=== PATIENT | female | born 1970 | race Caucasian/White ===

== ENCOUNTER 2021-11-05 22:33 | Inpatient (IN) | payer MEDICAID ==
[~2021-11-05] VITALS: Ht 149.9 cm; Wt 47.6 kg
--- NOTE | 2021-11-05 23:00 | NUR ---
PATIENT ANISH 39 [facility], C/O MISSING DIALYSIS TODAY. PATIENT ON TRACH/VENT TOLERATING SETTING AT THIS TIME/ PATIENT A/O X2-3. G TUBE INPLACE FLUSHING WELL. PATIENT CONNECTED TO CARDIAC AND POX MONITOR.
--- NOTE | 2021-11-05 23:12 | NUR ---
RT NOTE PT RECEIVED TRACH'D WITH A SHILEY 7.5 CUFFED. PLACED PATIENT ON GIVEN MECHANICAL VENT SETTINGS OF AC18 VT300 30% PEEP+5. NO SIGNS OF RESPIRATORY DISTRESS NOTED. PATIENT IS AWAKE AND ALERT. ALARMS ARE SET AND AUDIBLE. MECHANICAL VENT IS PLUGGED INTO RED OUTLET. EMERGENCY EQUIPMENT AT PATIENT BEDSIDE. WILL CONTINUE TO MONITOR PATIENT. Addendum: 11/05/21 at 2315 by LUIS RICKETTS RT Amended: Links added.
[2021-11-05 23:17] LABS: BASOPHILS # (AUTO) 0.2 K/uL (0.0-0.2); BASOPHILS % (AUTO) 0.8 % (0.0-2.0); EOSINOPHILS % (AUTO) 2.2 % (0.0-6.0); HEMATOCRIT 32 % (33-45); HEMOGLOBIN 10.3 g/dL (11.5-14.8); LYMPHOCYTES # (AUTO) 1.9 K/uL (0.8-4.8); LYMPHOCYTES % (AUTO) 8.3 % (20.0-44.0); MEAN CORPUSCULAR HGB CONC 33 g/dl (31.0-36.0); MEAN CORPUSCULAR VOLUME 91 fL (82-100); MONOCYTES # (AUTO) 1.4 K/uL (0.1-1.30); MONOCYTES % (AUTO) 6.1 % (2.0-12.0); NEUTROPHILS # (AUTO) 19.2 K/uL (1.8-8.9); NEUTROPHILS % (AUTO) 82.6 % (43.0-81.0); PLATELET COUNT (AUTO) 663 K/uL (150-450); RED BLOOD CELL COUNT(AUTO) 3.46 MIL/uL (4.0-5.2); WHITE BLOOD COUNT (AUTO) 23.3 K/uL (4.3-11.0)
[2021-11-05 23:36] LABS: CALCIUM, SERUM 10.1 mg/dL (8.5-10.1); CARBON DIOXIDE 24 mmol/L (21-32); CHLORIDE 92 mmol/L (98-107); CREATININE 4.4 mg/dL (0.6-1.3); GLUCOSE 98 mg/dL (74-106); SODIUM SERUM 129 mmol/L (136-145); UREA NITROGEN, BLOOD 62 mg/dL (7-18)
[2021-11-05 23:47] LABS: BAND % (MANUAL) 2 % (0.0-5.0); LYMPHOCYTES % (MANUAL) 12 % (16-48); MONOCYTES % (MANUAL) 5 % (0-11.0); NEUTROPHILS % (MANUAL) 78 (42-76)
[2021-11-05 23:48] LABS: EOSINOPHILS % (MANUAL) 2 % (0-4)
[2021-11-05 23:58] LABS: ALANINE AMINOTRANSFERASE 35 U/L (12-78); ALBUMIN 2.6 g/dL (3.4-5.0); ASPARTATE AMINOTRANSFERASE 45 U/L (15-37); BILIRUBIN,DIRECT 0.7 mg/dL (0.0-0.2); TOTAL PROTEIN, SERUM 9.1 g/dL (6.4-8.2)
[2021-11-06] MEDS ORDERED: INSULIN REGULAR, HUMAN 100 UNIT/ML 10 ML VIAL IV ONE
[2021-11-06] MEDS ORDERED: PIPERACILLIN /TAZOBACTAM 3.375 G in IV D5W 50 ML IV ONE
[2021-11-06] MEDS ORDERED: SODIUM BICARBONATE SYR 50 MEQ/50 ML DISP.SYRIN IV ONE
[2021-11-06] MEDS ORDERED: ALBUTEROL FS 2.5 MG/3 ML VIAL.NEB NEB ONE
[2021-11-06] MEDS ORDERED: CEFTRIAXONE 1GM BAG (ER ONLY) 1 GM/50 ML PIGGYBACK IV ONE
[2021-11-06] MEDS ORDERED: FUROSEMIDE 40 MG/4 ML VIAL IV ONE
[2021-11-06] MEDS ORDERED: AZITHROMYCIN 500 MG in IV D5W 250 ML IV ONE
[2021-11-06] MEDS ORDERED: CALCIUM CHLORIDE 1,000 MG/10 ML DISP.SYRIN IV ONE
[2021-11-06] MEDS ORDERED: DEXTROSE 50%-WATER 50 ML DISP.SYRIN IV ONE
[2021-11-06] MEDS ORDERED: VANCOMYCIN 1 GM in IV D5W 250 ML IV ONE
[2021-11-06] MEDS ORDERED: DEXTROSE 50%-WATER 50 ML DISP.SYRIN ONE (00:13)
[2021-11-06] MEDS ORDERED: SODIUM BICARBONATE SYR 50 MEQ/50 ML DISP.SYRIN ONE (00:13)
[2021-11-06] MEDS ORDERED: CALCIUM CHLORIDE 1,000 MG/10 ML DISP.SYRIN ONE (00:13)
[2021-11-06] MEDS ORDERED: VANCOMYCIN 1 GM VIAL ONE (00:13)
[2021-11-06] MEDS ORDERED: PIPERACILLIN /TAZOBACTAM 3.375 G VIAL IV ONE (00:13)
[2021-11-06] MEDS ORDERED: FUROSEMIDE 20 MG/2 ML VIAL ONE (00:13)
[2021-11-06] MEDS ORDERED: INSULIN REGULAR, HUMAN 100 UNIT/ML 10 ML VIAL ONE (00:14)
[2021-11-06 00:29] LABS: ALKALINE PHOSPHATASE 1090 U/L (46-116)
[2021-11-06] MEDS ORDERED: ALBUTEROL FS 2.5 MG/3 ML VIAL.NEB ONE (00:44)
[2021-11-06] MEDS ORDERED: MAG HYDROX/AL HYDROX/SIMETH 30 ML UDC PO PRN (01:30)
[2021-11-06] MEDS ORDERED: ACETAMINOPHEN 325 MG TABLET PO PRN (01:30)
[2021-11-06] MEDS ORDERED: ZOLPIDEM TARTRATE 5 MG TABLET PO PRN (01:30)
[2021-11-06] MEDS ORDERED: MAGNESIUM HYDROXIDE 30 ML UDC PO PRN (01:30)
[2021-11-06] MEDS ORDERED: Z GUARD REMEDY 2 OZ OINT TP PRN (01:30)
--- NOTE | 2021-11-06 01:30 | NUR ---
RAD AT BEDSIDE
--- NOTE | 2021-11-06 02:56 | NUR ---
BED 102
--- NOTE | 2021-11-06 03:04 | NUR ---
REPROT GIVEN TO RAJNI CLIFTON
--- NOTE | 2021-11-06 03:05 | NUR ---
RN NOTE REPORT RECEIVED BY RAJNI DE JESUS FOR YECENIA.
--- NOTE | 2021-11-06 03:31 | NUR ---
PT TRANSFERRED UNDER ACLS
--- NOTE | 2021-11-06 03:35 | NUR ---
RN NOTE PT BROUGHT TO UNIT VIA GURNEY FROM ER. PT IS TRACH.VENT WITH SETTING AT P#7, ACl18, TV: 300, AND PEEP 5. PT IS NOT ALERT OR ORIENTED, ON TELE MONITOR SHOWING NSR. SACRAL WOUND NOTED. IV ACCESS NOTED ON RIGHT FOREARM #20. LINE FLUSHED, PATENT, AND INTACT. WILL CONTINUE TO MONITOR.
--- NOTE | 2021-11-06 03:45 | NUR ---
RN NOTE PT BLOOD SUGAR SAID LOW ON ACCUCHECK. D50 ADMINISTERED. RECTAL TEMPERATURE TAKEN AND TEMP WAS 91.4. BEAR ASHLEY PUT ON PATIENT. DR. ANDRADE NOTIFIED ABOUT PT OVERALL CONDITION REGARDING LOW TEMPERATURE AND BLOOD SUGAR. BLOOD PRESSURE WAS ALSO 200/86. DR. ANDRADE ORDERED APRESOLINE 10MG. ORDER NOTED AND CARRIED OUT.
--- NOTE | 2021-11-06 03:55 | NUR ---
RN NOTE PT IS NOW ALERT AND ORIENTED AFTER ADMINISTRATION OF D50. PT IS ABLE TO MOVE AROUND AND MOUTH WORDS. WILL CONTINUE TO MONITOR AND ASSESS FOR ANY CHANGES DURING SHIFT.
[2021-11-06] MEDS: DEXTROSE 50%-WATER 50 ML DISP.SYRIN IV PRN ×2 (03:57→07:08)
[2021-11-06 04:00] VITALS: BP 200/86
[2021-11-06] MEDS ORDERED: hydrALAZINE HCL IV 20 MG VIAL IV ONE (04:00)
[2021-11-06] MEDS: HYDROCODONE/APAP 5/325MG TABLET PO PRN ×2 (04:14→17:52)
--- NOTE | 2021-11-06 04:20 | NUR ---
0420 BS re-checked with 133mg/dl result. Patient sleeping but responsive to name. No signs of distress noted. Will cont. to monitor.
--- NOTE | 2021-11-06 05:16 | NUR ---
RN NOTE PT BLOOD PRESSURE NOW 128/62 UPON RE-ASSESSMENT. WILL CONTINUE TO MONITOR BLOOD SUGAR, BP, AND TEMPERATURE THROUGHOUT SHIFT.
--- NOTE | 2021-11-06 06:43 | NUR ---
RN NOTE PT IS TRACH/VENT WITH SETTINGS AT P#7, AC:18, TV: 300, AND PEEP 5. PT IS NOW ALERT, NODS HEAD, AND SMILES. LAST BP READING WAS WNL, BLOOD SUGAR WAS 133. PT STILL COLD, BUT TEMPERATURE IMPROVING WITH BEAR HUGGER. ON TELE MONITOR SHOWING NSR. PICTURES TAKEN OF LEFT LEG, SACRUM, AND LEFT HAND. IV ACCESS NOTED ON RIGHT FOREARM #20. LINE FLUSHED, PATENT, AND INTACT. ALL DUE MEDS GIVEN ORDERED. PT KEPT CLEAN AND COMFORTABLE. ALL SAFETY MEASURES IMPLEMENTED. CALL LIGHT WITHIN REACH. BED ALARM ON. BED LOCKED AND IN LOWEST POSITION. SIDE RIALS UP. WILL ENDORSE TO MORNING SHIFT RN FOR YECENIA.
--- NOTE | 2021-11-06 07:09 | NUR ---
RN NOTE PT BLOOD SUGAR SAID LOW INITIALLY. AFTER RE-CHECKING THE SECOND TIME, THE BLOOD SUGAR WAS 18. D50 ADMINISTERED VIA IVP. WILL RECHECK SUGAR IN 30 MINUTES AND LET BABS MANZANO KNOW.
[2021-11-06] MEDS: BLOOD SUGAR DIAGNOSTIC 1 EACH STRIP VI SCH ×4 (07:38→22:16)
--- NOTE | 2021-11-06 07:41 | NUR ---
RN OPENING NOTE PATIENT RECEIVED IN BED, OBTUNDED, EYES OPEN. PATIENT ON MECHANICAL VENTILATOR WITH NO SIGNS OF LABORED BREATHING AT THIS TIME. BLOOD SUGAR LOW IN THE MORNING OF 18, D50 PUSHED, BLOOD SUGAR 150 AT THIS TIME AND PATIENT AWAKE. G TUBE IN PLACE, NO FEEDING AT THIS TIME. RIGHT FA 20G IN PLACE, PATENT WITH NO SIGNS OF INFILTRATION. BED LOCKED AND IN LOWEST POSITION, CALL LIGHT WITHIN REACH, 3 SIDE RAILS UP. ALL SAFETY MEASURES IMPLEMENTED. WILL CONTINUE TO MONITOR.
[2021-11-06] MEDS ORDERED: CRAN3875 JT (07:50)
[2021-11-06] MEDS ORDERED: LIDO35.4 TD (07:50)
[2021-11-06] MEDS ORDERED: CRAN425C6 JT (07:50)
[2021-11-06] MEDS ORDERED: ACET650S26 JT (07:50)
[2021-11-06] MEDS ORDERED: CHLO473M5 MM (07:50)
[2021-11-06] MEDS ORDERED: [UNRECOGNIZED DRUG - CODE] TD (07:50)
[2021-11-06] MEDS ORDERED: INSU100V7 SQ (07:50)
[2021-11-06] MEDS ORDERED: NUT.237L66 JT (07:50)
[2021-11-06] MEDS ORDERED: HYDR-4075 JT (07:50)
[2021-11-06] MEDS ORDERED: PANT40SU2 JT (07:50)
[2021-11-06] MEDS ORDERED: IPRA3AMP23 IH ×2 (07:50)
[2021-11-06] MEDS ORDERED: MINE105O TP (07:50)
[2021-11-06] MEDS ORDERED: HYDR4TAB57 JT (07:50)
--- NOTE | 2021-11-06 07:54 | NUR ---
WOUND CARE CONSULT: REVIEWED CHART, NURSING DOCUMENTATION AND PHOTOS WHICH INDICATE LEFT LOWER EXTREMITY AMPUTATION SITE, SACRAL UNSTAGEABLE PRESSURE ULCER AND LEFT HAND DISCOLORATION/DRY ABRASION, ALL PRESENT ON ADMISSION. RECOMMEND SURGICAL CONSULT. DR STAHL NOTIFIED OF SURGICAL CONSULT REQUEST. RECOMMENDATIONS MADE FOR SKIN PROTECTION. DISCUSSED WITH NURSING STAFF. FIRST STEP LOW AIRLOSS MATTRESS IS ON ORDER. MD IN AGREEMENT WITH PLAN OF CARE. Addendum: 11/06/21 at 0825 by POLI SEYMOUR WNDNU PT IS VERY THIN AND BONY. DIETARY CONSULT IN PLACE.
[2021-11-06 08:00] VITALS: BP 135/64
[2021-11-06] MEDS ORDERED: PIPERACILLIN /TAZOBACTAM 3.375 G in IV D5W 50 ML IV SCH (08:00)
[2021-11-06] MEDS: Sodium Chloride 154 MEQ in IV 10% DEXTROSE 1,000 ML IV SCH ×2 (08:12→22:21)
[2021-11-06] MEDS ORDERED: VANCOMYCIN 500 MG in IV D5W 100 ML IV PRN (08:30)
[2021-11-06] MEDS ORDERED: IV 10% DEXTROSE 1,000 ML IV PRN (08:30)
[2021-11-06] MEDS: ZOSYN IVPB 2.25 G in IV D5W 50ml IV SCH ×3 (09:16→17:52)
[2021-11-06 12:00] VITALS: BP 110/85
--- NOTE | 2021-11-06 13:00 | NUR ---
RN NOTE HEMODYALISIS COMPLETED AT BEDSIDE. PATIENT TOLERATED WELL. VITAL SIGNS STABLE. NO FLUID REMOVED. WILL CONTINUE TO MONITOR.
--- NOTE | 2021-11-06 15:40 | NUR ---
RN NOTE RIGHT LUNG THORACENTESIS AT BEDSIDE COMPLETED. PATIENT TOLERATED THE PROCEDURE WELL. SAMPLE TAKEN TO LAB PER ORDER. CHEST XRAY COMPLETED. WILL CONTINUE TO MONITOR.
[2021-11-06 16:00] VITALS: BP 172/63
--- NOTE | 2021-11-06 18:34 | NUR ---
RN CLOSING NOTE PATIENT IN BED, RESTING, RESPONSIVE. PATIENT WITH MECHANICAL VENTILATION WITH FIO2 OF 30 AND SATURATING 98%. G TUBE IN PLACE RUNNING NEPRO AT 55CC/HR. RIGHT UPPER ARM MIDLINE 18G AND RIGHT FA 20G PIV IN PLACE, PATENT WITH NO SIGNS OF INFILTRATION AND RUNNING D10 AT 75CC/HR. ALL NEEDS ATTENDED DURING SHIFT. NO SIGNS OF DISTRESS NOTED AT THIS TIME. BED LOCKED AND IN LOWEST POSITION, CALL LIGHT WITHIN REACH, 3 SIDE RAILS UP. ALL SAFETY MEASURES IMPLEMENTED. WILL ENDORSE TO AUTOMOTIVE ARTIST NURSE.
--- NOTE | 2021-11-06 19:10 | NUR ---
RN NOTES RECEIVED REPORT FROM MORNING RN. PATIENT IN BED A/O X1-2. ABLE TO MAKE NEEDS KNOWN. NOT IN DISTRESS DORYS SOB AT THIS TIME. WITH TRACH SHILEY # 7 INTACT CONNECETED TO MECHANICAL VENTILATOR WITH PRESCRIBED SETTING. WITH JEJUNOSTOMY PATENT CONNECTED TO CONTINOUS FEEDING OF NEPRO AT 55CC/HR TOLERAING WELL BY THE PATIENT. WITH UA MIDLINE PATENT FLUSHES WELL WITH PERMACATH AR L CHESTWALL INTACT NO BLEEDING NOTED . WITH ONGONING IVF OF D10W @75CC/HR TOLERATING WELL. WITH L AKA INTACT NO DRAINAGE NOTED AT THE DRESSING. VITAL SIGNS TAKEN AND RECORDED. ALL SAFETY MEASURES IN PLACE AT ALL TIMES. HOB ELEVATED, CALL LIGHT WITHIN REACH. S/P THORACENTHESIS IN THE MORNING. WILL CLOSELY MONITOR THE PATIENT.
--- NOTE | 2021-11-06 19:54 | NUR ---
RT NOTE PT RECEIVED AWAKE/ALERT WITH TRACH ON MECHANICAL VENTILATION. CUFF CHECKED. SUCTION DONE, TRACH SECURED AND PATENT. SMALL SECRETIONS NOTED. VENT PLUGGED TO RED OUTLET. ALARMS ON AND AUDIBLE. WILL CONTINUE TO MONITOR. Addendum: 11/06/21 at 1955 by KELSY MARTINEZ RT Amended: Links added.
[2021-11-06 20:00] VITALS: BP 148/66
[2021-11-06] MEDS ORDERED: MEROPENEM 500 MG in IV NS 0.9% 50 ML IV SCH (21:30)
[2021-11-06] MEDS ORDERED: MEROPENEM 500 MG VIAL IV ONE (22:01)
--- NOTE | 2021-11-06 22:20 | NUR ---
RN NOTES BS 70MG/DL WILL CONTINUE TO MONITOR. PATIENT IS AWAKE AND RESPONSIVE. WILL CONTINUE TO MONITOR
[2021-11-06] MEDS: DAKINS QUARTER STRENGTH (0.125%) 480 ML BOTTLE TOP SCH (23:00)
--- NOTE | 2021-11-06 23:47 | NUR ---
CUTTER DOWN NOTE NURSING DISH MAKER INFORMED THAT NEEDED NS 153 MEQ D10 1L BAG, ALSO INFORMED BETTYE ANDRADE BUCKSHOT SWAGE OPERATOR REGARDING NA LEVEL OF 129. PER BETTYE RECHECK NA LEVEL. AND FOLLOW UP. ORDER NOTED AND CARRIED OUT.
[2021-11-07] VITALS (8 sets, daily range): BP systolic 123–174; BP diastolic 39–88
--- NOTE | 2021-11-07 01:45 | NUR ---
SENIOR PHYSICAL THERAPIST NOTE INFORMED BETTYE ANDRADE NA LEVEL 130 AND PER BETTYE START D10 NS, INFORMED HER THAT IS NOT AVAILABLE AT THIS, BETTYE ORDERED D5NS 75 ML/HR, ORDER NOTED AND CARRIED OUT. INFORMED NURSE CUMMINS TO CONTINUE TO FOLLOW UP. BS AT THIS TIME 156. NO DISTRESS OR DISCOMFORT NOTED.
[2021-11-07] MEDS: IV D5/ 0.9% NACL 1,000 ML IV PRN ×2 (01:51→14:09)
[2021-11-07] MEDS: ONDANSETRON HCL/PF 4 MG/2 ML VIAL IVP PRN (02:07)
--- NOTE | 2021-11-07 02:07 | NUR ---
RN NOTES PATIENT WITH 1 EPISODE OF EMESIS SMALL AMOUNT PRN ZOFRAN GIVEN. WILL CONTINUE TO MONITOR
--- NOTE | 2021-11-07 06:32 | NUR ---
RN NOTES PATIENT REMAINS STABLE THE WHOLE SHIFT NO DISTRESS. ALL DUE MEDS GIVEN ORDERED. KEPT CLEAN AND DEY AT ALL TIMES. BOTH SIDERAILS UP FOR SAFETY WOUND DRESSING DONE TOLERATED WELL. REPOSITION PATIENT Q2H. ALL NEEDS ATTENDED PROMPTLY. WILL CONTINUE TO MONITOR.
[2021-11-07 06:47] LABS: BASOPHILS # (AUTO) 0.1 K/uL (0.0-0.2); BASOPHILS % (AUTO) 0.5 % (0.0-2.0); EOSINOPHILS % (AUTO) 2.3 % (0.0-6.0); HEMATOCRIT 30 % (33-45); HEMOGLOBIN 9.6 g/dL (11.5-14.8); LYMPHOCYTES # (AUTO) 2.7 K/uL (0.8-4.8); LYMPHOCYTES % (AUTO) 11.9 % (20.0-44.0); MEAN CORPUSCULAR HGB CONC 33 g/dl (31.0-36.0); MEAN CORPUSCULAR VOLUME 92 fL (82-100); MONOCYTES # (AUTO) 1.8 K/uL (0.1-1.30); MONOCYTES % (AUTO) 7.7 % (2.0-12.0); NEUTROPHILS # (AUTO) 17.8 K/uL (1.8-8.9); NEUTROPHILS % (AUTO) 77.6 % (43.0-81.0); PLATELET COUNT (AUTO) 596 K/uL (150-450); WHITE BLOOD COUNT (AUTO) 22.9 K/uL (4.3-11.0)
[2021-11-07 06:59] LABS: CALCIUM, SERUM 9.3 mg/dL (8.5-10.1); CREATININE 2.4 mg/dL (0.6-1.3); MAGNESIUM 2.2 mg/dL (1.8-2.4); PHOSPHORUS 3.1 mg/dL (2.5-4.9); POTASSIUM 3.8 mmol/L (3.5-5.1)
--- NOTE | 2021-11-07 07:40 | NUR ---
RN MORNING NOTE PT RECEIVED IN BED WITH HOB SEMI FOWLERS. PT IS ON MECHANICAL VENTILATOR TRACH #7 AC 18, TV 300, FIO2 30 PEEP 5 O2 SAT 98% TOLERATING WELL WITH NO SIGNS OF LABORED BREATHING OR DISTRESS. PT IS A/OX 1-2. PT IS ON DIAPER AND RECEIVING NEPHRO @ 35ML/HR AND TITRATE TOLERATED. PT HAS R FA #20 AND R UA #18 INFUSING WITH D10 @ 75ML/R. BED IS LOCKED IN LOWEST POSITION X3 BED RAILS AND ALL HOSPITAL PROTOCOLS IN PLACE. WILL CONTINUE TO MONITOR THIS SHIFT.
[2021-11-07] MEDS: BLOOD SUGAR DIAGNOSTIC 1 EACH STRIP VI SCH ×4 (08:18→21:28)
[2021-11-07] MEDS: INSULIN REGULAR, HUMAN 100 UNIT/ML 3 ML VIAL SQ PRN (08:31)
[2021-11-07] MEDS: MEROPENEM 500 MG in IV NS 0.9% 50 ML IV SCH ×2 (09:55→20:24)
[2021-11-07] MEDS: DAKINS QUARTER STRENGTH (0.125%) 480 ML BOTTLE TOP SCH (09:55)
--- NOTE | 2021-11-07 10:00 | NUR ---
RN NOTE TUBE FEEDING INCREASED TO 40ML/HR FROM 35. PT TOLERATING WELL AT THIS TIME.
[2021-11-07] MEDS: DEXTROSE 50%-WATER 50 ML DISP.SYRIN IV PRN (11:56)
--- NOTE | 2021-11-07 12:00 | NUR ---
RN NOTE ACCUCHECK PT BS 38. ADMINISTERED D50 AND WILL REASSESS.
--- NOTE | 2021-11-07 12:26 | NUR ---
RN NOTE BLOOD SUGAR REASSESSMENT PT BS 165.
--- NOTE | 2021-11-07 16:00 | NUR ---
RN NOTE RECEIVED PHONE CALL FROM [facility]. PT IS POS MRSA Aime MATTA.
--- NOTE | 2021-11-07 19:00 | NUR ---
RN NOTE RECEIVED PATIENT IN BED RESTING ALERT ORIENTED 2 ON MECHANICAL VENT SETTING ON TRACH PORTEX #7 AC 18 TV 300 FIO2:30% PEEP 5 O2:98% ON G-TUBE FEEDING NEPRO 40CC/HR CHECKED PLACEMENT,IN PLACE NO RESIDUAL NOTED,INCONTINENT TO BOWEL/BLADDER.IV SITE IS ON RIGHT UPPER ARM MIDLINE INTACT PATENT ON IV HYDRATION D5NS AT 75CC/HR RUNNING SAFETY MEASURE IMPLEMENT BED IN LOW POSITION AND LOCKED,HEAD OF THE BED ELEVATED,CONTINUE TO MONITOR.
--- NOTE | 2021-11-07 19:31 | NUR ---
PT RECEIVED AWAKE/ALERT WITH TRACH ON VENT WITH THE SETTINGS OF AC 18, VT 300, PEEP 5, FIO2 30%. CUFF CHECKED. SUCTION DONE, TRACH SECURED AND PATENT. SMALL SECRETIONS NOTED. VENT PLUGGED TO RED OUTLET. ALARMS ON AND AUDIBLE. WILL CONTINUE TO MONITOR T/O SHIFT.
--- NOTE | 2021-11-07 20:06 | NUR ---
RN CLOSING NOTE PT CONTINUES TO LAY IN BED IN FOWLERS. PT IS ON MECHANICAL VENTILATOR TRACH #7 AC 18, TV 300, FIO2 30 PEEP 5 O2 SAT 95% TOLERATING WELL WITH NO SIGNS OF LABORED BREATHING OR DISTRESS. PT IS A/OX 1-2. PT IS ON DIAPER AND RECEIVING NEPHRO @ 35ML/HR AND TITRATE TOLERATED. PT HAD X2 EMESIS. PT POS FOR MRSA R NARE. PT HAS R FA #20 AND R UA #18 INFUSING WITH D10 @ 75ML/R. BED IS LOCKED IN LOWEST POSITION X3 BED RAILS AND ALL HOSPITAL PROTOCOLS IN PLACE. WILL ENDORSE TO LOG SORTER NURSE FOR YECENIA.
[2021-11-07] MEDS ORDERED: MUPIROCIN OINT 2% 22 GM TUBE NS SCH (21:00)
[2021-11-07] MEDS: *INSULIN REGULAR(HUMULIN R)HUM 100 UNIT/ML VIAL SQ PRN (21:35)
[2021-11-07] MEDS: HYDROCODONE/APAP 5/325MG TABLET PO PRN (22:53)
--- NOTE | 2021-11-07 22:53 | NUR ---
RN NOTE NORCO 5-325 MG GIVEN FOR PAIN PATIENT REQUESTED CONTINUE TO MONITOR
[2021-11-08] VITALS: BP 132/50
--- NOTE | 2021-11-08 | NUR ---
RN NOTE PATIENT NOT COMPLAINING ABOUT PAIN CONTINUE TO MONITOR.
[2021-11-08] MEDS: IV D5/ 0.9% NACL 1,000 ML IV PRN (02:05)
[2021-11-08 04:00] VITALS: BP 148/61
--- NOTE | 2021-11-08 06:28 | NUR ---
RN NOTE PATIENT REMAINS ON ALERT ORIENTED 2 ON TRACH AND MECHANICAL VENT NO SOB NOT ACUTE DISTRESS NOTED IV SITE IS ON RIGHT UPPER ARM INTACT PATENT ON IV HYDRATION D5NS 75CC/HR ON G-TUBE FEEDING NEPHRO 40CC/HR,WOUND TREATMENT DONE REPOSITIONED EVERY 2 HOURS KEPT CLEAN AND DRY ALL THE TIME,HEAD OF THE BED ELEVATED CALL LIGHT WITHIN REACH ENDORSE NEXT COMING SHIFT FOR CONTINUATION OF CARE.
[2021-11-08] MEDS: NEPRO 1,000 ML BOTTLE GT PRN (06:36)
[2021-11-08 06:49] LABS: BASOPHILS # (AUTO) 0.1 K/uL (0.0-0.2); BASOPHILS % (AUTO) 0.5 % (0.0-2.0); EOSINOPHILS % (AUTO) 3.4 % (0.0-6.0); HEMATOCRIT 28 % (33-45); HEMOGLOBIN 9.3 g/dL (11.5-14.8); LYMPHOCYTES # (AUTO) 3.1 K/uL (0.8-4.8); LYMPHOCYTES % (AUTO) 15.7 % (20.0-44.0); MEAN CORPUSCULAR HGB CONC 33 g/dl (31.0-36.0); MEAN CORPUSCULAR VOLUME 93 fL (82-100); NEUTROPHILS # (AUTO) 14.1 K/uL (1.8-8.9); NEUTROPHILS % (AUTO) 70.4 % (43.0-81.0); PLATELET COUNT (AUTO) 646 K/uL (150-450); RED BLOOD CELL COUNT(AUTO) 3.06 MIL/uL (4.0-5.2); WHITE BLOOD COUNT (AUTO) 20.1 K/uL (4.3-11.0)
[2021-11-08 07:13] LABS: CALCIUM, SERUM 9.5 mg/dL (8.5-10.1); CREATININE 3.1 mg/dL (0.6-1.3); MAGNESIUM 2.3 mg/dL (1.8-2.4); PHOSPHORUS 3.6 mg/dL (2.5-4.9); POTASSIUM 3.8 mmol/L (3.5-5.1)
--- NOTE | 2021-11-08 07:30 | NUR ---
RN MORNING NOTE PT RECEIVED IN BED WITH HOB SEMI FOWLERS. PT IS ON MECHANICAL VENT P#7 AC 18, TV 300, FIO2 30 PEEP 5 SAT 98% TOLERATING WELL. PT A/O X 1 - 2 ON TELE SR. PT IS ON DIAPER WITH BR. PT TUBE FEEDING NEPRO @40ML HR. PT WILL HAVE HD TODAY. BED LOCKED IN LOWEST POSITION ALL SAFETY MEASURES IN PLACE WILL CONTINUE TO MONITOR THIS SHIFT.
[2021-11-08] MEDS: BLOOD SUGAR DIAGNOSTIC 1 EACH STRIP VI SCH ×4 (07:32→22:07)
[2021-11-08 08:00] VITALS: BP 128/67
[2021-11-08] MEDS: INSULIN REGULAR, HUMAN 100 UNIT/ML 3 ML VIAL SQ PRN (08:19)
[2021-11-08] MEDS: MEROPENEM 500 MG in IV NS 0.9% 50 ML IV SCH ×2 (08:21→20:47)
[2021-11-08] MEDS: DAKINS QUARTER STRENGTH (0.125%) 480 ML BOTTLE TOP SCH (08:21)
[2021-11-08] MEDS: MUPIROCIN OINT 2% 22 GM TUBE NS SCH ×2 (11:39→20:45)
[2021-11-08 12:00] VITALS: BP 124/67
[2021-11-08] MEDS: HYDROCODONE/APAP 5/325MG TABLET PO PRN (12:59)
[2021-11-08 16:00] VITALS: BP 110/36
[2021-11-08] MEDS: DEXTROSE 50%-WATER 50 ML DISP.SYRIN IV PRN (17:32)
--- NOTE | 2021-11-08 17:38 | NUR ---
RN NOTE ACCUCHECK PT BS 54. D50 GIVEN. WILL REASSESS.
--- NOTE | 2021-11-08 19:15 | NUR ---
personal computer specialist opening notes Received Pt from morning nurse. Pt is laying in bed comfortably talking on the phone with family. Pt is alert and orientedX1-2 and able to make needs known. Pt is vent trach saturation 100%. No SOB. No S/S of distress noted. Tele monitor showed SR hr at 65. JANET midline # 18 is clean, intact and infusing well D5NS@ 75 ml/hr. KATELYN permacath is clean, and intact. G-tube feeding in not working at this time. Will F/U regarding tube feeding. Safety precautions is maintained. Bed at low position, brakes locked, side railsupX3 and call light is within reach. Will continue to monitor.
[2021-11-08] MEDS ORDERED: EPOETIN ALFA (4000 UNIT) 4,000 UNIT/ML VIAL SQ SCH (19:30)
--- NOTE | 2021-11-08 19:35 | NUR ---
RN MORNING NOTE PT REMAINS IN BED WITH HOB SEMI FOWLERS. PT IS ON MECHANICAL VENT P#7 AC 18, TV 300, FIO2 30 PEEP 5 SAT 98% TOLERATING WELL. PT A/O X 1 - 2 ON TELE SR. PT IS ON DIAPER WITH BR. AC NOT WORKING AND MD HAS BEEN NOTIFIED AND ENDORSED TO HOSPICE NURSE NURSE. PT HAD HD 1L REMOVED AND STABLE. EVENING ACCUCHECK BS WAS 54 AND D50 GIVEN AND REASSESSED AND WAS 129. BED LOCKED IN LOWEST POSITION ALL SAFETY MEASURES IN PLACE WILL ENDORSE TO HOSPICE NURSE NURSE FOR YECENIA.
[2021-11-08 20:00] VITALS: BP 122/42
[2021-11-08] MEDS: *INSULIN REGULAR(HUMULIN R)HUM 100 UNIT/ML VIAL SQ PRN (22:07)
--- NOTE | 2021-11-08 22:08 | NUR ---
RN notes Pt's blood sugar HS 64. Informed and notified MD regarding Blood sugar and Pt's Gtube is not working. MD ordered D5ns@ 75 ml/hr. Pt is awake and alert 1-2 and able to verbalized needs. Order carried out. Charge nurse is aware and informed. Will continue to monitor.
[2021-11-08] MEDS: IV D5/ 0.9% NACL 1,000 ML IV SCH (22:41)
--- NOTE | 2021-11-08 23:27 | NUR ---
RN notes Pt is awake and alert and orientedX2. Pt's blood sugar is 61. Pt is receiving D5NS@ 75 ml/hr. MD is aware. Will rechecked again.
[2021-11-09] VITALS: BP 118/43
--- NOTE | 2021-11-09 00:19 | NUR ---
RN notes Pt is awake and alert and orientedX2 and able to make needs known. Pt's blood sugar is 63. Pt is receiving D5NS@ 75 ml/hr. Charge nurse is aware and informed. Will recheck it again.
--- NOTE | 2021-11-09 02:07 | NUR ---
RN notes Pt's BS is 66. Pt is A/O X2, awake and able to make needs known and IV fluids still infuising. No S/S of hypoglycemia noted. Will recheck again.
--- NOTE | 2021-11-09 03:36 | NUR ---
RN notes Pt's blood sugar 71. Charge nurse is aware and informed. Will continue to monitor.
[2021-11-09 04:00] VITALS: BP 117/61
[2021-11-09 06:09] LABS: BASOPHILS # (AUTO) 0.1 K/uL (0.0-0.2); BASOPHILS % (AUTO) 0.3 % (0.0-2.0); HEMATOCRIT 26 % (33-45); HEMOGLOBIN 8.6 g/dL (11.5-14.8); LYMPHOCYTES % (AUTO) 19.4 % (20.0-44.0); MEAN CORPUSCULAR HGB CONC 33 g/dl (31.0-36.0); MEAN CORPUSCULAR VOLUME 93 fL (82-100); MONOCYTES # (AUTO) 1.8 K/uL (0.1-1.30); MONOCYTES % (AUTO) 11.7 % (2.0-12.0); NEUTROPHILS # (AUTO) 9.9 K/uL (1.8-8.9); NEUTROPHILS % (AUTO) 64.6 % (43.0-81.0); PLATELET COUNT (AUTO) 608 K/uL (150-450); RED BLOOD CELL COUNT(AUTO) 2.79 MIL/uL (4.0-5.2); WHITE BLOOD COUNT (AUTO) 15.4 K/uL (4.3-11.0)
--- NOTE | 2021-11-09 06:30 | NUR ---
alarm technician closing notes Pt is resting in bed comfortably. Pt is alert and orientedX1-2 and able to make needs known. Pt is vent trach saturation 100%. No SOB. No S/S of distress noted. Tele monitor showed SR hr at 81. JANET midline # 18 is clean, intact and infusing well D5NS@ 75 ml/hr. KATELYN permacath is clean, and intact. G-tube feeding still not working. Wound care provided. Kept Pt clean, dry and comfortable. Safety precautions is maintained. Bed at low position, brakes locked, side railsupX3 and call light is within reach. Will endorse to am nurse for YECENIA.
--- NOTE | 2021-11-09 07:36 | NUR ---
RN OPENING NOTE PATIENT RECEIVED IN BED, RESTING. PATIENT ON MECHANICAL VENTILATOR WITH FIO2 OF 30% AND NO SIGNS OF LABORED BREATHING AT THIS TIME. TELE MONITOR ON, SINUS RHYTHM. G TUBE IN PLACE, NO FEEDING AT THIS TIME. LEFT UC PERMACATH IN PLACE AND JANET MIDLINE IN PLACE, PATENT WITH NO SIGNS OF INFILTRATION AND RUNNING D5NS AT 75 CC/HR. NO SIGNS OF DISTRESS NOTED AT THIS TIME. BED LOCKED AND IN LOWEST POSITION, CALL LIGHT WITHIN REACH, 3 SIDE RAILS UP. WILL CONTINUE TO MONITOR.
[2021-11-09 08:00] VITALS: BP 169/77
[2021-11-09 08:02] LABS: CALCIUM, SERUM 8.9 mg/dL (8.5-10.1); CREATININE 1.8 mg/dL (0.6-1.3); PHOSPHORUS 2.9 mg/dL (2.5-4.9); POTASSIUM 3.3 mmol/L (3.5-5.1)
[2021-11-09] MEDS: BLOOD SUGAR DIAGNOSTIC 1 EACH STRIP VI SCH ×4 (08:03→21:21)
[2021-11-09] MEDS: MEROPENEM 500 MG in IV NS 0.9% 50 ML IV SCH ×2 (08:54→21:09)
[2021-11-09] MEDS: MUPIROCIN OINT 2% 22 GM TUBE NS SCH ×2 (09:01→21:36)
[2021-11-09] MEDS: DAKINS QUARTER STRENGTH (0.125%) 480 ML BOTTLE TOP SCH (09:01)
[2021-11-09] MEDS ORDERED: POTASSIUM CL. PREMIX PERIPHER. 50 ML IV SCH (09:30)
[2021-11-09] MEDS ORDERED: Magnesium 1GM/D5W 100ML PREMIX 100 ML IV SCH (10:00)
[2021-11-09] MEDS: IV D5/ 0.9% NACL 1,000 ML IV SCH (11:14)
[2021-11-09 12:00] VITALS: BP 187/92
[2021-11-09 16:00] VITALS: BP 182/79
[2021-11-09] MEDS: DEXTROSE 50%-WATER 50 ML DISP.SYRIN IV PRN (16:52)
[2021-11-09] MEDS: MORPHINE SULFATE INJ 2 MG/ML DISP.SYRIN IV PRN ×2 (17:33→22:17)
--- NOTE | 2021-11-09 18:30 | NUR ---
RN CLOSING NOTE PATIENT REMAINS IN BED, AWAKE. PATIENT ON MECHANICAL VENTILATOR WITH FIO2 OF 30% AND NO SIGNS OF LABORED BREATHING AT THIS TIME. TELE MONITOR ON, SINUS RHYTHM. G TUBE IN PLACE, NO FEEDING AT THIS TIME. LEFT UC PERMACATH IN PLACE AND JANET MIDLINE IN PLACE, PATENT WITH NO SIGNS OF INFILTRATION AND RUNNING D5NS AT 75 CC/HR. NO SIGNS OF DISTRESS NOTED DURING SHIFT, ALL NEEDS ATTENDED. BED LOCKED AND IN LOWEST POSITION, CALL LIGHT WITHIN REACH, 3 SIDE RAILS UP. WILL ENDORSE TO BOAT CAMP OPERATOR NURSE.
--- NOTE | 2021-11-09 19:00 | NUR ---
RN NOTE RECEIVED PATIENT IN BED, AO X 1-2, IN NO S/SX OF ACUTE DISTRESS AT THIS TIME. ON TRACH PORTEX 7 CONNECTED TO MECHANICAL VENT WITH SETTINGS PRESCRIBED: AC 18, TV 300, FIO2 30%, PEEP 5, TOLERATING WELL, SATURATION AT 100%, SR ON THE MONITOR, HR IS 73. NOTED JANET MIDLINE, PATENT AND FLUSHING WELL, NO S/S OF INFECTION; L UPPER CHEST PERMACATH IN PLACE, NO S/S OF INFECTION NOTED. GTUBE CLOGGED AWARE, CLAMPED. SAFETY MEASURES IMPLEMENTED. PATIENT BED ALARM IS ON. HEAD OF BED ELEVATED. BED IS LOCKED, IN LOWEST POSITION AND SIDE RAILS UP. CALL LIGHT WITHIN REACH OF THE PATIENT. WILL CONTINUE TO MONITOR AND REASSESS FOR ANY CHANGES.
[2021-11-09 20:00] VITALS: BP 161/75
--- NOTE | 2021-11-09 21:00 | NUR ---
RN NOTE NOTED BP 161/75. PT C/O PAIN ON R ARM AND BACK. PRN MORPHINE 2MG IV ADMINISTERED ORDERED. BP RECHECKED AND RESULTED 149/60. WILL CONT TO MONITOR
[2021-11-10] VITALS: BP 165/84
[2021-11-10] MEDS: IV D5/ 0.9% NACL 1,000 ML IV SCH (01:50)
[2021-11-10] MEDS: MORPHINE SULFATE INJ 2 MG/ML DISP.SYRIN IV PRN ×4 (02:28→20:15)
[2021-11-10 04:00] VITALS: BP 187/71
[2021-11-10] MEDS: hydrALAZINE HCL IV 20 MG VIAL IV PRN (05:59)
[2021-11-10 06:29] LABS: BASOPHILS # (AUTO) 0.1 K/uL (0.0-0.2); BASOPHILS % (AUTO) 0.6 % (0.0-2.0); EOSINOPHILS % (AUTO) 5.1 % (0.0-6.0); HEMATOCRIT 27 % (33-45); HEMOGLOBIN 8.8 g/dL (11.5-14.8); LYMPHOCYTES # (AUTO) 3.2 K/uL (0.8-4.8); LYMPHOCYTES % (AUTO) 19.7 % (20.0-44.0); MEAN CORPUSCULAR HGB CONC 32 g/dl (31.0-36.0); MEAN CORPUSCULAR VOLUME 94 fL (82-100); MONOCYTES # (AUTO) 2.2 K/uL (0.1-1.30); MONOCYTES % (AUTO) 13.7 % (2.0-12.0); NEUTROPHILS # (AUTO) 9.9 K/uL (1.8-8.9); NEUTROPHILS % (AUTO) 60.9 % (43.0-81.0); PLATELET COUNT (AUTO) 639 K/uL (150-450); WHITE BLOOD COUNT (AUTO) 16.2 K/uL (4.3-11.0)
[2021-11-10 07:15] LABS: CREATININE 2.5 mg/dL (0.6-1.3); MAGNESIUM 2.5 mg/dL (1.8-2.4); PHOSPHORUS 4.4 mg/dL (2.5-4.9); POTASSIUM 3.8 mmol/L (3.5-5.1)
--- NOTE | 2021-11-10 07:26 | NUR ---
RN OPENING NOTE PATIENT RECEIVED IN BED, RESTING. PATIENT WITH MECHANICAL VENTILATION WITH FIO2 OF 30% WITH NO SIGNS OF LABORED BREATHING AT THIS TIME. G TUBE IN PLACE, OCCLUDED AT THIS TIME. LEFT UC PERMACATH AND RIGHT UA MIDLINE IN PLACE, PATENT WITH NO SIGNS OF INFILTRATION AND RUNNING D5NS AT 75 CC/HR. NO SIGNS OF DISTRESS NOTED AT THIS TIMEBED LOCKED AND IN LOWEST POSITION, CALL LIGHT WITHIN REACH, 3 SIDE RAILS UP. WILL CONTINUE TO MONITOR.
[2021-11-10 08:00] VITALS: BP 156/85
[2021-11-10] MEDS: BLOOD SUGAR DIAGNOSTIC 1 EACH STRIP VI SCH ×4 (08:00→22:55)
[2021-11-10] MEDS: DEXTROSE 50%-WATER 50 ML DISP.SYRIN IV PRN ×2 (08:00→11:33)
[2021-11-10] MEDS: MEROPENEM 500 MG in IV NS 0.9% 50 ML IV SCH ×2 (08:00→20:14)
[2021-11-10] MEDS: MUPIROCIN OINT 2% 22 GM TUBE NS SCH ×2 (08:06→20:58)
[2021-11-10] MEDS: DAKINS QUARTER STRENGTH (0.125%) 480 ML BOTTLE TOP SCH (08:06)
--- NOTE | 2021-11-10 11:47 | NUR ---
BLOOD SUGAR CONSISTENTLY LOW,PEG FEEDING ON HOLD R/T MALFUNCTION GTUBE DR. CARRERO ORDERED CHANGE FLUIDS TO D10.PRIMARY RN NOTIFIED.
[2021-11-10] MEDS: IV 10% DEXTROSE 1,000 ML IV PRN (11:52)
[2021-11-10 12:00] VITALS: BP 167/90
[2021-11-10 16:00] VITALS: BP 157/72
--- NOTE | 2021-11-10 18:37 | NUR ---
RN CLOSING NOTE PATIENT REMAINS IN BED, RESTING. PATIENT WITH MECHANICAL VENTILATION WITH FIO2 OF 30% WITH NO SIGNS OF LABORED BREATHING AT THIS TIME. G TUBE IN PLACE, OCCLUDED AT THIS TIME. LEFT UC PERMACATH AND RIGHT UA MIDLINE IN PLACE, PATENT WITH NO SIGNS OF INFILTRATION AND RUNNING D10 AT 75 CC/HR. NO SIGNS OF DISTRESS NOTED AT THIS TIME. ALL NEEDS ATTENDED DURING SHIFT. BED LOCKED AND IN LOWEST POSITION, CALL LIGHT WITHIN REACH, 3 SIDE RAILS UP. WILL ENDORSE TO ARTIFICIAL LIMB MAKER NURSE.
--- NOTE | 2021-11-10 19:25 | NUR ---
RN OPENING NOTES RECEIVED PATIENT ON BED, ALERT, AWAKE, RESPIRATORY EVEN AND UNLABORED, WITH MECHANICAL VENTILATOR WITH FIO2 30%, TV 300, PEEP 5, NO SOB NOTED, DENIES PAIN, NO S/S OF DISTRESS NOTED, REMAIN AFEBRILE. RESIDENT NOTED WITH JANET MIDLINE PATENT, INTACT AND FLUSHED WITH NS, NO INFILTRATION NOTED IN SITE. WITH LEFT UPPER CHEST PERMA CATH FOR HD. GTUBE INPLACED BUT CURRENT OCCLUDED. RUNNING ON D10 1L @ 75CC/HR TOLERATED WELL. BED IN LOWEST POSITION, LOCKED, BED ALARM ARMED. ALL NEEDS ATTENDED. CALL LIGHT WITH IN REACH.
[2021-11-10 20:00] VITALS: BP 154/66
[2021-11-11] VITALS: BP 157/92
[2021-11-11] MEDS: IV 10% DEXTROSE 1,000 ML IV PRN ×2 (01:30→15:24)
[2021-11-11 04:00] VITALS: BP 165/79
[2021-11-11] MEDS: MORPHINE SULFATE INJ 2 MG/ML DISP.SYRIN IV PRN ×3 (04:27→22:14)
--- NOTE | 2021-11-11 04:58 | NUR ---
RN NOTES NOTED PT'S BP- 165/79 @ 0450; PRN MEDICATION GIVEN, PT. REPOSITION FOR COMFORT. PACKING ATTENDANT MADE AWARE. WILL CONTINUE TO MONITOR AND ASSESS THROUGHOUT THE SHIFT. Addendum: 11/11/21 at 0643 by SARABJIT DUNN RN BP RECHECK AT 0530 AND OBTAINED BP 156/67. PT. NOT IN DISTRESS, DENIES ANY PAIN, WILL CONTINUE TO MONITOR AND ASSESS THROUGHOUT THE SHIFT.
[2021-11-11] MEDS: hydrALAZINE HCL IV 20 MG VIAL IV PRN (05:01)
[2021-11-11 06:49] LABS: CALCIUM, SERUM 8.5 mg/dL (8.5-10.1); CREATININE 3.1 mg/dL (0.6-1.3); MAGNESIUM 2.2 mg/dL (1.8-2.4); PHOSPHORUS 5.5 mg/dL (2.5-4.9)
[2021-11-11 06:59] LABS: BASOPHILS # (AUTO) 0.1 K/uL (0.0-0.2); BASOPHILS % (AUTO) 0.6 % (0.0-2.0); EOSINOPHILS % (AUTO) 6.5 % (0.0-6.0); HEMATOCRIT 27 % (33-45); HEMOGLOBIN 8.8 g/dL (11.5-14.8); LYMPHOCYTES # (AUTO) 3.8 K/uL (0.8-4.8); LYMPHOCYTES % (AUTO) 23.3 % (20.0-44.0); MEAN CORPUSCULAR HGB CONC 32 g/dl (31.0-36.0); MEAN CORPUSCULAR VOLUME 96 fL (82-100); MONOCYTES # (AUTO) 2.1 K/uL (0.1-1.30); MONOCYTES % (AUTO) 12.7 % (2.0-12.0); NEUTROPHILS # (AUTO) 9.2 K/uL (1.8-8.9); NEUTROPHILS % (AUTO) 56.9 % (43.0-81.0); PLATELET COUNT (AUTO) 638 K/uL (150-450); RED BLOOD CELL COUNT(AUTO) 2.83 MIL/uL (4.0-5.2); WHITE BLOOD COUNT (AUTO) 16.2 K/uL (4.3-11.0)
--- NOTE | 2021-11-11 07:08 | NUR ---
RN CLOSING NOTES PATIENT STILL ON BED, ALERT, AWAKE, RESPIRATORY EVEN AND UNLABORED, WITH MECHANICAL VENTILATOR WITH FIO2 30%, TV 300, PEEP 5, NO SOB NOTED, DENIES PAIN, NO S/S OF DISTRESS NOTED, REMAIN AFEBRILE. RESIDENT NOTED WITH JANET MIDLINE PATENT, INTACT AND FLUSHED WITH NS, NO INFILTRATION NOTED IN SITE. WITH LEFT UPPER CHEST PERMA CATH FOR HD. GTUBE INPLACED BUT CURRENT OCCLUDED. RUNNING ON D10 1L @ 75CC/HR TOLERATED WELL. BED IN LOWEST POSITION, LOCKED, BED ALARM ARMED. ALL NEEDS ATTENDED. CALL LIGHT WITH IN REACH. ENDORSED TO NEXT SHIFT
--- NOTE | 2021-11-11 07:35 | NUR ---
RN OPENING NOTE PATIENT RECEIVED IN BED, RESTING. PATIENT ON MECHANICAL VENTILATOR AT 30 FIO2. TELE MONITOR ON, SINUS RHYTHM. G TUBE IN PLACE, NO FEEDING RUNNING AT THIS TIME. LEFT UPPER CHEST PERMACATH AND RIGHT UPPER ARM MIDLINE WITH D10 RUNNING AT 75 CC/HR, PATENT WITH NO SIGNS OF INFILTRATION. BED LOCKED AND IN LOWEST POSITION, CALL LIGHT WITHIN REACH, 3 SIDE RAILS UP. ALL SAFETY MEASURES IMPLEMENTED. WILL CONTINUE TO MONITOR.
[2021-11-11 08:00] VITALS: BP 134/54
[2021-11-11] MEDS: BLOOD SUGAR DIAGNOSTIC 1 EACH STRIP VI SCH ×4 (08:00→21:55)
[2021-11-11] MEDS: MEROPENEM 500 MG in IV NS 0.9% 50 ML IV SCH ×2 (08:31→21:55)
[2021-11-11] MEDS: DAKINS QUARTER STRENGTH (0.125%) 480 ML BOTTLE TOP SCH (08:32)
[2021-11-11] MEDS: MUPIROCIN OINT 2% 22 GM TUBE NS SCH ×2 (08:32→21:58)
[2021-11-11 12:00] VITALS: BP 133/63
[2021-11-11 16:00] VITALS: BP 167/75
[2021-11-11] MEDS ORDERED: ACETAMINOPHEN 650 MG/20.3 ML UDC JT PRN (16:00)
[2021-11-11] MEDS ORDERED: IPRATROPIUM NEB FS 0.5 MG/2.5 ML AMPUL.NEB NEB PRN (16:30)
[2021-11-11] MEDS ORDERED: LIDOCAINE 5% OINT 35.44 GM TUBE TP PRN (17:00)
[2021-11-11] MEDS ORDERED: ALBUTEROL FS 2.5 MG/3 ML VIAL.NEB NEB PRN (17:00)
[2021-11-11] MEDS ORDERED: VANCOMYCIN 1 GM in IV D5W 250 ML IV ONE (17:00)
--- NOTE | 2021-11-11 18:42 | NUR ---
RN CLOSING NOTE PATIENT REMAINS IN BED, RESTING. PATIENT ON MECHANICAL VENTILATOR AT 30 FIO2. TELE MONITOR ON, SINUS RHYTHM. G TUBE IN PLACE, NO FEEDING RUNNING AT THIS TIME. LEFT UPPER CHEST PERMACATH AND RIGHT UPPER ARM MIDLINE WITH D10 RUNNING AT 75 CC/HR, PATENT WITH NO SIGNS OF INFILTRATION. BED LOCKED AND IN LOWEST POSITION, CALL LIGHT WITHIN REACH, 3 SIDE RAILS UP. ALL SAFETY MEASURES IMPLEMENTED. ALL NEEDS ATTENDED DURING SHIFT. WILL ENDORSE TO TUBE TEST TECHNICIAN NURSE.
--- NOTE | 2021-11-11 19:47 | NUR ---
RN NOTE PATIENT ALERT AND ORIENTED X2. ON MECHANICAL VENTILATOR TOLERATING SETTINGS WELL. TELE MONITOR ON, SINUS RHYTHM. G TUBE IN PLACE, NO FEEDING RUNNING AT THIS TIME MD AWARE. NOTED WITH LEFT UPPER CHEST PERMACATH INTACT AND PATENT. ONGOING DIALYSIS AT THIS TIME, TOLERATING WELL. RIGHT UPPER ARM MIDLINE WITH D10 RUNNING AT 75 CC/HR, PATENT WITH NO SIGNS OF INFILTRATION. BED LOCKED AND IN LOWEST POSITION, CALL LIGHT WITHIN REACH. ALL NEEDS ANTICIPATED.
[2021-11-11 20:00] VITALS: BP 142/73
[2021-11-11] MEDS: hydrALAZINE HCL 10 MG TABLET JT SCH (21:00)
--- NOTE | 2021-11-11 21:00 | NUR ---
RN NOTE NON ADMIN HYDRALAZINE DUE TO GT-TUBE CLOGGED. REMAINS STABLE DURING DIALYSIS AT THIS TIME. WILL CONTINUE TO MONITOR.
--- NOTE | 2021-11-11 21:47 | NUR ---
RN NOTE PATIENT COMPLETED DIALYSIS AT THIS TIME. 2L REMOVED. NON-ADMIN VANCO DUE TO PATIENT RECEIVED IT TODAY @ 9364.
[2021-11-11] MEDS: CHLORHEXIDINE GLUCONATE 15 ML UDC MM SCH (21:55)
[2021-11-11] MEDS: *INSULIN REGULAR(HUMULIN R)HUM 100 UNIT/ML VIAL SQ PRN (21:56)
--- NOTE | 2021-11-11 22:30 | NUR ---
RN NOTE RECHECKED BLOOD PRESSURE POST DIALYSIS, BP 155/40. WILL CONTINUE TO MONITOR.
[2021-11-12] VITALS: BP 186/58
[2021-11-12] MEDS: hydrALAZINE HCL IV 20 MG VIAL IV PRN ×3 (00:02→15:04)
[2021-11-12] MEDS: MORPHINE SULFATE INJ 2 MG/ML DISP.SYRIN IV PRN ×5 (02:16→22:22)
[2021-11-12 04:00] VITALS: BP 156/75
[2021-11-12] MEDS: IV 10% DEXTROSE 1,000 ML IV PRN ×2 (04:10→21:44)
[2021-11-12] MEDS: hydrALAZINE HCL 10 MG TABLET JT SCH ×3 (05:00→20:26)
[2021-11-12 06:20] LABS: BASOPHILS % (AUTO) 0.3 % (0.0-2.0); EOSINOPHILS % (AUTO) 6.8 % (0.0-6.0); HEMATOCRIT 27 % (33-45); HEMOGLOBIN 8.7 g/dL (11.5-14.8); LYMPHOCYTES # (AUTO) 2.4 K/uL (0.8-4.8); LYMPHOCYTES % (AUTO) 16.4 % (20.0-44.0); MEAN CORPUSCULAR HGB CONC 32 g/dl (31.0-36.0); MEAN CORPUSCULAR VOLUME 95 fL (82-100); MONOCYTES # (AUTO) 1.6 K/uL (0.1-1.30); MONOCYTES % (AUTO) 10.9 % (2.0-12.0); NEUTROPHILS # (AUTO) 9.5 K/uL (1.8-8.9); NEUTROPHILS % (AUTO) 65.6 % (43.0-81.0); PLATELET COUNT (AUTO) 580 K/uL (150-450); RED BLOOD CELL COUNT(AUTO) 2.83 MIL/uL (4.0-5.2); WHITE BLOOD COUNT (AUTO) 14.5 K/uL (4.3-11.0)
[2021-11-12 06:31] LABS: CALCIUM, SERUM 8.7 mg/dL (8.5-10.1); CREATININE 1.8 mg/dL (0.6-1.3); PHOSPHORUS 3.1 mg/dL (2.5-4.9); POTASSIUM 3.3 mmol/L (3.5-5.1)
--- NOTE | 2021-11-12 06:51 | NUR ---
RN NOTE PATIENT ALERT AND ORIENTED X2. ON MECHANICAL VENTILATOR TOLERATING SETTINGS WELL. TELE MONITOR ON, SINUS RHYTHM. G TUBE IN PLACE, CLOGGED. FOR G-TUBE REINSERTION. NOTED WITH LEFT UPPER CHEST PERMACATH INTACT AND PATENT. RIGHT UPPER ARM MIDLINE WITH D10 RUNNING AT 75 CC/HR, PATENT WITH NO SIGNS OF INFILTRATION. TURNED AND REPOSITIONED. ALL NEEDS ATTENDED PROMPTLY. BED LOCKED AND IN LOWEST POSITION, CALL LIGHT WITHIN REACH. WILL ENDORSE TO AM SHIFT.
--- NOTE | 2021-11-12 07:32 | NUR ---
RN OPENING NOTE PATIENT RECEIVED IN BED, RESTING. PATIENT ON MECHANICAL VENTILATOR AT 30 FIO2. TELE MONITOR ON, SINUS RHYTHM. G TUBE IN PLACE, NO FEEDING RUNNING AT THIS TIME. LEFT UPPER CHEST PERMACATH AND RIGHT UPPER ARM MIDLINE WITH D10 RUNNING AT 75 CC/HR, PATENT WITH NO SIGNS OF INFILTRATION. NO COMPLAINTS OF PAIN OR SOB BED LOCKED AND IN LOWEST POSITION, CALL LIGHT WITHIN REACH, 3 SIDE RAILS UP. ALL SAFETY MEASURES IMPLEMENTED.
[2021-11-12] MEDS: BLOOD SUGAR DIAGNOSTIC 1 EACH STRIP VI SCH ×4 (07:37→21:37)
[2021-11-12 08:00] VITALS: BP 152/51
[2021-11-12] MEDS: MEROPENEM 500 MG in IV NS 0.9% 50 ML IV SCH ×2 (08:14→20:24)
[2021-11-12] MEDS: CHLORHEXIDINE GLUCONATE 15 ML UDC MM SCH ×2 (08:14→20:26)
[2021-11-12] MEDS: DAKINS QUARTER STRENGTH (0.125%) 480 ML BOTTLE TOP SCH (08:22)
[2021-11-12] MEDS: MUPIROCIN OINT 2% 22 GM TUBE NS SCH ×2 (08:22→20:26)
[2021-11-12] MEDS: PANTOPRAZOLE 40 MG/PACK PACK JT SCH (08:37)
--- NOTE | 2021-11-12 08:38 | NUR ---
RN NOTE PATIENTS NG TUBE CLOGGED, PENDING NEW PLACEMENT, HELD JT AM MEDICATION PROTONIX
[2021-11-12] MEDS ORDERED: Medication Not On Formulary EA (Cran/Vitc/Mannose/Inulin/Brom (Uti-Stat Liquid) 3,875 MG JT SCH (09:00)
[2021-11-12] MEDS ORDERED: Medication Not On Formulary EA (Cranberry Extract (Cranberry) 425 MG) JT SCH (09:00)
[2021-11-12] MEDS ORDERED: POTASSIUM CL. PREMIX PERIPHER. 50 ML IV SCH (10:00)
[2021-11-12] MEDS: DEXTROSE 50%-WATER 50 ML DISP.SYRIN IV PRN ×2 (11:36→21:29)
[2021-11-12 12:00] VITALS: BP 140/52
[2021-11-12 16:00] VITALS: BP 180/80
[2021-11-12] MEDS ORDERED: DIATR MEGLU/DIATRIZOATE SODIUM 30 ML BOTTLE (GASTROGRAPHIN) ONE (16:56)
--- NOTE | 2021-11-12 18:34 | NUR ---
TOBACCO CHECKOUT CLERK CLOSING NOTE PATIENT IS IN BED WITH MECHANICAL VENTILATION AT 30FIO2 AND O2 SAT OF 100%. PATIENT HAS A PERMCATH IN THE L UPPER CHEST AND A JANET MIDLINE IN PLACE INTACT AND PATENT. ALL IV MEDICATIONS WERE GIVEN THROUGH OUT SHIFT, COMPLETE LINEN AND WOUND CARE PERFORMED. SAFETY MEASURES IN PACE, BED IN LOWEST POSITION, CALL LIGHT WITHIN REACH, SIDE RAILS UP X 2. WILL ENDORSE TO NIGHT NURSE FOR YECENIA.
[2021-11-12 20:00] VITALS: BP 142/62
--- NOTE | 2021-11-12 20:27 | NUR ---
RN NOTE PT RECEIVED IN BED SLEEPING. PT IS TRACH/VENT WITH SETTING AT P#7, AC:18, TV: 300, FIO2:30, AND PEEP 5. PT IS ALERT AND ORIENTED X2. ON TURKEY EGG GATHERER SHOWING NSR. SACRAL WOUND NOTED. PER NOTES AND DAY SHIFT RN ENDORSEMENT, JT IS CLOGGED AND UNABLE TO ADMINISTER ANY MEDICATIONS. APRESOLINE HELD. IV ACCESS NOTED ON RIGHT UPPER ARM MIDLINE. LINE FLUSHED, PATENT, AND INTACT WITH NO SIGNS OF INFILTRATION. LEFT UPPER CHEST PERMACATH NOTED. ALL SAFETY MEASURES IMPLEMENTED. CALL LIGHT WITHIN REACH. BED ALARM ON. BED LOCKED AND IN LOWEST POSITION. SIDE RAILS UP. WILL CONTINUE TO MONITOR AND ASSESS FOR ANY CHANGES DURING SHIFT.
--- NOTE | 2021-11-12 21:29 | NUR ---
RN NOTE PT BLOOD SUGAR ON INITIAL CHECK WAS 18 AND 22 AFTER SECOND CHECK. D5O ADMINISTERED VIA IVP. WILL RE-ASSESS IN 30 MINUTES.
--- NOTE | 2021-11-12 21:59 | NUR ---
RN NOTE BS NOW 121 AFTER ADMINISTRATION OF D50. WILL CONTINUE TO MONITOR.
[2021-11-13] VITALS: BP 170/82
[2021-11-13] MEDS ORDERED: EPOETIN ALFA (4000 UNIT) 4,000 UNIT/ML VIAL IV SCH (00:30)
[2021-11-13] MEDS: hydrALAZINE HCL IV 20 MG VIAL IV PRN (00:50)
--- NOTE | 2021-11-13 00:51 | NUR ---
RN NOTE BLOOD PRESSURE 170/82. APRESOLINE 10MG/0.5ML ADMINISTERED VIA IVP. WILL RE-ASSESS.
[2021-11-13 04:00] VITALS: BP 152/81
[2021-11-13] MEDS: hydrALAZINE HCL 10 MG TABLET JT SCH ×3 (05:00→20:09)
[2021-11-13] MEDS: MORPHINE SULFATE INJ 2 MG/ML DISP.SYRIN IV PRN ×3 (06:19→21:11)
--- NOTE | 2021-11-13 06:37 | NUR ---
RN NOTE NO CHANGES IN PT CONDITION DURING SHIFT. PT IS TRACH/VENT WITH SETTING AT P#7, AC:18, TV: 300, FIO2:30, AND PEEP 5. JT CURRENTLY CLOGGED, AWAITING PLACEMENT. APRESOLINE HELD. IV ACCESS NOTED ON RIGHT UPPER ARM MIDLINE. LINE FLUSHED, PATENT, AND INTACT WITH NO SIGNS OF INFILTRATION. LEFT UPPER CHEST PERMACATH NOTED. ALL DUE MEDS GIVEN ORDERED. PT KEPT CLEAN AND COMFORTABLE. ALL SAFETY MEASURES IMPLEMENTED. CALL LIGHT WITHIN REACH. BED ALARM ON. BED LOCKED AND IN LOWEST POSITION. SIDE RAILS UP. WILL ENDORSE TO MORNING SHIFT RN FOR YECENIA.
--- NOTE | 2021-11-13 07:10 | NUR ---
RN OPENING NOTE RECEIVED PATIENT IN BED. A/O X 2-3. ABLE TO MAKE NEEDS KNOWN. ON [facility] VENT WITH SETTINGS AC 18 TV 300 FI02 30% PEEP 5. TELE READING SHOWS SR 60's. JT IS CURRENTLY CLOGGED, SUSAN ANTONIO WAS AWARE, AWAITING FOR PLACEMENT. L UPPER CHEST PERMACATH C/D/I. JANET MIDLINE, D10 RUNNING AT 75 ML/HR, INTACT AND PATENT. SAFETY MEASURES MAINTAINED. BED IN LOWEST POSITON, BRAKES LOCKED,. SIDE RAILS UP X2. CALL LIGHT WITHIN REACH. WILL CONTINUE PLAN OF CARE.
[2021-11-13 08:00] VITALS: BP 142/71
[2021-11-13] MEDS: PANTOPRAZOLE 40 MG/PACK PACK JT SCH (09:00)
[2021-11-13] MEDS: MEROPENEM 500 MG in IV NS 0.9% 50 ML IV SCH ×2 (09:02→20:08)
[2021-11-13] MEDS: CHLORHEXIDINE GLUCONATE 15 ML UDC MM SCH ×2 (09:02→20:09)
[2021-11-13] MEDS: DAKINS QUARTER STRENGTH (0.125%) 480 ML BOTTLE TOP SCH (09:07)
[2021-11-13] MEDS: MUPIROCIN OINT 2% 22 GM TUBE NS SCH ×2 (09:08→20:08)
[2021-11-13] MEDS: BLOOD SUGAR DIAGNOSTIC 1 EACH STRIP VI SCH ×4 (09:08→21:22)
[2021-11-13] MEDS: DEXTROSE 50%-WATER 50 ML DISP.SYRIN IV PRN (11:33)
[2021-11-13] MEDS: IV 10% DEXTROSE 1,000 ML IV PRN (11:34)
--- NOTE | 2021-11-13 11:35 | NUR ---
RN NOTE BLOOD SUGAR CHECKED, 54. RECHECKED AGAIN, 51. ADMINISTER D50 IV. WILL CONTINUE TO MONITOR THROUGHOUT THE SHIFT,
[2021-11-13 12:00] VITALS: BP 160/72
--- NOTE | 2021-11-13 12:23 | NUR ---
RN NOTE BLOOD SUGAR RESULT AFTER D50 IV ADMINISTRATION, 155.
[2021-11-13 16:00] VITALS: BP 113/76
--- NOTE | 2021-11-13 17:25 | NUR ---
RN NOTE COVID RAPID TEST WAS COLLECTED AND SENT TO THE LAB
--- NOTE | 2021-11-13 18:57 | NUR ---
RN CLOSING NOTE PATIENT RESTING IN BED. A/O X 2-3. ON [facility] VENT WITH SETTINGS AC 18 TV 300 FI02 30% PEEP 5. TELE READING SHOWS SR 70s. PER BRENNA HUANG NP, FEEDING CAN BE RESUMED. L UPPER CHEST PERMACATH C/D/I. JANET MIDLINE, D10 RUNNING AT 75 ML/HR, INTACT AND PATENT. WOUND TREATMENT ORDERED. SAFETY MEASURES MAINTAINED. BED IN LOWEST POSITION, BRAKES LOCKED,. SIDE RAILS UP X2. KEPT CALL LIGHT WITHIN REACH. WILL ENDORSE CONTINUITY OF CARE TO ONCOMING SHIFT.
--- NOTE | 2021-11-13 19:39 | NUR ---
RN NOTE PER ENDORSEMENT FROM DAY SHIFT NURSE AND INTERNATIONAL TAX MANAGER, DR. HUANG ORDERED TO RESUME TUBE FEEDING VIA OWEN CATHETER, CONTACTED BLACKSMITH ASSISTANT BETTYE Keyes NP TO CLARIFY ORDER FOR MEDICATION ADMINISTRATION VIA OWEN CATHETER. PER DUSTIN SANDOVAL TO ADMINISTRATION AND RESUME TUBE FEEDING. ORDER NOTED AND CARRIED OUT.
--- NOTE | 2021-11-13 19:50 | NUR ---
RN OPENING NOTE RECEIVED PATIENT RESTING IN BED. A/O X 2-3. ON [facility] VENT WITH SETTINGS AC 18 TV 300 FI02 30% PEEP 5. TELE READING SHOWS SR 80s.L UPPER CHEST PERMACATH C/D/I. JANET MIDLINE, D10 RUNNING AT 75 ML/HR, PATENT AND INTACT. SAFETY MEASURES TAKEN, BED IN LOWEST POSITION, BRAKES LOCKED,. SIDE RAILS UP X2. KEPT CALL LIGHT WITHIN REACH.
--- NOTE | 2021-11-13 19:52 | NUR ---
RN NOTE, PER BETTYE Keyes NP , HOLD APRESOLINE IF SYSTOLIC BP<100. ORDER NOTED AND CARRIED OUT.
[2021-11-13 20:00] VITALS: BP 172/80
[2021-11-13] MEDS: NEPRO 1,000 ML BOTTLE GT PRN (20:55)
[2021-11-14] VITALS: BP 138/84
[2021-11-14] MEDS: ONDANSETRON HCL/PF 4 MG/2 ML VIAL IVP PRN ×2 (00:37→12:24)
--- NOTE | 2021-11-14 00:47 | NUR ---
RN NOTE SPOKE WITH BETTYE Keyes IN [facility] REGARDING PATIENT THROWING UP, GREEN EMESIS WITH THICK SECRETIONS, AFTER INITIATION OF FEEDING. PER BETTYE Keyes, SKATE BOARDER HOLD FEEDING FOR NOW. ADMINISTERED ZOFRAN IVP, WILL CONTINUE TO MONITOR AND REASSESS FOR ANY CHANGES.
[2021-11-14] MEDS: IV 10% DEXTROSE 1,000 ML IV PRN ×2 (01:49→16:03)
[2021-11-14] MEDS: MORPHINE SULFATE INJ 2 MG/ML DISP.SYRIN IV PRN ×4 (03:14→20:55)
[2021-11-14 04:00] VITALS: BP 197/75
[2021-11-14] MEDS: hydrALAZINE HCL 10 MG TABLET JT SCH ×3 (04:03→20:54)
--- NOTE | 2021-11-14 05:03 | NUR ---
NANDINI 128/63 HR 82 - AFTER ADMINISTRATION OF HYDRALAZINE Addendum: 11/14/21 at 0646 by Sierra Emerson RN RAJNI HAWKINS
--- NOTE | 2021-11-14 06:12 | NUR ---
RN CLOSING NOTE RECEIVED PATIENT RESTING IN BED. A/O X 2-3. ON [facility] VENT WITH SETTINGS AC 18 TV 300 FI02 30% PEEP 5. TELE READING SHOWS SR , HR 85 .L UPPER CHEST PERMACATH C/D/I. JANET MIDLINE, D10 RUNNING AT 75 ML/HR,PATENT AND INTACT. FEEDING STOPPED PER BETTYE Keyes NP DUE TO PATIENT FEELING NAUSEOUS AND EMESIS PRESENT. SAFETY MEASURES TAKEN, BED IN LOWEST POSITION, BRAKES LOCKED,. SIDE RAILS UP X3. KEPT CALL LIGHT WITHIN REACH. WILL ENDORSE TO ONCOMING MORNING NURSE.
--- NOTE | 2021-11-14 07:35 | NUR ---
RN OPENING NOTES Patient seen comfortably lying in bed, no SOB, no apparent distress noted, breathing even and unlabored, denies any pain or discomfort at this time, no grimacing. Call light left within reach, safety precautions in place, brakes locked, side rails up X 2, will monitor closely for any changes.
[2021-11-14 08:00] VITALS: BP 150/78
[2021-11-14] MEDS: BLOOD SUGAR DIAGNOSTIC 1 EACH STRIP VI SCH ×4 (08:06→22:00)
[2021-11-14] MEDS: MEROPENEM 500 MG in IV NS 0.9% 50 ML IV SCH ×2 (08:18→20:49)
[2021-11-14] MEDS: CHLORHEXIDINE GLUCONATE 15 ML UDC MM SCH ×2 (08:18→20:56)
[2021-11-14] MEDS: PANTOPRAZOLE 40 MG/PACK PACK JT SCH (08:18)
[2021-11-14] MEDS: DAKINS QUARTER STRENGTH (0.125%) 480 ML BOTTLE TOP SCH (08:41)
[2021-11-14] MEDS: MUPIROCIN OINT 2% 22 GM TUBE NS SCH ×2 (08:42→22:33)
[2021-11-14] MEDS: hydrALAZINE HCL IV 20 MG VIAL IV PRN (11:29)
[2021-11-14] MEDS: PANTOPRAZOLE 40 MG VIAL IV SCH ×2 (11:29→20:50)
[2021-11-14 12:00] VITALS: BP 144/81
--- NOTE | 2021-11-14 16:45 | NUR ---
Patient has an order for angiojet thrombolysis, called Alpa () to obtain consent for the procedure, health teaching provided, explained risks and benefits, sister agreed to do the procedure, another RN witnessed and signed procedure's consent. Consent filed in patient's chart.
[2021-11-14 17:00] VITALS: BP 134/79
--- NOTE | 2021-11-14 18:42 | NUR ---
RN CLOSING NOTES Patient lying in bed, AO X 2-3, able to mouth words in Kyrgyz, breathing even and unlabored, no SOB, no dizziness, no palpitations, no apparent distress noted. All medications given per MD order, tolerating well. No s/s of hypo/hyperglycemia at this time, no change in level of consciousness no tremors. Pain medication given as needed per MD order when non pharmacological measures ineffective. All needs attended, kept clean and dry, safety precautions in place, brakes locked, side rails up X 2, call light left within reach, will endorse to next shift for continuity of care.
[2021-11-14 20:00] VITALS: BP 156/47
[2021-11-14] MEDS: *INSULIN REGULAR(HUMULIN R)HUM 100 UNIT/ML VIAL SQ PRN (23:39)
[2021-11-15] VITALS: BP 169/77
[2021-11-15 04:00] VITALS: BP 166/85
[2021-11-15] MEDS: IV 10% DEXTROSE 1,000 ML IV PRN (04:09)
[2021-11-15] MEDS: hydrALAZINE HCL 10 MG TABLET JT SCH (05:34)
--- NOTE | 2021-11-15 06:42 | NUR ---
RAJNI nava Alert and oriented x 2-3. Able to mouthwords needs. No distress noted. Breathing even and unlabored. Vent setting well tolerated. In bed resting comfortably. Turned and reposition every two hours. No significant change of condition. Vital signs wnl. Kept clean and dry. Will endorse to next shift for continuity of care.
[2021-11-15] MEDS: BLOOD SUGAR DIAGNOSTIC 1 EACH STRIP VI SCH ×4 (07:59→23:09)
[2021-11-15 08:00] VITALS: BP 109/43
--- NOTE | 2021-11-15 08:00 | NUR ---
RN OPENING NOTE PT AWAKE IN BED RESTING. ON MECHANICAL VENT, PORTEX #7 AC 18 TV 350 FIO2 30% PEEP 5. O2 SAT >95% AND NO RESPIRATORY DISTRESS. ON DEFENSE TRAVEL ADMINISTRATOR. NO EDEMA PRESENT. DIAPER PRESENT. BEDBOUND. SKIN ISSUES PRESENT AND WOUND CARE TO BE APPLIED. J TUBE PRESENT WITH NEPHRO RUNNING AT 55 ML/HR. JANET MIDLINE PRESENT WITH D10 RUNNING AT 75 ML/HR. LABS AND ORDERS REVIEWED. SAFETY MEASURES IN PLACE. SIDE RAILS RAISED. BED LOWERED. CALL LIGHT WITHIN REACH. WILL CONTINUE TO MONITOR.
[2021-11-15] MEDS: PANTOPRAZOLE 40 MG VIAL IV SCH (08:04)
[2021-11-15] MEDS: DAKINS QUARTER STRENGTH (0.125%) 480 ML BOTTLE TOP SCH (08:04)
[2021-11-15] MEDS: MEROPENEM 500 MG in IV NS 0.9% 50 ML IV SCH ×2 (08:04→22:34)
[2021-11-15] MEDS: CHLORHEXIDINE GLUCONATE 15 ML UDC MM SCH ×2 (08:08→23:05)
[2021-11-15] MEDS ORDERED: VANC500F2 IV (09:24)
[2021-11-15] MEDS ORDERED: HYDR-4076 PO (09:24)
[2021-11-15] MEDS ORDERED: MERO500P IV (09:24)
[2021-11-15] MEDS: HYDROCODONE/APAP 5/325MG TABLET PO PRN (10:00)
[2021-11-15] MEDS: hydrALAZINE HCL 25 MG TABLET PO SCH ×2 (10:02→23:09)
[2021-11-15 12:29] VITALS: BP 106/83
[2021-11-15 16:00] VITALS: BP 138/56
--- NOTE | 2021-11-15 16:42 | NUR ---
RN NOTE CALLED FACILITY TWICE TO GIVE REPORT TO PILAR FOR YECENIA. NO RESPONSE AND MESSAGE LEFT TO CALL BACK TO SO. WILL CONTINUE TO MONITOR.
--- NOTE | 2021-11-15 17:00 | NUR ---
RN NOTE REPORT GIVEN TO GERDA FOR YECENIA.
--- NOTE | 2021-11-15 19:01 | NUR ---
RN NOTE ISSUES WITH R ARM BLOOD PRESSURE. AUTOMATIC READING OF 170'S. MANUAL BP OF 112. LEG BP OF 100'S.
--- NOTE | 2021-11-15 19:34 | NUR ---
PUTTIER NOTE PT DISCHARGED TO FACILITY [facility]. REPORT GIVEN TO RN TAR BOILER. MED RECON DONE AND GIVEN TO EMT. PT REFUSED SKIN ASSSESSMENT PRIOR TO D/C. WAVING HAND AWAY FROM CAMERA. IV LINE REMOVED. ID BANDS REMOVED. EXITCARE EDUCATION DONE AND PROVIDED TO PT. PT TRANSPORTED VIA AMBULANCE WITH EMT AND RT.
[2021-11-15 20:30] VITALS: BP 152/68
--- NOTE | 2021-11-15 20:30 | NUR ---
TELERN RECEIVED VIA [place] [facility] A 51 Y/O FEMALE PER AIRCRAFT GENERAL REPAIR MECHANIC WAS SENT BACK FROM FACILITY SEC TO ELEVATED BP AND WILL TAKE PATIENT IN THE MORNING INSTEAD. PER CHURCH COMMUNICATIONS ADMINISTRATOR PATIENT WAS DISCHARGED FROM [facility] AND TO CONTINUE PREVIOUS CARE. PATIENT REINSTATED IN COMPUTER. NOTIFIED FRESH FOODS CLERK EPIC AND TO CONTINUE PREVIOUS ORDER FOR NOW. PAGED RT.
--- NOTE | 2021-11-15 20:40 | NUR ---
TELERN PLACED TO BED REPOSITIONED FOR COMFORT. CONNECTED TO VENT BY RT JUVENTINO 7 VENT SETTINGS OF AC 18, FI02 30%, TV OF 300 , PEEP OF 5. NO RESPIRATORY DISTRESS. OPENS EYES, RESPONSES TO DEEP PAIN FACIAL GRIMACES. ABLE TO MOVE UPPER EXTREMITIES, LEFT AKA STUMP WITH DRESSING D/I. SACRAL WOUND DRESSING D/I AND RIGHT FOREARM DRESSING D/I. JT CLAMP NEED TO START FEEDING.
--- NOTE | 2021-11-15 22:15 | NUR ---
TELERN BS WAS 42. APPLE JUICE ADMINISTERED VIA JT. IV ACCESS N/A AT THIS TIME CN TO START IV
--- NOTE | 2021-11-15 22:30 | NUR ---
RN PEDIATRIC STARTED 24 GAUGE ON LEFT HAND BY CN WITH GOOD BLOOD RETURN. STARTED MERREM IV
--- NOTE | 2021-11-15 22:55 | NUR ---
TELERN RECHECKED BLOOD SUGAR WAS 91 THIS TIME RECHECKED AGAIN WAS 89. JT FEEDINGS CONTINUED NEPHRO AT 55 CC/HR. HOB AT 45 DEGREES TO PREVENT ASPIRATION.
[2021-11-15] MEDS: PANTOPRAZOLE 40 MG/PACK PACK GT SCH (23:05)
[2021-11-16] VITALS (10 sets, daily range): BP systolic 122–174; BP diastolic 54–83
[2021-11-16] MEDS: MORPHINE SULFATE INJ 2 MG/ML DISP.SYRIN IV PRN ×2 (01:58→19:40)
--- NOTE | 2021-11-16 01:58 | NUR ---
MS URBAN NOTES PATIENT COMPLAINED OF PAIN. ADMINISTERED MORPHINE 2MG/ML IV PUSH Q4H PRN ORDERED BY HOSPITALIST. Addendum: 11/16/21 at 0254 by EULA SIGALA RN JOSE LAU
[2021-11-16] MEDS: hydrALAZINE HCL IV 20 MG VIAL IV PRN (04:55)
--- NOTE | 2021-11-16 04:56 | NUR ---
INDUSTRIAL TECHNICIAN NOTES PATIENT HAD BP OF 185/86. PATIENT IN NO ACUTE DISTRESS. ADMINISTERED HYDRALAZINE 10MG/ML IV PUSH PRN ORDERED BY HOSPITALIST.
--- NOTE | 2021-11-16 06:30 | NUR ---
TELERN REMAINS SR ON THE MONITOR. BP NOW IS 162/65.
--- NOTE | 2021-11-16 07:00 | NUR ---
TELERN TOLERATED JT FEEDINGS WELL. NO RESIDUALS. HOB TO 45 DEGREES AT ALL TIMES.
[2021-11-16] MEDS ORDERED: hydrALAZINE HCL IV 20 MG VIAL IV PRN (07:05)
[2021-11-16] MEDS: BLOOD SUGAR DIAGNOSTIC 1 EACH STRIP VI SCH ×4 (07:33→22:51)
--- NOTE | 2021-11-16 07:40 | NUR ---
RN OPENING NOTE PT AWAKE IN BED RESTING. ON MECHANICAL VENT, PORTEX #7 WITH THE FOLLOWING SETTINGS: AC 18 TV 350 FIO2 30% PEEP 5. O2 SAT 99% AND NO RESPIRATORY DISTRESS NOTED. ON MISSILE TECHNICIAN SR @95. WITH J TUBE PRESENT WITH NEPHRO RUNNING AT 55 ML/HR. HOB ELATED AT ALL TIMES, ASPIRATION PRECAUTION OBSERVED AT ALL TIMES. IV ACCESS ON LEFT HAND #24 SL INTACT. SAFETY MEASURES IN PLACE. SIDE RAILS UP X2. BED LOCKED AND IN LOWEST POSITION. CALL LIGHT WITHIN REACH. WILL CONTINUE TO MONITOR.
[2021-11-16] MEDS: hydrALAZINE HCL 25 MG TABLET PO SCH ×2 (08:56→20:46)
[2021-11-16] MEDS: PANTOPRAZOLE 40 MG/PACK PACK GT SCH ×2 (08:56→20:45)
[2021-11-16] MEDS: CHLORHEXIDINE GLUCONATE 15 ML UDC MM SCH ×2 (08:58→20:35)
[2021-11-16] MEDS: MEROPENEM 500 MG in IV NS 0.9% 50 ML IV SCH ×2 (08:59→20:46)
[2021-11-16] MEDS: DAKINS QUARTER STRENGTH (0.125%) 480 ML BOTTLE TOP SCH (09:02)
--- NOTE | 2021-11-16 18:50 | NUR ---
PARKING METER SERVICER CLOSING NOTE PATIENT IN BED RESTING. A/O X3. WITH TRACH PORTEX #7 ON MECHANICAL VENT WITH THE FOLLOWING SETTINGS: AC 18 TV 350 FIO2 30% PEEP 5. O2 SAT 99%, NO RESPIRATORY DISTRESS NOTED. ON MISSILE INSPECTOR SR @90. WITH J TUBE INTACT AND PATENT WITH TUBE FEEDING OF NEPRO RUNNING AT 55 ML/HR. HOB ELATED AT ALL TIMES, ASPIRATION PRECAUTION OBSERVED AT ALL TIMES. IV ACCESS ON LEFT HAND #24 SL INTACT. ALL DUE MEDS GIVEN TOLERATED WELL. WOUND CARE DONE, TURNED AND REPOSITIONED Q2HRS. SAFETY MEASURES IN PLACE. SIDE RAILS UP X2. BED LOCKED AND IN LOWEST POSITION. CALL LIGHT WITHIN REACH.WILL ENDORSE TO NEXT SHIFT.
--- NOTE | 2021-11-16 19:20 | NUR ---
PRODUCTION CHECKER OPENING NOTES PT AWAKE IN BED RESTING. ON MECHANICAL VENT, PORTEX #7 WITH THE FOLLOWING SETTINGS: AC 18 TV 350 FIO2 30% PEEP 5. O2 SAT 99% AND NO RESPIRATORY DISTRESS NOTED. ON TELE MONITOR SR @84 BPM. WITH J TUBE PRESENT WITH NEPHRO RUNNING AT 55 ML/HR. HOB ELATED AT ALL TIMES, ASPIRATION PRECAUTION OBSERVED AT ALL TIMES. IV ACCESS ON LEFT HAND #24 SL INTACT. SAFETY MEASURES IN PLACE. SIDE RAILS UP X2. BED LOCKED AND IN LOWEST POSITION. CALL LIGHT WITHIN REACH. WILL CONTINUE TO MONITOR PATIENT.
--- NOTE | 2021-11-16 19:41 | NUR ---
KEY CUTTER NOTES PATIENT COMPLAINED OF PAIN. ADMINISTERED MORPHINE 2MG/ML IV PUSH Q4H PRN ORDERED BY HOSPITALIST.
[2021-11-16] MEDS: HYDROCODONE/APAP 5/325MG TABLET PO PRN (22:10)
[2021-11-16] MEDS: NEPRO 1,000 ML BOTTLE GT PRN (22:11)
--- NOTE | 2021-11-16 22:11 | NUR ---
SUBPOENA SERVER NOTES PATIENT COMPLAINED OF PAIN. ADMINISTERED NORCO PRN ORDERED BY HOSPITALIST.
--- NOTE | 2021-11-16 22:51 | NUR ---
WARP TIER NOTES PATIENT BLOOD SUGAR 48 WITH PATIENT ASYMPTOMATIC. ADMINISTERED JUICE PER PROTOCOL. WILL RECHECK BLOOD SUGAR.
--- NOTE | 2021-11-16 23:45 | NUR ---
ROUTE RETURNER NOTES RECHECKED PATIENT BLOOD SUGAR 98. PATIENT SHOWS NO SIGNS AND SYMPTOMS OF HYPOGLYCEMIA. WILL CONTINUE TO MONITOR.
[2021-11-17] VITALS: BP 161/84
[2021-11-17] MEDS: MORPHINE SULFATE INJ 2 MG/ML DISP.SYRIN IV PRN ×2 (03:31→10:00)
--- NOTE | 2021-11-17 03:32 | NUR ---
BIOFUELS PROCESSING TECHNICIAN NOTES PATIENT COMPLAINED OF PAIN. ADMINISTERED MORPHINE 2MG/ML IV PUSH Q4H PRN ORDERED BY HOSPITALIST.
[2021-11-17 04:00] VITALS: BP 135/69
--- NOTE | 2021-11-17 06:41 | NUR ---
FRONT DESK SUPERVISOR CLOSING NOTES PT STILL AWAKE IN BED RESTING. ON MECHANICAL VENT, PORTEX #7 WITH THE FOLLOWING SETTINGS: AC 18 TV 350 FIO2 30% PEEP 5. O2 SAT 99% AND NO RESPIRATORY DISTRESS NOTED. ON TELE MONITOR SR @84 BPM. WITH J TUBE PRESENT WITH NEPHRO RUNNING AT 55 ML/HR. HOB ELATED AT ALL TIMES, ASPIRATION PRECAUTION OBSERVED AT ALL TIMES. IV ACCESS ON LEFT HAND #24 SL INTACT. SAFETY MEASURES IN PLACE. SIDE RAILS UP X2. BED LOCKED AND IN LOWEST POSITION. CALL LIGHT WITHIN REACH. WILL ENDORSE CONTINUITY OF CARE TO DAY SHIFT NURSE.
[2021-11-17] MEDS: BLOOD SUGAR DIAGNOSTIC 1 EACH STRIP VI SCH (06:45)
--- NOTE | 2021-11-17 07:54 | NUR ---
PARTS CATALOGER OPENING NOTE PT ASLEEP IN BED RESTING. ALERT AND ORIENTED X 3. ON MECHANICAL VENT, PORTEX #7 AC 18 TV 350 FIO2 30% PEEP 5. O2 SAT >95% AND NO RESPIRATORY DISTRESS. ON ANALYSIS ANALYST. NO EDEMA PRESENT. DIAPER PRESENT. BEDBOUND. SKIN ISSUES PRESENT AND WOUND CARE TO BE APPLIED. J TUBE PRESENT WITH NEPHRO RUNNING AT 55 ML/HR. JANET MIDLINE PRESENT WITH D10 RUNNING AT 75 ML/HR. LABS AND ORDERS REVIEWED. SAFETY MEASURES IN PLACE. SIDE RAILS RAISED. BED LOWERED. CALL LIGHT WITHIN REACH. WILL CONTINUE TO MONITOR.
[2021-11-17 08:51] VITALS: BP 120/68
[2021-11-17] MEDS: PANTOPRAZOLE 40 MG/PACK PACK GT SCH (08:51)
[2021-11-17] MEDS: MEROPENEM 500 MG in IV NS 0.9% 50 ML IV SCH (08:51)
[2021-11-17] MEDS: CHLORHEXIDINE GLUCONATE 15 ML UDC MM SCH (08:51)
[2021-11-17] MEDS: hydrALAZINE HCL 25 MG TABLET PO SCH (08:51)
[2021-11-17] MEDS: DAKINS QUARTER STRENGTH (0.125%) 480 ML BOTTLE TOP SCH (08:53)
--- NOTE | 2021-11-17 11:30 | NUR ---
TELE DISCHARGE NOTE PT WAS DISCHARGED TO [facility]. AMBULANCE ARRIVED WITH EMT AND RT AT 1109. PT IS ALERT AND ORIENTED X 3, ABLE TO MOUTH WORDS. NO S/SX OF DISTRESS NOTED. ALL BELONGINGS RETURNED, ALL DC FORMS SIGNED AND COPIES FILED IN CHART. ID BAND REMOVED. ALL VS STABLE FOR DISCHARGE. PT EXITED THE UNIT AT THIS TIME.
== END 2021-11-17 08:50 | DRG 951 ==
LOC: ER 22:35 → TELE1 11-06 02:57 → UNDODISIN 11-15 19:49 → TELE 11-15 20:30
PROVIDERS: ADMIT Student in an Organized Health Care Education/Training Program; ATTEND Nurse Practitioner Acute Care
PROC: 5A1955Z Respiratory Ventilation, Greater than 96 Consecutive Hours (ICD-10-PCS; principal; 2021-11-06)
PROC: 5A1D70Z Performance of Urinary Filtration, Intermittent, Less than 6 Hours Per Day (ICD-10-PCS; 2021-11-06)
PROC: 0W993ZZ Drainage of Right Pleural Cavity, Percutaneous Approach (ICD-10-PCS; 2021-11-06)
PROC: 05HB33Z Insertion of Infusion Device into Right Basilic Vein, Percutaneous Approach (ICD-10-PCS; 2021-11-06)
PROC: 0KBN0ZZ Excision of Right Hip Muscle, Open Approach (ICD-10-PCS; 2021-11-11)
PROC: 0KBP0ZZ Excision of Left Hip Muscle, Open Approach (ICD-10-PCS; 2021-11-11)
PROC: 0DJ08ZZ Inspection of Upper Intestinal Tract, Via Natural or Artificial Opening Endoscopic (ICD-10-PCS; 2021-11-12)
DX: J95.851 Ventilator associated pneumonia (principal); R65.20 Severe sepsis without septic shock; A41.9 Sepsis, unspecified organism; E43 Unspecified severe protein-calorie malnutrition; J96.10 Chronic respiratory failure, unspecified whether with hypoxia or hypercapnia; L89.154 Pressure ulcer of sacral region, stage 4; J90 Pleural effusion, not elsewhere classified; I12.0 Hypertensive chronic kidney disease with stage 5 chronic kidney disease or end stage renal disease; N18.6 End stage renal disease; E87.1 Hypo-osmolality and hyponatremia; E11.22 Type 2 diabetes mellitus with diabetic chronic kidney disease; E87.5 Hyperkalemia; E11.51 Type 2 diabetes mellitus with diabetic peripheral angiopathy without gangrene; Z20.822 Contact with and (suspected) exposure to COVID-19; Y84.8 Other medical procedures as the cause of abnormal reaction of the patient, or of later complication, without mention of misadventure at the time of the procedure; Y92.9 Unspecified place or not applicable; E11.43 Type 2 diabetes mellitus with diabetic autonomic (poly)neuropathy; K31.84 Gastroparesis; R13.10 Dysphagia, unspecified; K21.00 Gastro-esophageal reflux disease with esophagitis, without bleeding; Y95 Nosocomial condition; Z66 Do not resuscitate; Z91.048 Other nonmedicinal substance allergy status; Z99.11 Dependence on respirator [ventilator] status; D64.9 Anemia, unspecified; D75.839 Thrombocytosis, unspecified; I44.4 Left anterior fascicular block; Z99.2 Dependence on renal dialysis; Z89.612 Acquired absence of left leg above knee; J98.11 Atelectasis; Y83.3 Surgical operation with formation of external stoma as the cause of abnormal reaction of the patient, or of later complication, without mention of misadventure at the time of the procedure; Y92.10 Unspecified residential institution as the place of occurrence of the external cause; K94.13 Enterostomy malfunction
CPT/HCPCS: 31720; 36415; 43760; 71045-TC; 74018; 80048-TC; 80076-TC; 80202-TC; 82962-TC; 83605-TC; 83735-TC; 83880; 84100-TC; 84155-TC; 84295-TC; 84484-TC; 85025-TC; 85730-TC; 86706; 87040-TC; 87070-TC; 87075-TC; 87081-TC; 87102-TC; 87340; 88112-TC; 88305-TC; 88312-TC; 89051-TC; 90935-TC; 94002-TC; 94003-TC; 94760-TC; 94762-TC; 94799-TC; A6253; A6403; A7526; C9113; C9803; G0378; J0360; J0885; J1815; J1940; J2185; J2270; J2405; J2543; J2704; J3370; J3475; J3480; J3490; J7030; J7042; J7050; J7060; J7070; Q9963; U0003

== ENCOUNTER 2021-11-20 16:38 | Inpatient (IN) | payer MEDICAID ==
[~2021-11-20] VITALS: Ht 152.4 cm; Wt 56.7 kg
[~2021-11-20 16:38] MED LIST: ACET650S26 JT; CHLO473M5 MM; CRAN3875 JT; CRAN425C6 JT; HYDR-4076 PO; HYDR4TAB57 JT; INSU100V7 SQ; IPRA3AMP23 IH; LIDO35.4 TD; MERO500P IV; MINE105O TP; NUT.237L66 JT; PANT40SU2 JT; VANC500F2 IV; [UNRECOGNIZED DRUG - CODE] TD
--- NOTE | 2021-11-20 16:39 | NUR ---
BIBRA 102 FOR DESATURATING AT 79% AND SYNCOPAL EPISODE DURING DIALYSIS. DID NOT FINISH DIALYSIS. LCW PERMACATH; PATENT AND INTACT. A/OX2. ON VENT/TRACH TOLERATING SETTINGS WELL AT 94%: TV 300, FIOS 30%, PEEP 5. L AKA AND R BKA NOTED. WOUND TO RFA; NO ACTIVE BLEEDING NOTED. CONNECTED PT TO POX AND MONITOR.
--- NOTE | 2021-11-20 17:10 | NUR ---
RAC #20G S/L; PATENT AND INTACT. RECONCILIATION MACHINE OPERATOR AT PT'S BEDSIDE
--- NOTE | 2021-11-20 17:10 | NUR ---
RAC #20G S/L; PATENT AND INTACT. RELATIONSHIP CONSULTANT AT PT'S BEDSIDE
[2021-11-20 17:38] LABS: BASOPHILS # (AUTO) 0.1 K/uL (0.0-0.2); BASOPHILS % (AUTO) 0.6 % (0.0-2.0); EOSINOPHILS % (AUTO) 10.6 % (0.0-6.0); HEMATOCRIT 25 % (33-45); HEMOGLOBIN 7.9 g/dL (11.5-14.8); LYMPHOCYTES # (AUTO) 1.7 K/uL (0.8-4.8); LYMPHOCYTES % (AUTO) 8.8 % (20.0-44.0); MEAN CORPUSCULAR HGB CONC 32 g/dl (31.0-36.0); MEAN CORPUSCULAR VOLUME 95 fL (82-100); MONOCYTES # (AUTO) 1.6 K/uL (0.1-1.30); MONOCYTES % (AUTO) 7.9 % (2.0-12.0); NEUTROPHILS # (AUTO) 14.2 K/uL (1.8-8.9); NEUTROPHILS % (AUTO) 72.1 % (43.0-81.0); PLATELET COUNT (AUTO) 377 K/uL (150-450); RED BLOOD CELL COUNT(AUTO) 2.61 MIL/uL (4.0-5.2); WHITE BLOOD COUNT (AUTO) 19.7 K/uL (4.3-11.0)
[2021-11-20 18:00] LABS: CREATININE 1.9 mg/dL (0.6-1.3); POTASSIUM 3.8 mmol/L (3.5-5.1)
[2021-11-20 18:06] LABS: ALBUMIN 2.1 g/dL (3.4-5.0); BILIRUBIN,DIRECT 0.3 mg/dL (0.0-0.2); BILIRUBIN,TOTAL 0.6 mg/dL (0.2-1.0); TOTAL PROTEIN, SERUM 7.9 g/dL (6.4-8.2)
[2021-11-20 18:32] LABS: EOSINOPHILS % (MANUAL) 5 % (0-4); LYMPHOCYTES % (MANUAL) 11 % (16-48); MONOCYTES % (MANUAL) 5 % (0-11.0); NEUTROPHILS % (MANUAL) 79 (42-76)
--- NOTE | 2021-11-20 18:32 | NUR ---
NOTIFIED HEAVEN MANZANO OF VITAL SIGNS: BP 191/59 P 85 O2 94% ON FIO2 30% VENT
--- NOTE | 2021-11-20 18:32 | NUR ---
NOTIFIED HEAVEN MANZANO OF VITAL SIGNS: BP 191/59 P 85 O2 94% ON FIO2 30% VENT
--- NOTE | 2021-11-20 19:05 | NUR ---
ADL'S DONE. BMX1. PT TOLERATED WELL. PT KEPT COMFORTABLE. GTUBE INTACT.
--- NOTE | 2021-11-20 19:05 | NUR ---
ADL'S DONE. BMX1. PT TOLERATED WELL. PT KEPT COMFORTABLE. GTUBE INTACT.
--- NOTE | 2021-11-20 19:12 | NUR ---
CALLED [facility], PAGED MARITZA DOUGLAS
--- NOTE | 2021-11-20 19:12 | NUR ---
CALLED [facility], PAGED MARITZA DOUGLAS
--- NOTE | 2021-11-20 19:15 | NUR ---
RESEARCH SOFTWARE ENGINEER F/C IN PT'S GTUBE SITE. HEAVEN MANZANO AWARE
--- NOTE | 2021-11-20 19:15 | NUR ---
IT TECHNICAL SPECIALIST F/C IN PT'S GTUBE SITE. HEAVEN MANZANO AWARE
--- NOTE | 2021-11-20 19:24 | NUR ---
COVID ANTIGEN AND PCR COLLECTED AND SENT TO LAB
--- NOTE | 2021-11-20 19:24 | NUR ---
COVID ANTIGEN AND PCR COLLECTED AND SENT TO LAB
[2021-11-20] MEDS ORDERED: DEXTROSE 50%-WATER 50 ML DISP.SYRIN ONE (19:38)
--- NOTE | 2021-11-20 19:38 | NUR ---
BED 104
--- NOTE | 2021-11-20 19:38 | NUR ---
BED 104
[2021-11-20] MEDS: DEXTROSE 50%-WATER 50 ML DISP.SYRIN IV PRN (19:42)
--- NOTE | 2021-11-20 19:42 | NUR ---
BS 36 NOTIFIED HEAVEN MANZANO VERBAL ORDER FROM HEAVEN MANZANO FOR DEXTROSE 50%. ADMINISTERED RFA #20G; PATENT AND INTACT
--- NOTE | 2021-11-20 19:42 | NUR ---
BS 36 NOTIFIED HEAVEN MANZANO VERBAL ORDER FROM HEAVEN MANZANO FOR DEXTROSE 50%. ADMINISTERED RFA #20G; PATENT AND INTACT
--- NOTE | 2021-11-20 19:48 | NUR ---
CALLED [facility] TO GIVE REPORT; AWAITING JED TO CALL BACK FOR YECENIA
--- NOTE | 2021-11-20 19:48 | NUR ---
CALLED [facility] TO GIVE REPORT; AWAITING JED TO CALL BACK FOR YECENIA
[2021-11-20] MEDS ORDERED: CEFEPIME 1 GM in IV D5W 50 ML IV ONE (20:00)
[2021-11-20] MEDS ORDERED: MAG HYDROX/AL HYDROX/SIMETH 30 ML UDC PO PRN (20:00)
[2021-11-20] MEDS ORDERED: CEFEPIME 1 GM in IV D5W 50 ML IV SCH (20:00)
[2021-11-20] MEDS ORDERED: Medication Not On Formulary EA (Ipratropium/Albuterol Sulfate (Duoneb 2.5-0.5 Mg/3 Ml So IH SCH (20:00)
[2021-11-20] MEDS ORDERED: MAGNESIUM HYDROXIDE 30 ML UDC PO PRN (20:00)
[2021-11-20] MEDS ORDERED: LIDOCAINE 5% OINT 35.44 GM TUBE TP PRN (20:00)
[2021-11-20] MEDS ORDERED: Medication Not On Formulary EA (Ipratropium/Albuterol Sulfate (Duoneb 2.5-0.5 Mg/3 Ml So IH PRN (20:00)
[2021-11-20] MEDS ORDERED: Z GUARD REMEDY 2 OZ OINT TP PRN (20:00)
[2021-11-20] MEDS ORDERED: ACETAMINOPHEN 325 MG TABLET PO PRN (20:00)
--- NOTE | 2021-11-20 20:00 | NUR ---
REPORT GIVEN TO JED URBAN FOR YECENIA
--- NOTE | 2021-11-20 20:00 | NUR ---
REPORT GIVEN TO JED URBAN FOR YECENIA
--- NOTE | 2021-11-20 20:15 | NUR ---
ONLINE PROGRAM COORDINATOR NOTE ADMIT 51 YEAR OLD FEMALE TO [facility] UNIT AT ROOM 101,ALERT ORIENTED X3 MOUTH WORD,ADMITTING DIAGNOSIS IS RESPIRATORY FAILURE ASPIRATION PNA,ON MECHANICAL VENT SETTING TRACH SHILEY 7.5 TV 300 FIO2:30% PEEP 5 O2:95% IV SITE IS ON RIGHT AC INTACT PATENT,SACRAL WOUND AND RIGHT FOREARM WOUND,LEFT UPPER KNEE AMPUTATION AND RIGHT FOOT AMPUTATION,RIGHT ARM EDEMA +3 SAFETY MEASURE IMPLEMENT,HEAD OF THE BED ELEVATED CALL LIGHT WITHIN REACH CONTINUE TO MONITOR
--- NOTE | 2021-11-20 20:17 | NUR ---
TRANSFERRED PT TO [facility] 101 VIA ACLS PROTOCOL WITH RT. TOLERATED TRANSFER WELL. ALL BELONGINGS WITH PT.
--- NOTE | 2021-11-20 20:17 | NUR ---
TRANSFERRED PT TO [facility] 101 VIA ACLS PROTOCOL WITH RT. TOLERATED TRANSFER WELL. ALL BELONGINGS WITH PT.
[2021-11-20] MEDS ORDERED: ALBUTEROL FS 2.5 MG/0.5 ML VIAL.NEB NEB PRN (20:30)
[2021-11-20] MEDS ORDERED: IPRATROPIUM NEB FS 0.5 MG/2.5 ML AMPUL.NEB NEB PRN (20:30)
[2021-11-20] MEDS ORDERED: VANCOMYCIN 1 GM in IV D5W 250ml IV ONE (21:00)
[2021-11-20] MEDS ORDERED: VANCOMYCIN 500 MG in IV D5W 100 ML IV PRN (21:00)
[2021-11-20] MEDS: CHLORHEXIDINE GLUCONATE 15 ML UDC MM SCH (21:06)
[2021-11-20] MEDS: hydrALAZINE HCL 25 MG TABLET PO SCH (21:07)
[2021-11-20 21:31] VITALS: BP 169/85
[2021-11-20] MEDS ORDERED: INSULIN GLARGINE HUM REC ANLOG 5 UNIT SQ SCH (22:00)
[2021-11-20] MEDS: MEROPENEM 500 MG in IV NS 0.9% 50 ML IV SCH (22:21)
[2021-11-21] VITALS: BP 160/88
[2021-11-21] MEDS: DEXTROSE 50%-WATER 50 ML DISP.SYRIN IV PRN ×5 (00:12→18:57)
[2021-11-21] MEDS: BLOOD SUGAR DIAGNOSTIC 1 EACH STRIP IN SCH ×4 (00:13→18:29)
[2021-11-21] MEDS: ACETAMINOPHEN 650 MG/20.3 ML UDC JT PRN (02:04)
[2021-11-21] MEDS: hydrALAZINE HCL IV 20 MG VIAL IV PRN (02:07)
--- NOTE | 2021-11-21 02:30 | NUR ---
RN NOTE PATIENT BLOOD SUGAR DROPPED TO 55 CALLED MANAGER TRAINING AND DEVELOPMENT MARITZA,SHE ORDERED D50 EVERY TIME WHEN BLOOD SUGAR DROP TO BELOW 60 NOTED AND CARRIED OUT.
--- NOTE | 2021-11-21 02:30 | NUR ---
RN NOTE PATIENT BLOOD SUGAR DROPPED TO 55 CALLED FORECLOSURE FIELD INSPECTOR MARITZA,SHE ORDERED D50 EVERY TIME WHEN BLOOD SUGAR DROP TO BELOW 60 NOTED AND CARRIED OUT.
[2021-11-21 04:00] VITALS: BP 142/69
--- NOTE | 2021-11-21 06:00 | NUR ---
RN NOTE BLOOD SUGAR IS 63 NOW CONTINUE TO MONITOR.
--- NOTE | 2021-11-21 06:00 | NUR ---
RN NOTE BLOOD SUGAR IS 63 NOW CONTINUE TO MONITOR.
[2021-11-21 06:41] LABS: BASOPHILS # (AUTO) 0.1 K/uL (0.0-0.2); BASOPHILS % (AUTO) 0.4 % (0.0-2.0); EOSINOPHILS % (AUTO) 2.6 % (0.0-6.0); HEMATOCRIT 23 % (33-45); HEMOGLOBIN 7.3 g/dL (11.5-14.8); LYMPHOCYTES # (AUTO) 1.9 K/uL (0.8-4.8); LYMPHOCYTES % (AUTO) 7.4 % (20.0-44.0); MEAN CORPUSCULAR HGB CONC 32 g/dl (31.0-36.0); MEAN CORPUSCULAR VOLUME 93 fL (82-100); MONOCYTES # (AUTO) 1.5 K/uL (0.1-1.30); MONOCYTES % (AUTO) 5.9 % (2.0-12.0); NEUTROPHILS # (AUTO) 21.3 K/uL (1.8-8.9); NEUTROPHILS % (AUTO) 83.7 % (43.0-81.0); PLATELET COUNT (AUTO) 329 K/uL (150-450); RED BLOOD CELL COUNT(AUTO) 2.45 MIL/uL (4.0-5.2); WHITE BLOOD COUNT (AUTO) 25.4 K/uL (4.3-11.0)
--- NOTE | 2021-11-21 06:42 | NUR ---
RN NOTE PATIENT REMAINS ALERT ORIENTED X3 ON MECHANICAL VENT NO SOB NOTED ALL DUE MEDS GIVEN MD ORDERED KEPT CLEAN AND DRY ALL THE TIME,REPOSITIONED EVERY 2HOURS ENDORSE NEXT COMING SHIFT FOR CONTINUATION OF CARE
--- NOTE | 2021-11-21 06:58 | NUR ---
RN NOTE IV LINE IN RIGHT AC INFILTRATED REMOVED APPLIED 4X4,STARTED A NEW LINE ON LEFT FOREARM #22 WITH GOOD BLOOD RETURN NO INFILTRATION ENDORSE FOR NEXT SHIFT
[2021-11-21 07:14] LABS: CALCIUM, SERUM 9.3 mg/dL (8.5-10.1); CREATININE 2.3 mg/dL (0.6-1.3); MAGNESIUM 2.5 mg/dL (1.8-2.4); PHOSPHORUS 3.1 mg/dL (2.5-4.9)
--- NOTE | 2021-11-21 07:30 | NUR ---
TD RN AM NOTES RECEIVED PT IN BED, ABLE TO MOUTH WORDS, COMMUNICATE BY WRITING, WITH SH 6 TRACH TO MECHANICAL VENT WITH SETTING OF AC 18 TV 300 FIO2 30% PEEP 5, BREATHING EVEN AND UNLABORED, SR HR 80 ON MONITOR. DENIES PAIN, WITH LEFT FA 22G FLUSHES WELL, SITE CLEAR. PT WITH A OWEN CATH IN PLACE ON G TUBE SITE. FLUSHED. PATENT. NPO EXCEPT MEDS.SEE NURSING FLOWSHEET FOR SKIN ISSUES. ISOLATION PRECAUTION OBSERVED. SAFETY MEASURES IN PLACE, BED LOW/LOCKED, HOB UP 30 DEG.SR UP X2, CALL LIGHT WITHIN REACH. WILL CONT TO MONITOR.
[2021-11-21 08:00] VITALS: BP 146/85
[2021-11-21] MEDS: PANTOPRAZOLE 40 MG/PACK PACK JT SCH (08:34)
[2021-11-21] MEDS: CHLORHEXIDINE GLUCONATE 15 ML UDC MM SCH ×2 (08:34→20:12)
[2021-11-21] MEDS: hydrALAZINE HCL 25 MG TABLET PO SCH ×2 (08:40→20:13)
[2021-11-21] MEDS ORDERED: PANTOPRAZOLE 40 MG VIAL IV SCH (09:00)
--- NOTE | 2021-11-21 09:57 | NUR ---
WOUND CARE CONSULT: REVIEWED CHART, NURSING DOCUMENTATION AND PHOTOS WHICH INDICATE MULTIPLE SKIN ISSUES AND WOUNDS INCLUDING SACRAL NECROTIC PRESSURE ULCER, PRESENT ON ADMISSION. DR STAHL NOTIFIED OF SURGICAL CONSULT REQUEST. RECOMMENDATIONS MADE FOR SKIN PROTECTION AND DISCUSSED WITH NURSING STAFF. PT IS ON LOIS ISOFLEX LOW AIRLOSS BED. MD IN AGREEMENT WITH PLAN OF CARE.
[2021-11-21 12:00] VITALS: BP 142/85
[2021-11-21 12:19] LABS: THYROID STIMULATING HORMONE 2.985 uIU/mL (0.358-3.74)
--- NOTE | 2021-11-21 12:45 | NUR ---
RN NOTES PATIENT PULLED OUT OWEN IN JEJUNOSTOMY SITE. DR. LEODAN MONTGOMERY NOTIFIED.
--- NOTE | 2021-11-21 12:45 | NUR ---
RN NOTES PATIENT PULLED OUT OWEN IN JEJUNOSTOMY SITE. DR. LEODAN MONTGOMERY NOTIFIED.
--- NOTE | 2021-11-21 13:45 | NUR ---
RN NOTES THORACENTESIS DONE. COLLECTED 20 ML SPECIMEN SENT TO LAB BY TYRESE SCHAFER CHARGE NURSE.
--- NOTE | 2021-11-21 13:45 | NUR ---
RN NOTES THORACENTESIS DONE. COLLECTED 20 ML SPECIMEN SENT TO LAB BY TYRESE SCHAFER CHARGE NURSE.
--- NOTE | 2021-11-21 14:27 | NUR ---
RN NOTES ACCUCHECK DONE. BS 50 MG/DL. D50 ADMINISTERED BUT FORGOT TO SCAN. WILL REASSESS BLOOD SUGAR.
--- NOTE | 2021-11-21 14:27 | NUR ---
RN NOTES ACCUCHECK DONE. BS 50 MG/DL. D50 ADMINISTERED BUT FORGOT TO SCAN. WILL REASSESS BLOOD SUGAR.
[2021-11-21] MEDS: HYDROMORPHONE 1 MG/1 ML DISP.SYRIN IV PRN (15:16)
[2021-11-21 16:00] VITALS: BP 142/65
[2021-11-21] MEDS ORDERED: DIATR MEGLU/DIATRIZOATE SODIUM 30 ML BOTTLE (GASTROGRAPHIN) ONE (16:01)
--- NOTE | 2021-11-21 16:26 | NUR ---
RN NOTES DR. LEODAN SHI BEDSIDE, JEJUNOSTOMY SITE ASSESSED, INSERTED A OWEN CATH TEMPORARY, ORDERED FOR GRASTROGRAFFIN STUDY. WILL RELAY RESULT
--- NOTE | 2021-11-21 16:26 | NUR ---
RN NOTES DR. LEODAN SHI BEDSIDE, JEJUNOSTOMY SITE ASSESSED, INSERTED A OWEN CATH TEMPORARY, ORDERED FOR GRASTROGRAFFIN STUDY. WILL RELAY RESULT
[2021-11-21] MEDS ORDERED: GLUCAGON,HUMAN RECOMBINANT 1 MG/VIAL VIAL IM ONE (17:30)
[2021-11-21] MEDS: NYSTATIN (PYXIS) 500,000 UNIT/5 ML ORAL.SUSP PO SCH (18:30)
--- NOTE | 2021-11-21 19:02 | NUR ---
TD RN CLOSING NOTES PT IN BED, RESTING, ABLE TO MOUTH WORDS, COMMUNICATE BY WRITING, WITH SH 6 TRACH TO MECHANICAL VENT WITH SETTING OF AC 18 TV 300 FIO2 30% PEEP 5, BREATHING EVEN AND UNLABORED, SR HR 80 ON MONITOR. DENIES PAIN, WITH LEFT FA 22G FLUSHES WELL, SITE CLEAR. PT WITH A OWEN CATH IN PLACE ON J TUBE SITE. FLUSHED. PATENT. NPO EXCEPT MEDS.ISOLATION PRECAUTION OBSERVED. SAFETY MEASURES IN PLACE, BED LOW/LOCKED, HOB UP 30 DEG.SR UP X2, CALL LIGHT WITHIN REACH. WILL ENDORSE TO NEXT SHIFT FOR YECENIA. PM CARE DONE. WOUND KEPT CLEAN AND DRESSING IN PLACE. STILL WAITING FOR DR. STAHL'S EVAL ALL NEEDS MET AT THIS TIME. NEEDS TO START TUBE FEEDING NEPRO AT 50 ML/HR.
--- NOTE | 2021-11-21 19:10 | NUR ---
RN NOTE RECEIVED PATIENT IN BED RESTING ALERT ORIENTED X3,MOUTH WORDS,ON TELE MONITORING ON MECHANICAL VENT IV SITE IS ON RIGHT UPPER ARM MIDLINE INTACT PATENT AND LEFT FOREARM INTACT, PATENT ON J-TUBE FEEDING WHEN IS AVAILABLE WILL START FEEDING,MONITOR FOR BLOOD SUGAR,DROPS,SAFETY MEASURE IMPLEMENT,HEAD OF THE BED ELEVATED,WILL REPOSITION EVERY 2 HOURS,CALL LIGHT WITHIN REACH CONTINUE TO MONITOR.
[2021-11-21 20:00] VITALS: BP 177/80
[2021-11-21] MEDS: MEROPENEM 500 MG in IV NS 0.9% 50 ML IV SCH (21:41)
[2021-11-21] MEDS: DAKINS QUARTER STRENGTH (0.125%) 480 ML BOTTLE TOP SCH (22:00)
[2021-11-21] MEDS: NEPRO 1,000 ML BOTTLE GT PRN (23:02)
[2021-11-22] VITALS: BP 169/78
--- NOTE | 2021-11-22 | NUR ---
RN NOTE BLOOD PRESSURE IS 169/78 WILL ADMINISTER HYDRALAZINE 10MG PRN.
--- NOTE | 2021-11-22 | NUR ---
RN NOTE BLOOD SUGAR IS 58 WILL ADMINISTER D50 ORDERED CONTINUE TO MONITOR.
--- NOTE | 2021-11-22 | NUR ---
RN NOTE BLOOD SUGAR IS 58 WILL ADMINISTER D50 ORDERED CONTINUE TO MONITOR.
--- NOTE | 2021-11-22 | NUR ---
RN NOTE BLOOD PRESSURE IS 169/78 WILL ADMINISTER HYDRALAZINE 10MG PRN.
[2021-11-22] MEDS: BLOOD SUGAR DIAGNOSTIC 1 EACH STRIP IN SCH ×5 (00:07→23:21)
[2021-11-22] MEDS: DEXTROSE 50%-WATER 50 ML DISP.SYRIN IV PRN ×2 (00:11→17:33)
[2021-11-22] MEDS: hydrALAZINE HCL IV 20 MG VIAL IV PRN (00:12)
--- NOTE | 2021-11-22 00:47 | NUR ---
RN NOTE RECHECKED BLOOD SUGAR IS 169 CONTINUE TO MONITOR.
--- NOTE | 2021-11-22 00:47 | NUR ---
RN NOTE RECHECKED BLOOD SUGAR IS 169 CONTINUE TO MONITOR.
--- NOTE | 2021-11-22 01:00 | NUR ---
RN NOTE RECHECKED BLOOD PRESSURE IS 153/77 NOW CONTINUE TO MONITOR.
--- NOTE | 2021-11-22 01:00 | NUR ---
RN NOTE RECHECKED BLOOD PRESSURE IS 153/77 NOW CONTINUE TO MONITOR.
[2021-11-22 04:00] VITALS: BP 157/83
--- NOTE | 2021-11-22 06:00 | NUR ---
RN NOTE BLOOD SUGAR CHECKED IS 107 CONTINUE TO MONITOR
--- NOTE | 2021-11-22 06:00 | NUR ---
RN NOTE BLOOD SUGAR CHECKED IS 107 CONTINUE TO MONITOR
--- NOTE | 2021-11-22 06:42 | NUR ---
RN NOTE PATIENT REMAINS ON ALERT ORIENTED X3 MOUTH WORDS,ON MECHANICAL VENT ON J-TUBE FEEDING NEPHRO 1.8 55CC/HR ALL DUE MEDS GIVEN MD ORDERED KEPT CLEAN AND DRY ALL THE TIME,KEPT COMFORTABLE,REPOSITIONED EVERY 2 HOURS,IV SITE IS ON RIGHT UPPER ARM MIDLINE AND LEFT FOREARM INTACT PATENT,LAST BLOOD SUGAR AT 0600 WAS 107 ALL NEEDS MET ENDORSE NEXT COMING SHIFT FOR CONTINUATION OF CARE.
--- NOTE | 2021-11-22 07:00 | NUR ---
RN NOTE REPORT REC'D AT BEDSIDE FROM JED URBAN. PT IS AWAKE ALERT ABLE TO MAKE NEEDS KNOWN. IN NO ACUTE DISTRESS. COMFORTABLE AT PRESENT. ML TO JANET PATENT, DRESSING INTACT. TOLERATING TUBE FEEDING AT 55CC/HR VIA J-TUBE WITHOUT GASTRIC RESIDUAL. TRACH CONNECTED TO VENT SETTING FF:AC18 TV300 PEEP5 SATURATING @98% FIO2 30% TOLERATING WELL. SAFETY MEASURES IN PLACE. CALL LIGHT WITHIN REACH. WILL CONTINUE TO MONITOR.
[2021-11-22 08:00] VITALS: BP 165/87
[2021-11-22 08:17] LABS: CALCIUM, SERUM 8.9 mg/dL (8.5-10.1); CREATININE 2.9 mg/dL (0.6-1.3); MAGNESIUM 2.5 mg/dL (1.8-2.4); PHOSPHORUS 3.4 mg/dL (2.5-4.9); POTASSIUM 4.1 mmol/L (3.5-5.1)
[2021-11-22 08:28] LABS: BASOPHILS # (AUTO) 0.2 K/uL (0.0-0.2); BASOPHILS % (AUTO) 0.8 % (0.0-2.0); EOSINOPHILS % (AUTO) 21.3 % (0.0-6.0); HEMATOCRIT 23 % (33-45); HEMOGLOBIN 7.4 g/dL (11.5-14.8); LYMPHOCYTES # (AUTO) 2.1 K/uL (0.8-4.8); MEAN CORPUSCULAR HGB CONC 33 g/dl (31.0-36.0); MEAN CORPUSCULAR VOLUME 95 fL (82-100); MONOCYTES # (AUTO) 1.6 K/uL (0.1-1.30); MONOCYTES % (AUTO) 6.8 % (2.0-12.0); NEUTROPHILS # (AUTO) 14.2 K/uL (1.8-8.9); NEUTROPHILS % (AUTO) 62.1 % (43.0-81.0); PLATELET COUNT (AUTO) 345 K/uL (150-450); RED BLOOD CELL COUNT(AUTO) 2.38 MIL/uL (4.0-5.2); WHITE BLOOD COUNT (AUTO) 22.8 K/uL (4.3-11.0)
[2021-11-22] MEDS: PANTOPRAZOLE 40 MG/PACK PACK JT SCH (08:43)
[2021-11-22] MEDS: CHLORHEXIDINE GLUCONATE 15 ML UDC MM SCH ×2 (08:44→21:00)
[2021-11-22] MEDS: DAKINS QUARTER STRENGTH (0.125%) 480 ML BOTTLE TOP SCH (08:44)
[2021-11-22] MEDS: hydrALAZINE HCL 25 MG TABLET PO SCH ×2 (08:45→21:00)
[2021-11-22] MEDS: NYSTATIN (PYXIS) 500,000 UNIT/5 ML ORAL.SUSP PO SCH ×3 (08:45→17:00)
[2021-11-22 09:28] LABS: EOSINOPHILS % (MANUAL) 17 % (0-4); LYMPHOCYTES % (MANUAL) 7 % (16-48); MONOCYTES % (MANUAL) 3 % (0-11.0); NEUTROPHILS % (MANUAL) 73 (42-76)
--- NOTE | 2021-11-22 10:00 | NUR ---
RN NOTE ROUNDS MADE.AWAKE. NO SOB. NO C/O CHEST PAIN OR DISCOMFORT. REPOSITIONED FOR COMFORT.TOLERATING FEEDING. BP 160/80 AFTER BP MED GIVEN AN HOUR AGO. SUCTIONED WHITISH THIN SECRETIONS VIA TRACH TOLERATED WELL. NEEDS ATTENDED
[2021-11-22] MEDS: INSULIN REGULAR, HUMAN 100 UNIT/ML 3 ML VIAL SQ PRN ×2 (11:43→17:38)
[2021-11-22 12:00] VITALS: BP 174/84
[2021-11-22] MEDS ORDERED: EPOETIN ALFA-EPBX 2,000 UNIT/ML VIAL IV PRN (14:30)
--- NOTE | 2021-11-22 15:36 | NUR ---
RN NOTE BP IS NOW 155/88 AFTER ADMINISTRATION OF APRESOLINE 10 MG IVP. REPOSITIONED FOR COMFORT. SUCTIONED TRACH WITH THIN WHITISH SECRETIONS. TOLERATED WELL. AWAITS HD TODAY.
[2021-11-22 16:10] VITALS: BP 155/88
--- NOTE | 2021-11-22 17:33 | NUR ---
RN NOTE PT'S BS FOUND TO BE 31. PT IS AWAKE. NO S/SX OF HYPOGLYCEMIA. D50 IV GIVEN ORDERED. WILL RECHECK BS IN 30 MIN.
--- NOTE | 2021-11-22 17:33 | NUR ---
RN NOTE PT'S BS FOUND TO BE 31. PT IS AWAKE. NO S/SX OF HYPOGLYCEMIA. D50 IV GIVEN ORDERED. WILL RECHECK BS IN 30 MIN.
--- NOTE | 2021-11-22 19:03 | NUR ---
RN NOTE PT COMFORTABLY SLEEPING. LEFT UNDISTURBED. BREATHING EVEN AND UNLABORED. VENT WITH SAME SETTINGS. TOLERATING WELL. JTUBE FLUSHED WELL, FEEDING AT 55CC/HR. NO GASTRIC RESIDUAL. HD IN PROGRESS HD RN AT BEDSIDE. BP WNL. REPOSITIONED PT Q2HR. WOUND TREATMENT DONE ORDERED. ALL NEEDS WERE MET. SAFETY MEASURES IN PLACE. WILL ENDORSE NOC RN FOR YECENIA.
--- NOTE | 2021-11-22 19:17 | NUR ---
RN OPENING NOTES RECEIVED PT IN BED, RECEIVED HEMODIALYSIS. AOx2. ON VENTILATOR AND TOLERATING WELL. NO SOB NOTED. NO S/SX OF RESPIRATORY DISTRESS NOTED. TELE MONITOR DETECTS SINUS RHYTHM. IV ACCESS IN JAENT MIDLINE AND LFA #22, AND LEFT CHEST PERMACATH. IV ACCESS IS INTACT, PATENT, AND FLUSHING WELL. J-TUBE RUNNING NEPRO @ 55 ML/HR. SAFETY PRECAUTIONS IN PLACE: BED IN LOWEST, LOCKED POSITION, SIDERAILS UPx2, AND BRAKES ON. TABLE AND CALL LIGHT WITHIN REACH. WILL CONTINUE TO MONITOR.
--- NOTE | 2021-11-22 19:17 | NUR ---
RN OPENING NOTES RECEIVED PT IN BED, RECEIVED HEMODIALYSIS. AOx2. ON VENTILATOR AND TOLERATING WELL. NO SOB NOTED. NO S/SX OF RESPIRATORY DISTRESS NOTED. TELE MONITOR DETECTS SINUS RHYTHM. IV ACCESS IN JANET MIDLINE AND LFA #22, AND LEFT CHEST PERMACATH. IV ACCESS IS INTACT, PATENT, AND FLUSHING WELL. J-TUBE RUNNING NEPRO @ 55 ML/HR. SAFETY PRECAUTIONS IN PLACE: BED IN LOWEST, LOCKED POSITION, SIDERAILS UPx2, AND BRAKES ON. TABLE AND CALL LIGHT WITHIN REACH. WILL CONTINUE TO MONITOR.
[2021-11-22 20:00] VITALS: BP 171/75
[2021-11-22] MEDS: NEPRO 1,000 ML BOTTLE GT PRN (20:00)
--- NOTE | 2021-11-22 20:44 | NUR ---
DIALYSIS NURSE FINISHED AROUND 1999. STATED 1000 ML REMOVED.
--- NOTE | 2021-11-22 20:44 | NUR ---
DIALYSIS NURSE FINISHED AROUND 1999. STATED 1000 ML REMOVED.
[2021-11-22] MEDS: MEROPENEM 500 MG in IV NS 0.9% 50 ML IV SCH (21:01)
[2021-11-22] MEDS: HYDROMORPHONE 1 MG/1 ML DISP.SYRIN IV PRN (21:11)
--- NOTE | 2021-11-22 21:11 | NUR ---
ADMINISTERED DILAUDID PER MD ORDER FOR PAIN. VS WNL. WILL CONTINUE TO MONITOR.
--- NOTE | 2021-11-22 21:11 | NUR ---
ADMINISTERED DILAUDID PER MD ORDER FOR PAIN. VS WNL. WILL CONTINUE TO MONITOR.
[2021-11-23] VITALS (7 sets, daily range): BP systolic 102–186; BP diastolic 46–85
[2021-11-23] MEDS: HYDROMORPHONE 1 MG/1 ML DISP.SYRIN IV PRN (01:55)
--- NOTE | 2021-11-23 01:55 | NUR ---
ADMINISTERED DILAUDID PER MD ORDER FOR PAIN. VS WNL. WILL CONTINUE TO MONITOR.
--- NOTE | 2021-11-23 01:55 | NUR ---
ADMINISTERED DILAUDID PER MD ORDER FOR PAIN. VS WNL. WILL CONTINUE TO MONITOR.
[2021-11-23] MEDS: BLOOD SUGAR DIAGNOSTIC 1 EACH STRIP IN SCH ×4 (05:07→23:17)
--- NOTE | 2021-11-23 05:21 | NUR ---
BS WAS 61 MG/DL. ADMINISTERED ORANGE JUICE VIA J-TUBE. WILL REASSESS.
--- NOTE | 2021-11-23 05:21 | NUR ---
BS WAS 61 MG/DL. ADMINISTERED ORANGE JUICE VIA J-TUBE. WILL REASSESS.
--- NOTE | 2021-11-23 05:52 | NUR ---
BS IS 116 MG/DL.
--- NOTE | 2021-11-23 05:52 | NUR ---
BS IS 116 MG/DL.
--- NOTE | 2021-11-23 06:32 | NUR ---
RN CLOSING NOTES PT IN BED, ASLEEP, AWAKENS TO VERBAL STIMULI. AOx2. ON VENTILATOR AND TOLERATING WELL. NO SOB NOTED. NO S/SX OF RESPIRATORY DISTRESS NOTED. TELE MONITOR DETECTS SINUS RHYTHM WITH RATE OF 70-80. IV ACCESS IN JANET MIDLINE AND LFA #22, AND LEFT CHEST PERMACATH. IV ACCESS IS INTACT, PATENT, AND FLUSHING WELL. J-TUBE RUNNING NEPRO @ 55 ML/HR. ALL NEEDS MET. PT KEPT CLEAN AND DRY. SAFETY PRECAUTIONS IN PLACE: BED IN LOWEST, LOCKED POSITION, SIDERAILS UPx2, AND BRAKES ON. TABLE AND CALL LIGHT WITHIN REACH. WILL ENDORSE TO ONCOMING SHIFT FOR YECENIA.
[2021-11-23 07:28] LABS: BASOPHILS # (AUTO) 0.1 K/uL (0.0-0.2); BASOPHILS % (AUTO) 0.6 % (0.0-2.0); HEMATOCRIT 24 % (33-45); HEMOGLOBIN 7.7 g/dL (11.5-14.8); LYMPHOCYTES % (AUTO) 9.1 % (20.0-44.0); MEAN CORPUSCULAR HGB CONC 32 g/dl (31.0-36.0); MEAN CORPUSCULAR VOLUME 95 fL (82-100); MONOCYTES # (AUTO) 1.6 K/uL (0.1-1.30); MONOCYTES % (AUTO) 7.5 % (2.0-12.0); NEUTROPHILS # (AUTO) 12.1 K/uL (1.8-8.9); NEUTROPHILS % (AUTO) 55.5 % (43.0-81.0); PLATELET COUNT (AUTO) 346 K/uL (150-450); RED BLOOD CELL COUNT(AUTO) 2.52 MIL/uL (4.0-5.2); WHITE BLOOD COUNT (AUTO) 21.7 K/uL (4.3-11.0)
--- NOTE | 2021-11-23 07:52 | NUR ---
[facility] covid negative.
--- NOTE | 2021-11-23 07:52 | NUR ---
[facility] covid negative.
[2021-11-23] MEDS: hydrALAZINE HCL 25 MG TABLET PO SCH ×2 (08:37→21:40)
[2021-11-23] MEDS: CHLORHEXIDINE GLUCONATE 15 ML UDC MM SCH ×2 (08:37→21:31)
[2021-11-23] MEDS: NYSTATIN (PYXIS) 500,000 UNIT/5 ML ORAL.SUSP PO SCH ×3 (08:37→16:56)
[2021-11-23] MEDS: PANTOPRAZOLE 40 MG/PACK PACK JT SCH (08:37)
[2021-11-23] MEDS: DAKINS QUARTER STRENGTH (0.125%) 480 ML BOTTLE TOP SCH (08:55)
[2021-11-23 09:06] LABS: EOSINOPHILS % (AUTO) 27.3 % (0.0-6.0)
--- NOTE | 2021-11-23 09:19 | NUR ---
RN OPENING NOTES RECEIVED PT AWAKE IN BED, RESPONSIVE TO STIMULI, ON MECHANICAL VENTILATOR AND TOLERATING WELL. NO SOB NOTED. NO S/SX OF RESPIRATORY DISTRESS . JANET MIDLINE AND LFA #[address] PAT[address] LEFT CHEST PERMACATH IN PLACE, NO SS OF BLEEDING. J-TUBE RUNNING NEPRO @ 55 ML/HR. SAFETY AND ASPIRATION PRECAUTIONS IN PLACE: BED IN LOWEST, LOCKED POSITION, SIDERAILS UPx2, AND BRAKES ON. TABLE AND CALL LIGHT WITHIN REACH. WILL CONTINUE TO MONITOR.
[2021-11-23 12:24] LABS: EOSINOPHILS % (MANUAL) 27 % (0-4); LYMPHOCYTES % (MANUAL) 10 % (16-48); MONOCYTES % (MANUAL) 6 % (0-11.0); NEUTROPHILS % (MANUAL) 57 (42-76)
[2021-11-23] MEDS: hydrALAZINE HCL IV 20 MG VIAL IV PRN ×2 (12:49→20:47)
[2021-11-23 14:01] LABS: CREATININE 2.2 mg/dL (0.6-1.3); MAGNESIUM 2.4 mg/dL (1.8-2.4); PHOSPHORUS 2.3 mg/dL (2.5-4.9); POTASSIUM 3.6 mmol/L (3.5-5.1)
--- NOTE | 2021-11-23 14:22 | NUR ---
RN NOTE WOUND CULTURE SPECIMEN COLLECTED AND PLACED CALL ON LAB FOR SPECIMEN GRADES 1 THROUGH 5 TEACHER.
--- NOTE | 2021-11-23 14:22 | NUR ---
RN NOTE WOUND CULTURE SPECIMEN COLLECTED AND PLACED CALL ON LAB FOR SPECIMEN WALL CLEANER.
--- NOTE | 2021-11-23 18:39 | NUR ---
RN NOTE PT RESTING IN BED. WITH MECH VENT IN PLACE, PT TOLERATING WELL WITH SETTINGS. NOT IN RESPIRATORY DISTRESS. CONTINUES ON J-TUBE FEEDING IN PLACE AND PATENT, CONTINUES ON NEPRO @55CC/HR. ASPIRATION PREC FOLLOWED. WILL CONTINUE TO MONITOR. V/S WNL.
--- NOTE | 2021-11-23 19:30 | NUR ---
RN NOTES RECEIVED PT FOR CONTINUITY OF CARE. PATIENT A/OX2-3 IN NO S/SX OF ACUTE DISTRESS AT THIS TIME; CURRENTLY ON MECHANICAL VENT; SETTINGS PRESCRIBED; WITH 02 SAT >95% AT THIS TIME. WILL ENSURE SAFETY MEASURES WITHIN THE SHIFT. PATIENT BED ALARM IS ON. HEAD OF BED ELEVATED. BED IS LOCKED, IN LOWEST POSITION AND SIDE RAILS UP. CALL LIGHT WITHIN REACH OF THE PATIENT. APPLICABLE ISOLATION PRECAUTIONS IN PLACE. WILL CONTINUE TO MONITOR AND REASSESS FOR ANY CHANGES AND WILL CARRY OUT ANY ONGOING AND ACTIVE MD ORDER.
[2021-11-23] MEDS: MEROPENEM 500 MG in IV NS 0.9% 50 ML IV SCH (21:40)
[2021-11-23] MEDS: INSULIN REGULAR, HUMAN 100 UNIT/ML 3 ML VIAL SQ PRN (23:17)
[2021-11-24] VITALS (7 sets, daily range): BP systolic 125–183; BP diastolic 42–76
[2021-11-24] MEDS: hydrALAZINE HCL IV 20 MG VIAL IV PRN (04:17)
[2021-11-24] MEDS: BLOOD SUGAR DIAGNOSTIC 1 EACH STRIP IN SCH ×3 (05:07→17:03)
[2021-11-24] MEDS: INSULIN REGULAR, HUMAN 100 UNIT/ML 3 ML VIAL SQ PRN ×3 (05:07→17:09)
--- NOTE | 2021-11-24 06:15 | NUR ---
RN NOTES NOTED PT'S 3 WAY OWEN GTUBE NOT SECURED FROM THE STAT LOCK; 5 INCHES OUT FROM THE CATHETER. GTUBE FEEDING HELD AT THIS TIME. SUPERVISOR FISHING MADE AWARE. RE-ADVANCE CATHETER INSIDE AND SECURED WITH STAT LOCK. PLACEMENT VERIFIED VIA AUSCULTATION; VERIFIED WITH SUPERVISOR FISHING. NOTIFIED BABS MANZANO (ОЛЬГА SALAS) AND SECURED ORDER FOR STAT XRAY TO CONFIRM PLACEMENT. WITH ENDORSE TO AM SHIFT FOR FOLLOWTHROUGH .
--- NOTE | 2021-11-24 06:15 | NUR ---
RN NOTES NOTED PT'S 3 WAY OWEN GTUBE NOT SECURED FROM THE STAT LOCK; 5 INCHES OUT FROM THE CATHETER. GTUBE FEEDING HELD AT THIS TIME. VARIOUS EXCEPTIONALITIES TEACHER MADE AWARE. RE-ADVANCE CATHETER INSIDE AND SECURED WITH STAT LOCK. PLACEMENT VERIFIED VIA AUSCULTATION; VERIFIED WITH VARIOUS EXCEPTIONALITIES TEACHER. NOTIFIED BABS MANZANO (ОЛЬГА SALAS) AND SECURED ORDER FOR STAT XRAY TO CONFIRM PLACEMENT. WITH ENDORSE TO AM SHIFT FOR FOLLOWTHROUGH .
[2021-11-24 06:42] LABS: BASOPHILS # (AUTO) 0.1 K/uL (0.0-0.2); BASOPHILS % (AUTO) 0.5 % (0.0-2.0); HEMATOCRIT 23 % (33-45); HEMOGLOBIN 7.6 g/dL (11.5-14.8); LYMPHOCYTES # (AUTO) 2.2 K/uL (0.8-4.8); LYMPHOCYTES % (AUTO) 11.5 % (20.0-44.0); MEAN CORPUSCULAR HGB CONC 33 g/dl (31.0-36.0); MEAN CORPUSCULAR VOLUME 94 fL (82-100); MONOCYTES # (AUTO) 1.6 K/uL (0.1-1.30); NEUTROPHILS # (AUTO) 10.1 K/uL (1.8-8.9); NEUTROPHILS % (AUTO) 51.9 % (43.0-81.0); PLATELET COUNT (AUTO) 348 K/uL (150-450); RED BLOOD CELL COUNT(AUTO) 2.44 MIL/uL (4.0-5.2); WHITE BLOOD COUNT (AUTO) 19.5 K/uL (4.3-11.0)
--- NOTE | 2021-11-24 06:49 | NUR ---
RN CLOSING NOTE: PATIENT REMAINS IN ROOM IN NO SIGNS OF RESPIRATORY DISTRESS, PATIENT STILL ON MECH VENT, SETTINGS PRESCRIBED; TOLERATING WELL SATURATING @ >95% SP02. SAFETY MEASURES IMPLEMENTED, BED IN LOWEST POSITION, LOCKED, SIDE RAILS UP, CALL LIGHT WITHIN REACH. ALL NEEDS AND ORDERS ADDRESSED DURING THE SHIFT. IV ACCESS MAINTAINED INTACT, SECURED AND FLUSHING WELL. ALL DUE MEDS GIVEN ORDERED & SCHEDULED ; PATIENT TOLERATED WELL. PATIENT KEPT CLEAN AND COMFORTABLE WITHIN THE SHIFT. PATIENT ENDORSED TO INCOMING SHIFT RN WITH STABLE VITAL SIGN AND FOR CONTINUITY OF CARE.
[2021-11-24 06:57] LABS: CALCIUM, SERUM 9.6 mg/dL (8.5-10.1); CREATININE 2.6 mg/dL (0.6-1.3); MAGNESIUM 2.5 mg/dL (1.8-2.4); PHOSPHORUS 2.2 mg/dL (2.5-4.9); POTASSIUM 3.8 mmol/L (3.5-5.1)
[2021-11-24 07:02] LABS: EOSINOPHILS % (AUTO) 28.1 % (0.0-6.0)
--- NOTE | 2021-11-24 07:52 | NUR ---
RN OPENING NOTES RECEIVED PT AWAKE IN BED, RESPONSIVE TO STIMULI, ON MECHANICAL VENTILATOR AND TOLERATING WELL. NO SOB NOTED. NO S/SX OF RESPIRATORY DISTRESS . JANET MIDLINE AND PATEN. LEFT CHEST PERMACATH IN PLACE, NO SS OF BLEEDING. AWAITING ABD X RAY TO VERIFY GTUBE PLACEMENT. SAFETY AND ASPIRATION PRECAUTIONS IN PLACE: BED IN LOWEST, LOCKED POSITION, SIDERAILS UPx2, AND BRAKES ON. TABLE AND CALL LIGHT WITHIN REACH. WILL CONTINUE TO MONITOR.
[2021-11-24] MEDS: PANTOPRAZOLE 40 MG/PACK PACK JT SCH (08:10)
[2021-11-24] MEDS: hydrALAZINE HCL 25 MG TABLET PO SCH ×2 (08:11→21:10)
--- NOTE | 2021-11-24 08:12 | NUR ---
RN NOTES HELD AM PO MEDS. DUE TO PT. GTUBE NOT CONFIRMED. AWAITING ABD XRAY TO CONTINUE MEDS.
--- NOTE | 2021-11-24 08:12 | NUR ---
RN NOTES HELD AM PO MEDS. DUE TO PT. GTUBE NOT CONFIRMED. AWAITING ABD XRAY TO CONTINUE MEDS.
[2021-11-24] MEDS ORDERED: DIATR MEGLU/DIATRIZOATE SODIUM 30 ML BOTTLE (GASTROGRAPHIN) ONE (08:17)
[2021-11-24] MEDS: CHLORHEXIDINE GLUCONATE 15 ML UDC MM SCH ×2 (08:27→21:10)
[2021-11-24] MEDS: NYSTATIN (PYXIS) 500,000 UNIT/5 ML ORAL.SUSP PO SCH ×3 (08:27→17:03)
[2021-11-24] MEDS: DAKINS QUARTER STRENGTH (0.125%) 480 ML BOTTLE TOP SCH (08:35)
[2021-11-24] MEDS: HYDROMORPHONE HCL 2 MG TABLET JT PRN (08:45)
[2021-11-24 13:24] LABS: EOSINOPHILS % (MANUAL) 30 % (0-4); LYMPHOCYTES % (MANUAL) 11 % (16-48); MONOCYTES % (MANUAL) 7 % (0-11.0); NEUTROPHILS % (MANUAL) 52 (42-76)
--- NOTE | 2021-11-24 14:02 | NUR ---
RN NOTES CONTACTED MD ABOUT PT PHOSPHORUS LVL 2.2 AND CREAT. LEVEL 2.6 MD WILL SEE PT IN PERSON.
--- NOTE | 2021-11-24 14:02 | NUR ---
RN NOTES CONTACTED MD ABOUT PT PHOSPHORUS LVL 2.2 AND CREAT. LEVEL 2.6 MD WILL SEE PT IN PERSON.
--- NOTE | 2021-11-24 15:16 | NUR ---
EVENTS SOLUTIONS CONSULTANT NOTE NOTED ARMENDARIZ LOOSE STOOL CALLED TO DR LEODAN MARC TO INSERT RECTAL TUBE , ORDER CARRIED OUT
--- NOTE | 2021-11-24 15:16 | NUR ---
LEAD PONY RIDER NOTE NOTED ARMENDARIZ LOOSE STOOL CALLED TO DR LEODAN MARC TO INSERT RECTAL TUBE , ORDER CARRIED OUT
[2021-11-24] MEDS: HYDROMORPHONE 1 MG/1 ML DISP.SYRIN IV PRN ×2 (15:27→22:13)
--- NOTE | 2021-11-24 17:09 | NUR ---
RN NOTES PT BS 116. NO INSULIN GIVEN.
--- NOTE | 2021-11-24 17:09 | NUR ---
RN NOTES PT BS 116. NO INSULIN GIVEN.
--- NOTE | 2021-11-24 18:42 | NUR ---
RN CLOSING NOTE PATIENT IN BED RESTING WITH NO SIGNS OF RESPIRATORY DISTRESS, PATIENT STILL ON MECH VENT, SETTINGS PRESCRIBED; TOLERATING WELL SATURATING @ >96% SP02. SAFETY MEASURES IMPLEMENTED, BED IN LOWEST POSITION, LOCKED, SIDE RAILS UP X3, CALL LIGHT WITHIN REACH. ALL NEEDS AND ORDERS ADDRESSED DURING THE SHIFT. IV ACCESS MAINTAINED INTACT, SECURED AND FLUSHING WELL. ALL DUE MEDS GIVEN ORDERED & SCHEDULED ; PATIENT TOLERATED WELL. PATIENT KEPT CLEAN, WOUND CARE X2, AND KEPT COMFORTABLE WITHIN THE SHIFT.
--- NOTE | 2021-11-24 19:20 | NUR ---
RN NOTE PT RECEIVED IN BED. PT IS TRACH/VENT WITH SETTINGS AT AC: 18, TV: 300, FIO2: 30%, AND PEEP 5. TOLERATING VENT SETTINGS WELL. PT IS ALERT AND ORIENTED X2, HUNGARIAN SPEAKING. ON PADDER CUSHION SHOWING NSR. OWEN CATH NOTED. NEPRO RUNNING AT 55 CC/HR. PT TOLERATING WELL WITH NO RESIDUAL NOTED. RIGHT UPPER CHEST WALL HD CATH NOTED. RIGHT UPPER ARM MIDLINE NOTED. LINE FLUSHED, PATENT, AND INTACT WITH NO SIGNS OF INFILTRATION. ALL SAFETY MEASURES IMPLEMENTED. CALL LIGHT WITHIN REACH. BED ALARM ON. BED LOCKED AND IN LOWEST POSITION, SIDE RAILS UP. WILL CONTINUE TO MONITOR AND ASSESS FOR ANY CHANGES DURING SHIFT.
--- NOTE | 2021-11-24 19:20 | NUR ---
RN NOTE PT RECEIVED IN BED. PT IS TRACH/VENT WITH SETTINGS AT AC: 18, TV: 300, FIO2: 30%, AND PEEP 5. TOLERATING VENT SETTINGS WELL. PT IS ALERT AND ORIENTED X2, SETSWANA SPEAKING. ON DIGITAL MEDIA COORDINATOR SHOWING NSR. OWEN CATH NOTED. NEPRO RUNNING AT 55 CC/HR. PT TOLERATING WELL WITH NO RESIDUAL NOTED. RIGHT UPPER CHEST WALL HD CATH NOTED. RIGHT UPPER ARM MIDLINE NOTED. LINE FLUSHED, PATENT, AND INTACT WITH NO SIGNS OF INFILTRATION. ALL SAFETY MEASURES IMPLEMENTED. CALL LIGHT WITHIN REACH. BED ALARM ON. BED LOCKED AND IN LOWEST POSITION, SIDE RAILS UP. WILL CONTINUE TO MONITOR AND ASSESS FOR ANY CHANGES DURING SHIFT.
[2021-11-24] MEDS: MEROPENEM 500 MG in IV NS 0.9% 50 ML IV SCH (21:09)
--- NOTE | 2021-11-24 21:31 | NUR ---
RN NOTE PT SCHEDULED 2099 APRESOLINE FELL ON FLOOR. PULLED ANOTHER ONE OUT OF OMNICELL. CREATIVE ASSISTANT EM BETANCOURT.
--- NOTE | 2021-11-24 21:31 | NUR ---
RN NOTE PT SCHEDULED 2099 APRESOLINE FELL ON FLOOR. PULLED ANOTHER ONE OUT OF OMNICELL. LOGISTICS/SHIPPER EM BETANCOURT.
[2021-11-25] VITALS: BP 167/79
[2021-11-25] MEDS: BLOOD SUGAR DIAGNOSTIC 1 EACH STRIP IN SCH ×5 (00:16→23:21)
[2021-11-25] MEDS: DEXTROSE 50%-WATER 50 ML DISP.SYRIN IV PRN ×3 (00:17→17:09)
--- NOTE | 2021-11-25 00:17 | NUR ---
RN NOTE PT BLOOD SUGAR WAS 57. D50 GIVEN. WILL RE-ASSESS AND CONTINUE TO MONITOR FOR ANY CHANGES.
--- NOTE | 2021-11-25 00:17 | NUR ---
RN NOTE PT BLOOD SUGAR WAS 57. D50 GIVEN. WILL RE-ASSESS AND CONTINUE TO MONITOR FOR ANY CHANGES.
[2021-11-25] MEDS: NEPRO 1,000 ML BOTTLE GT PRN (00:23)
[2021-11-25] MEDS: hydrALAZINE HCL IV 20 MG VIAL IV PRN (00:33)
--- NOTE | 2021-11-25 00:34 | NUR ---
RN NOTE PT BP STILL ELEVATED AFTER ADMINISTRATION OF SCHEDULED APRESOLINE PO VIA GT. AFTER RE-ASSESSMENT, PT BP IS STILL IN 170'S. APRESOLINE IVP GIVEN. WILL CONTINUE TO MONITOR AND ASSESS FOR ANY CHANGES.
--- NOTE | 2021-11-25 00:53 | NUR ---
RN NOTE PT BLOOD SUGAR NOW 138 AFTER ADMINISTRATION OF D50. WILL CONTINUE TO MONITOR AND ASSESS FOR SYMPTOMS OF HYPOGLYCEMIA.
--- NOTE | 2021-11-25 00:53 | NUR ---
RN NOTE PT BLOOD SUGAR NOW 138 AFTER ADMINISTRATION OF D50. WILL CONTINUE TO MONITOR AND ASSESS FOR SYMPTOMS OF HYPOGLYCEMIA.
[2021-11-25 04:00] VITALS: BP 153/76
--- NOTE | 2021-11-25 05:42 | NUR ---
RN NOTE BS 107. NO INSULIN COVERAGE REQUIRED PER SLIDING SCALE.
--- NOTE | 2021-11-25 05:42 | NUR ---
RN NOTE BS 107. NO INSULIN COVERAGE REQUIRED PER SLIDING SCALE.
[2021-11-25 06:40] LABS: BASOPHILS # (AUTO) 0.2 K/uL (0.0-0.2); BASOPHILS % (AUTO) 0.9 % (0.0-2.0); HEMATOCRIT 25 % (33-45); LYMPHOCYTES # (AUTO) 2.4 K/uL (0.8-4.8); LYMPHOCYTES % (AUTO) 11.2 % (20.0-44.0); MEAN CORPUSCULAR HGB CONC 31 g/dl (31.0-36.0); MEAN CORPUSCULAR VOLUME 98 fL (82-100); MONOCYTES # (AUTO) 1.3 K/uL (0.1-1.30); MONOCYTES % (AUTO) 6.3 % (2.0-12.0); NEUTROPHILS # (AUTO) 10.7 K/uL (1.8-8.9); NEUTROPHILS % (AUTO) 51.2 % (43.0-81.0); PLATELET COUNT (AUTO) 377 K/uL (150-450); RED BLOOD CELL COUNT(AUTO) 2.58 MIL/uL (4.0-5.2)
--- NOTE | 2021-11-25 06:57 | NUR ---
RN NOTE NO CHANGES IN PT CONDITION DURING SHIFT. PT IS TRACH/VENT WITH SETTINGS AT AC: 18, TV: 300, FIO2: 30%, AND PEEP 5. TOLERATING VENT SETTINGS WELL. PT IS ALERT AND ORIENTED X2, KHMER SPEAKING. ON ROUNDSMAN SHOWING NSR. NEPRO RUNNING AT 55 CC/HR. RIGHT UPPER CHEST WALL HD CATH NOTED. RIGHT UPPER ARM MIDLINE NOTED. LINE FLUSHED, PATENT, AND INTACT WITH NO SIGNS OF INFILTRATION. ALL DUE MEDS GIVEN ORDERED. PT KEPT CLEAN AND COMFORTABLE. ALL SAFETY MEASURES IMPLEMENTED. CALL LIGHT WITHIN REACH. BED ALARM ON. BED LOCKED AND IN LOWEST POSITION, SIDE RAILS UP. WILL ENDORSE TO MORNING SHIFT RN FOR YECENIA.
--- NOTE | 2021-11-25 06:57 | NUR ---
RN NOTE NO CHANGES IN PT CONDITION DURING SHIFT. PT IS TRACH/VENT WITH SETTINGS AT AC: 18, TV: 300, FIO2: 30%, AND PEEP 5. TOLERATING VENT SETTINGS WELL. PT IS ALERT AND ORIENTED X2, GREEK SPEAKING. ON TAPPER HAND SHOWING NSR. NEPRO RUNNING AT 55 CC/HR. RIGHT UPPER CHEST WALL HD CATH NOTED. RIGHT UPPER ARM MIDLINE NOTED. LINE FLUSHED, PATENT, AND INTACT WITH NO SIGNS OF INFILTRATION. ALL DUE MEDS GIVEN ORDERED. PT KEPT CLEAN AND COMFORTABLE. ALL SAFETY MEASURES IMPLEMENTED. CALL LIGHT WITHIN REACH. BED ALARM ON. BED LOCKED AND IN LOWEST POSITION, SIDE RAILS UP. WILL ENDORSE TO MORNING SHIFT RN FOR YECENIA.
[2021-11-25 07:03] LABS: EOSINOPHILS % (AUTO) 30.4 % (0.0-6.0)
--- NOTE | 2021-11-25 07:09 | NUR ---
RN NOTE PATIENT IS IN BED WITH HOB AT SEMI FOWLERS POSITION. PATIENT IS ON VENT WITH NO SIGNS OF RESPIRATORY DISTRESS. PATIENT IS AOX3. JTUBE IS IN PLACE. JANET MIDLINE IS PATENT AND INTACT. BED IS LOCKED IN THE LOWEST POSITION, 3 GUARD RAILS RAISED, CALL ALLEN WITHIN REACH, AND ALL HOSPITAL SAFETY PRECAUTIONS ARE BEING FOLLOWED. WILL CONTINUE TO MONITOR THROUGHOUT SHIFT.
[2021-11-25 07:44] LABS: CALCIUM, SERUM 9.5 mg/dL (8.5-10.1); CREATININE 3.1 mg/dL (0.6-1.3); MAGNESIUM 2.6 mg/dL (1.8-2.4); PHOSPHORUS 2.8 mg/dL (2.5-4.9)
[2021-11-25 08:00] VITALS: BP 168/69
[2021-11-25] MEDS: PANTOPRAZOLE 40 MG/PACK PACK JT SCH (08:20)
[2021-11-25] MEDS: DAKINS QUARTER STRENGTH (0.125%) 480 ML BOTTLE TOP SCH (08:20)
[2021-11-25] MEDS: CHLORHEXIDINE GLUCONATE 15 ML UDC MM SCH ×2 (08:20→21:06)
[2021-11-25] MEDS: NYSTATIN (PYXIS) 500,000 UNIT/5 ML ORAL.SUSP PO SCH ×3 (08:20→17:02)
[2021-11-25] MEDS: hydrALAZINE HCL 25 MG TABLET PO SCH (08:20)
[2021-11-25] MEDS ORDERED: LIDOCAINE 1%-EPI 1:100,000 20 ML VIAL TP ONE (09:30)
[2021-11-25] MEDS ORDERED: SILVER NITRATE APPLICATOR 1 EA BOX TP ONE (09:30)
[2021-11-25 12:00] VITALS: BP 140/66
[2021-11-25 12:05] LABS: EOSINOPHILS % (MANUAL) 32 % (0-4); LYMPHOCYTES % (MANUAL) 16 % (16-48); MONOCYTES % (MANUAL) 5 % (0-11.0); NEUTROPHILS % (MANUAL) 47 (42-76)
[2021-11-25] MEDS: HYDROMORPHONE 1 MG/1 ML DISP.SYRIN IV PRN ×3 (12:43→22:36)
[2021-11-25] MEDS ORDERED: diphenhydrAMINE HCL 50 MG CAPSULE MC SCH (13:00)
[2021-11-25] MEDS ORDERED: MAGNESIUM HYDROXIDE 30 ML UDC GT PRN (13:58)
[2021-11-25] MEDS ORDERED: MAG HYDROX/AL HYDROX/SIMETH 30 ML UDC GT PRN (13:59)
[2021-11-25] MEDS ORDERED: diphenhydrAMINE HCL 25 MG CAPSULE PO SCH (14:00)
[2021-11-25] MEDS: diphenhydrAMINE HCL ELIX 25 MG/10 ML UDC GT SCH ×2 (14:06→21:05)
[2021-11-25] MEDS ORDERED: DIATR MEGLU/DIATRIZOATE SODIUM 30 ML BOTTLE (GASTROGRAPHIN) ONE (14:51)
--- NOTE | 2021-11-25 17:39 | NUR ---
RN NOTE BLOOD SUGAR OF 117 ONE HOUR POST D50 ADMIN
--- NOTE | 2021-11-25 17:39 | NUR ---
RN NOTE BLOOD SUGAR OF 117 ONE HOUR POST D50 ADMIN
--- NOTE | 2021-11-25 18:51 | NUR ---
RN NOTE PATIENT IS IN BED WITH HOB AT SEMI FOWLERS POSITION. PATIENT IS ON VENT WITH NO SIGNS OF RESPIRATORY DISTRESS. PATIENT IS AOX3. JTUBE IS IN PLACE. JANET MIDLINE IS PATENT AND INTACT. BED IS LOCKED IN THE LOWEST POSITION, 3 GUARD RAILS RAISED, CALL ALLEN WITHIN REACH, AND ALL HOSPITAL SAFETY PRECAUTIONS ARE BEING FOLLOWED. ALL DUE MEDS GIVEN AND PATIENT REMAINED STABLE THROUGHOUT SHIFT. WILL ENDORSE TO CHILD DEVELOPMENT TEACHER RN.
--- NOTE | 2021-11-25 19:25 | NUR ---
RN NOTE PT RECEIVED IN BED. PT IS TRACH/VENT WITH SETTINGS AT AC: 18, TV: 300, FIO2: 30%, AND PEEP 5. TOLERATING VENT SETTINGS WELL. PT IS ALERT AND ORIENTED X2, MONGOLIAN SPEAKING. NEPRO RUNNING AT 55 CC/HR. PT TOLERATING WELL WITH NO RESIDUAL NOTED. RIGHT UPPER CHEST WALL HD CATH NOTED. IV ACCESS NOTED ON RIGHT UPPER ARM MIDLINE. LINE FLUSHED, PATENT, AND INTACT WITH NO SIGNS OF INFILTRATION. ALL SAFETY MEASURES IMPLEMENTED. CALL LIGHT WITHIN REACH. BED ALARM ON. BED LOCKED AND IN LOWEST POSITION, SIDE RAILS UP. WILL CONTINUE TO MONITOR AND ASSESS FOR ANY CHANGES DURING SHIFT.
--- NOTE | 2021-11-25 19:25 | NUR ---
RN NOTE PT RECEIVED IN BED. PT IS TRACH/VENT WITH SETTINGS AT AC: 18, TV: 300, FIO2: 30%, AND PEEP 5. TOLERATING VENT SETTINGS WELL. PT IS ALERT AND ORIENTED X2, WELSH SPEAKING. NEPRO RUNNING AT 55 CC/HR. PT TOLERATING WELL WITH NO RESIDUAL NOTED. RIGHT UPPER CHEST WALL HD CATH NOTED. IV ACCESS NOTED ON RIGHT UPPER ARM MIDLINE. LINE FLUSHED, PATENT, AND INTACT WITH NO SIGNS OF INFILTRATION. ALL SAFETY MEASURES IMPLEMENTED. CALL LIGHT WITHIN REACH. BED ALARM ON. BED LOCKED AND IN LOWEST POSITION, SIDE RAILS UP. WILL CONTINUE TO MONITOR AND ASSESS FOR ANY CHANGES DURING SHIFT.
[2021-11-25 20:00] VITALS: BP 180/68
[2021-11-25] MEDS ORDERED: EPOETIN ALFA-EPBX 4,000 UNIT/ML VIAL IV PRN (21:00)
[2021-11-25] MEDS: hydrALAZINE HCL 25 MG TABLET GT SCH (21:05)
[2021-11-25] MEDS ORDERED: CADEXOMER IODINE 40 GM TUBE TP PRN (22:30)
[2021-11-25] MEDS: MEROPENEM 500 MG in IV NS 0.9% 50 ML IV SCH (22:37)
--- NOTE | 2021-11-25 23:22 | NUR ---
RN NOTE BS 105. NO INSULIN COVERAGE REQUIRED PER SLIDING SCALE.
--- NOTE | 2021-11-25 23:22 | NUR ---
RN NOTE BS 105. NO INSULIN COVERAGE REQUIRED PER SLIDING SCALE.
[2021-11-26] VITALS: BP 106/42
[2021-11-26] MEDS: diphenhydrAMINE HCL ELIX 25 MG/10 ML UDC GT SCH ×5 (02:00→20:00)
--- NOTE | 2021-11-26 02:41 | NUR ---
RN NOTE PT REFUSED SCHEDULED BENADRYL AT 0200. MEDICATION WAS ALREADY OPEN AND DRAWN. UNABLE TO RETURN. CONCRETE PAVEMENT INSTALLER EM BETANCOURT.
--- NOTE | 2021-11-26 02:41 | NUR ---
RN NOTE PT REFUSED SCHEDULED BENADRYL AT 0200. MEDICATION WAS ALREADY OPEN AND DRAWN. UNABLE TO RETURN. ROOM SERVICE SUPERVISOR EM BETANCOURT.
[2021-11-26] MEDS: ONDANSETRON HCL/PF 4 MG/2 ML VIAL IVP PRN (02:42)
[2021-11-26 04:00] VITALS: BP 113/42
[2021-11-26] MEDS: NEPRO 1,000 ML BOTTLE GT PRN (04:51)
[2021-11-26] MEDS: BLOOD SUGAR DIAGNOSTIC 1 EACH STRIP IN SCH ×3 (05:12→17:08)
--- NOTE | 2021-11-26 05:12 | NUR ---
RN NOTE BS 92. NO INSULIN COVERAGE REQUIRED PER SLIDING SCALE.
--- NOTE | 2021-11-26 05:12 | NUR ---
RN NOTE BS 92. NO INSULIN COVERAGE REQUIRED PER SLIDING SCALE.
[2021-11-26] MEDS: HYDROMORPHONE 1 MG/1 ML DISP.SYRIN IV PRN ×3 (06:04→23:57)
--- NOTE | 2021-11-26 06:37 | NUR ---
RN NOTE NO CHANGES IN PT CONDITION DURING SHIFT. PT IS TRACH/VENT AND TOLERATING VENT SETTINGS WELL. PT IS ALERT AND ORIENTED X2, VIETNAMESE SPEAKING. NEPRO RUNNING AT 55 CC/HR. PT TOLERATING WELL WITH NO RESIDUAL NOTED. RIGHT UPPER CHEST WALL HD CATH NOTED. IV ACCESS NOTED ON RIGHT UPPER ARM MIDLINE. LINE FLUSHED, PATENT, AND INTACT WITH NO SIGNS OF INFILTRATION. ALL DUE MEDS GIVEN ORDERED. PT KEPT CLEAN AND COMFORTABLE. ALL SAFETY MEASURES IMPLEMENTED. CALL LIGHT WITHIN REACH. BED ALARM ON. BED LOCKED AND IN LOWEST POSITION, SIDE RAILS UP. WILL ENDORSE TO MORNING SHIFT RN FOR YECENIA.
--- NOTE | 2021-11-26 06:37 | NUR ---
RN NOTE NO CHANGES IN PT CONDITION DURING SHIFT. PT IS TRACH/VENT AND TOLERATING VENT SETTINGS WELL. PT IS ALERT AND ORIENTED X2, GREEK SPEAKING. NEPRO RUNNING AT 55 CC/HR. PT TOLERATING WELL WITH NO RESIDUAL NOTED. RIGHT UPPER CHEST WALL HD CATH NOTED. IV ACCESS NOTED ON RIGHT UPPER ARM MIDLINE. LINE FLUSHED, PATENT, AND INTACT WITH NO SIGNS OF INFILTRATION. ALL DUE MEDS GIVEN ORDERED. PT KEPT CLEAN AND COMFORTABLE. ALL SAFETY MEASURES IMPLEMENTED. CALL LIGHT WITHIN REACH. BED ALARM ON. BED LOCKED AND IN LOWEST POSITION, SIDE RAILS UP. WILL ENDORSE TO MORNING SHIFT RN FOR YECENIA.
[2021-11-26 06:56] LABS: CALCIUM, SERUM 8.9 mg/dL (8.5-10.1); CREATININE 2.3 mg/dL (0.6-1.3); MAGNESIUM 2.4 mg/dL (1.8-2.4); PHOSPHORUS 2.3 mg/dL (2.5-4.9); POTASSIUM 3.8 mmol/L (3.5-5.1)
--- NOTE | 2021-11-26 07:06 | NUR ---
RN NOTE PATIENT IS IN BED WITH HOB AT SEMI FOWLERS POSITION. PATIENT IS ON VENT WITH NO SIGNS OF RESPIRATORY DISTRESS. PATIENT IS AOX2. JTUBE IS INTACT. JANET MIDLINE IS PATENT AND INTACT. BED IS LOCKED IN THE LOWEST POSITION, 3 GUARD RAILS RAISED, CALL ALLEN WITHIN REACH, AND ALL HOSPITAL SAFETY PRECAUTIONS ARE BEING FOLLOWED. WILL CONTINUE TO MONITOR THROUGHOUT SHIFT.
[2021-11-26 07:07] LABS: BASOPHILS # (AUTO) 0.2 K/uL (0.0-0.2); BASOPHILS % (AUTO) 1.3 % (0.0-2.0); EOSINOPHILS % (AUTO) 18.6 % (0.0-6.0); HEMATOCRIT 22 % (33-45); HEMOGLOBIN 7.1 g/dL (11.5-14.8); LYMPHOCYTES # (AUTO) 2.1 K/uL (0.8-4.8); LYMPHOCYTES % (AUTO) 11.3 % (20.0-44.0); MEAN CORPUSCULAR HGB CONC 32 g/dl (31.0-36.0); MEAN CORPUSCULAR VOLUME 96 fL (82-100); MONOCYTES # (AUTO) 1.5 K/uL (0.1-1.30); MONOCYTES % (AUTO) 7.9 % (2.0-12.0); NEUTROPHILS # (AUTO) 11.5 K/uL (1.8-8.9); NEUTROPHILS % (AUTO) 60.9 % (43.0-81.0); PLATELET COUNT (AUTO) 344 K/uL (150-450); RED BLOOD CELL COUNT(AUTO) 2.29 MIL/uL (4.0-5.2); WHITE BLOOD COUNT (AUTO) 18.9 K/uL (4.3-11.0)
[2021-11-26 08:00] VITALS: BP 135/73
[2021-11-26] MEDS: NYSTATIN (PYXIS) 500,000 UNIT/5 ML ORAL.SUSP PO SCH ×3 (08:02→16:46)
[2021-11-26] MEDS: ACETAMINOPHEN 650 MG/20.3 ML UDC JT PRN (08:02)
[2021-11-26] MEDS: PANTOPRAZOLE 40 MG/PACK PACK JT SCH (08:02)
[2021-11-26] MEDS: CHLORHEXIDINE GLUCONATE 15 ML UDC MM SCH ×2 (08:03→21:43)
[2021-11-26] MEDS: hydrALAZINE HCL 25 MG TABLET GT SCH ×2 (08:03→21:43)
[2021-11-26] MEDS: DAKINS QUARTER STRENGTH (0.125%) 480 ML BOTTLE TOP SCH (08:03)
[2021-11-26] MEDS: FLUCONAZOLE (100 MG) 100 MG TABLET PO SCH (11:21)
[2021-11-26 12:00] VITALS: BP 137/59
[2021-11-26] MEDS ORDERED: NEUTRA PHOS 1 POWD.PACKET NG ONE (16:30)
--- NOTE | 2021-11-26 17:08 | NUR ---
RN NOTE BLOOD SUGAR OF 93 NO INSULIN COVERAGE NEEDED.
--- NOTE | 2021-11-26 17:08 | NUR ---
RN NOTE BLOOD SUGAR OF 93 NO INSULIN COVERAGE NEEDED.
--- NOTE | 2021-11-26 18:33 | NUR ---
RN NOTE PATIENT IS IN BED WITH HOB AT SEMI FOWLERS POSITION. PATIENT IS ON VENT WITH NO SIGNS OF RESPIRATORY DISTRESS. PATIENT IS AOX2. JTUBE IS INTACT. JANET MIDLINE IS PATENT AND INTACT. BED IS LOCKED IN THE LOWEST POSITION, 3 GUARD RAILS RAISED, CALL ALLEN WITHIN REACH, AND ALL HOSPITAL SAFETY PRECAUTIONS ARE BEING FOLLOWED. ALL DUE MEDS GIVEN AND PATIENT REMAINED STABLE THROUGHOUT SHIFT. WILL ENDORSE TO SHOES HAND SEWER RN.
--- NOTE | 2021-11-26 18:33 | NUR ---
RN NOTE PATIENT IS IN BED WITH HOB AT SEMI FOWLERS POSITION. PATIENT IS ON VENT WITH NO SIGNS OF RESPIRATORY DISTRESS. PATIENT IS AOX2. JTUBE IS INTACT. JANET MIDLINE IS PATENT AND INTACT. BED IS LOCKED IN THE LOWEST POSITION, 3 GUARD RAILS RAISED, CALL ALLEN WITHIN REACH, AND ALL HOSPITAL SAFETY PRECAUTIONS ARE BEING FOLLOWED. ALL DUE MEDS GIVEN AND PATIENT REMAINED STABLE THROUGHOUT SHIFT. WILL ENDORSE TO WELDING PROCESS SPECIALIST RN.
--- NOTE | 2021-11-26 19:20 | NUR ---
RN NOTE PT RECEIVED IN BED. PT IS TRACH/VENT WITH SETTINGS AT AC: 18, TV: 300, FIO2: 30%, AND PEEP 5. TOLERATING VENT SETTINGS WELL. PT IS ALERT AND ORIENTED X2, ROMANIAN SPEAKING. NEPRO RUNNING AT 55 CC/HR. PT TOLERATING WELL WITH NO RESIDUAL NOTED. RIGHT UPPER CHEST WALL HD CATH NOTED. IV ACCESS NOTED ON RIGHT UPPER ARM MIDLINE. LINE FLUSHED, PATENT, AND INTACT WITH NO SIGNS OF INFILTRATION. ALL SAFETY MEASURES IMPLEMENTED. CALL LIGHT WITHIN REACH. BED ALARM ON. BED LOCKED AND IN LOWEST POSITION, SIDE RAILS UP. WILL CONTINUE TO MONITOR AND ASSESS FOR ANY CHANGES DURING SHIFT.
--- NOTE | 2021-11-26 19:20 | NUR ---
RN NOTE PT RECEIVED IN BED. PT IS TRACH/VENT WITH SETTINGS AT AC: 18, TV: 300, FIO2: 30%, AND PEEP 5. TOLERATING VENT SETTINGS WELL. PT IS ALERT AND ORIENTED X2, SERBIAN SPEAKING. NEPRO RUNNING AT 55 CC/HR. PT TOLERATING WELL WITH NO RESIDUAL NOTED. RIGHT UPPER CHEST WALL HD CATH NOTED. IV ACCESS NOTED ON RIGHT UPPER ARM MIDLINE. LINE FLUSHED, PATENT, AND INTACT WITH NO SIGNS OF INFILTRATION. ALL SAFETY MEASURES IMPLEMENTED. CALL LIGHT WITHIN REACH. BED ALARM ON. BED LOCKED AND IN LOWEST POSITION, SIDE RAILS UP. WILL CONTINUE TO MONITOR AND ASSESS FOR ANY CHANGES DURING SHIFT.
[2021-11-26 20:00] VITALS: BP 162/70
[2021-11-26] MEDS: MEROPENEM 500 MG in IV NS 0.9% 50 ML IV SCH (21:43)
[2021-11-27] VITALS (9 sets, daily range): BP systolic 132–182; BP diastolic 57–88
[2021-11-27] MEDS: BLOOD SUGAR DIAGNOSTIC 1 EACH STRIP IN SCH ×4 (00:12→18:01)
--- NOTE | 2021-11-27 00:12 | NUR ---
RN NOTE PT BLOOD SUGAR 64. NO INSULIN OR D50 REQUIRED PER SLIDING SCALE. WILL CONTINUE TO MONITOR AND ASSESS FOR ANY SYMPTOMS OF HYPOGLYCEMIA.
--- NOTE | 2021-11-27 00:12 | NUR ---
RN NOTE PT BLOOD SUGAR 64. NO INSULIN OR D50 REQUIRED PER SLIDING SCALE. WILL CONTINUE TO MONITOR AND ASSESS FOR ANY SYMPTOMS OF HYPOGLYCEMIA.
[2021-11-27] MEDS: hydrALAZINE HCL IV 20 MG VIAL IV PRN (01:57)
--- NOTE | 2021-11-27 02:00 | NUR ---
RN NOTE PT TRANSFERRED TO 3W FOR YECENIA. REPORT GIVEN TO JADON.
--- NOTE | 2021-11-27 02:00 | NUR ---
RN NOTE PT TRANSFERRED TO 3W FOR YECENIA. REPORT GIVEN TO JADON.
--- NOTE | 2021-11-27 02:10 | NUR ---
RN NOTES Received patient from [facility] ,patient is on vent dependent , SR on tele monitor, noticed G-tube was replaced with romero catheter, skin assessment done, not in distress, siderailsupx2, will continue to monitor
[2021-11-27] MEDS: NEPRO 1,000 ML BOTTLE GT PRN (02:34)
[2021-11-27] MEDS ORDERED: diphenhydrAMINE HCL ELIX 25 MG/10 ML UDC ONE (03:19)
[2021-11-27] MEDS: diphenhydrAMINE HCL ELIX 25 MG/10 ML UDC GT SCH ×4 (03:50→20:33)
--- NOTE | 2021-11-27 04:00 | NUR ---
RN NOTES COMPLAINED OF SACRAL WOUND PAIN- DILAUDID 0.5MG IV GIVEN ORDERED, V/S STABLE
--- NOTE | 2021-11-27 04:00 | NUR ---
RN NOTES COMPLAINED OF SACRAL WOUND PAIN- DILAUDID 0.5MG IV GIVEN ORDERED, V/S STABLE
[2021-11-27] MEDS: HYDROMORPHONE 1 MG/1 ML DISP.SYRIN IV PRN ×2 (04:01→08:43)
[2021-11-27] MEDS: DEXTROSE 50%-WATER 50 ML DISP.SYRIN IV PRN (05:24)
--- NOTE | 2021-11-27 05:30 | NUR ---
RN NOTES BLOOD SUGAR-51 D50 GIVEN WILL CONTINUE TO MONITOR
--- NOTE | 2021-11-27 05:30 | NUR ---
RN NOTES BLOOD SUGAR-51 D50 GIVEN WILL CONTINUE TO MONITOR
--- NOTE | 2021-11-27 06:30 | NUR ---
RN NOTES BLOOD SUGAR WENT UP TO 124 AFTER GIVING D50, SPOKE TO SISTER ALBERTINA TURK AND GOT A TELEPHONE CONSENT FOR HER SACRAL DEBRIDEMENT, PATIENT IS NOT IN DISTRESS, NO PAIN NOTED, MORNING CARE RENDERED, SWETHAUPX2, PT. NEEDS ATTENDED
--- NOTE | 2021-11-27 07:34 | NUR ---
RN Note Patient received in bed, AO x 2, St Helen[place] speaking, able to responds all stimuli. Respiratory even and unlabored with ventilator, no SOB observed. Skin is warm to touch, keep clean/dry. Patient does no appears pain or discomfort this morning. Call light within reach, kept elevated HOB and lower bed position for safety. Will continue to monitor.
--- NOTE | 2021-11-27 07:34 | NUR ---
RN Note Patient received in bed, AO x 2, Andorran speaking, able to responds all stimuli. Respiratory even and unlabored with ventilator, no SOB observed. Skin is warm to touch, keep clean/dry. Patient does no appears pain or discomfort this morning. Call light within reach, kept elevated HOB and lower bed position for safety. Will continue to monitor.
[2021-11-27 07:46] LABS: BASOPHILS # (AUTO) 0.1 K/uL (0.0-0.2); BASOPHILS % (AUTO) 0.6 % (0.0-2.0); HEMATOCRIT 23 % (33-45); HEMOGLOBIN 7.4 g/dL (11.5-14.8); LYMPHOCYTES # (AUTO) 2.5 K/uL (0.8-4.8); LYMPHOCYTES % (AUTO) 10.9 % (20.0-44.0); MEAN CORPUSCULAR HGB CONC 32 g/dl (31.0-36.0); MEAN CORPUSCULAR VOLUME 95 fL (82-100); MONOCYTES # (AUTO) 1.6 K/uL (0.1-1.30); MONOCYTES % (AUTO) 7.1 % (2.0-12.0); NEUTROPHILS # (AUTO) 11.4 K/uL (1.8-8.9); NEUTROPHILS % (AUTO) 49.3 % (43.0-81.0); PLATELET COUNT (AUTO) 393 K/uL (150-450); RED BLOOD CELL COUNT(AUTO) 2.43 MIL/uL (4.0-5.2); WHITE BLOOD COUNT (AUTO) 23.1 K/uL (4.3-11.0)
[2021-11-27 08:02] LABS: EOSINOPHILS % (AUTO) 32.1 % (0.0-6.0)
[2021-11-27] MEDS: hydrALAZINE HCL 25 MG TABLET GT SCH ×2 (08:34→21:05)
[2021-11-27] MEDS: NYSTATIN (PYXIS) 500,000 UNIT/5 ML ORAL.SUSP PO SCH ×3 (08:35→18:01)
[2021-11-27] MEDS: PANTOPRAZOLE 40 MG/PACK PACK JT SCH (08:35)
[2021-11-27] MEDS: FLUCONAZOLE (100 MG) 100 MG TABLET PO SCH (08:35)
[2021-11-27] MEDS: CHLORHEXIDINE GLUCONATE 15 ML UDC MM SCH ×2 (08:35→21:05)
--- NOTE | 2021-11-27 09:00 | NUR ---
Hgb level 7.4 this morning, made aware and NNO. Will continue to monitor.
--- NOTE | 2021-11-27 09:00 | NUR ---
Hgb level 7.4 this morning, made aware and NNO. Will continue to monitor.
[2021-11-27] MEDS: DAKINS QUARTER STRENGTH (0.125%) 480 ML BOTTLE TOP SCH (10:57)
[2021-11-27 11:38] LABS: CALCIUM, SERUM 9.3 mg/dL (8.5-10.1); CREATININE 2.9 mg/dL (0.6-1.3); MAGNESIUM 2.6 mg/dL (1.8-2.4); PHOSPHORUS 3.5 mg/dL (2.5-4.9); POTASSIUM 3.9 mmol/L (3.5-5.1)
[2021-11-27] MEDS: LINEZOLID 600 MG TABLET PO SCH ×2 (13:24→21:05)
[2021-11-27] MEDS: CEFTAZIDIME 1 G in IV D5W 50 ML IV SCH (13:46)
[2021-11-27] MEDS ORDERED: EPOETIN ALFA-EPBX 4,000 UNIT/ML VIAL IV PRN (17:30)
[2021-11-27] MEDS ORDERED: QUETIAPINE FUMARATE 25 MG TABLET ONE (18:20)
--- NOTE | 2021-11-27 18:49 | NUR ---
RN Closing Note Patient resting in bed, AO x 2. Respiratory even and unlabored on ventilator. Does no appears pain or discomfort. Skin is warm to touch, keep clean/dry, patient done debridement on sacral decubitus and tolerated. Keep running g tube feeing, no residual observed. Kept elevated HOB for airway and lower position of the bed for safety. Call light within reach, all needs met. will endorse maintenance technician 3rd shift.
--- NOTE | 2021-11-27 18:49 | NUR ---
RN Closing Note Patient resting in bed, AO x 2. Respiratory even and unlabored on ventilator. Does no appears pain or discomfort. Skin is warm to touch, keep clean/dry, patient done debridement on sacral decubitus and tolerated. Keep running g tube feeing, no residual observed. Kept elevated HOB for airway and lower position of the bed for safety. Call light within reach, all needs met. will endorse production supervisor off shift.
--- NOTE | 2021-11-27 20:13 | NUR ---
BRICK PAVER OPENING NOTES: RECEIVED PATIENT AWAKE IN BED, BED IN LOW POSITION CALL LIGHTS WITHIN REACH, NO COMPLAIN OF PAIN AND DISCOMFORT AT THIS TIME, PATIENT ON TRACHEOSTOMY,NO SOB OR ANY RESPIRATORY DISTRESS WAS OBSERVED, O2 SATURATION AT 96% ON GTUBE FEEDING NEPHRO@55ML PER HOUR INFUSING WELL, WITH IV LINE AT JANET MIDLINE SL, PATIENT WITH RIGHT CHEST WALL PERMCATH, WITH SCHEDULE DIALYSIS AT [facility], ON TLEE MONITORING SR-93, PATIENT KEPT CLEAN AND DRY, ALL NEEDS MET WILL CONTINUE TO MONITOR.
--- NOTE | 2021-11-27 20:13 | NUR ---
[employer] HUMANITIES CHAIR OPENING NOTES: RECEIVED PATIENT AWAKE IN BED, BED IN LOW POSITION CALL LIGHTS WITHIN REACH, NO COMPLAIN OF PAIN AND DISCOMFORT AT THIS TIME, PATIENT ON TRACHEOSTOMY,NO SOB OR ANY RESPIRATORY DISTRESS WAS OBSERVED, O2 SATURATION AT 96% ON GTUBE FEEDING NEPHRO@55ML PER HOUR INFUSING WELL, WITH IV LINE AT JANET MIDLINE SL, PATIENT WITH RIGHT CHEST WALL PERMCATH, WITH SCHEDULE DIALYSIS AT [facility], ON TLEE MONITORING SR-93, PATIENT KEPT CLEAN AND DRY, ALL NEEDS MET WILL CONTINUE TO MONITOR.
[2021-11-27] MEDS: ONDANSETRON HCL/PF 4 MG/2 ML VIAL IVP PRN (21:38)
[2021-11-27] MEDS: HYDROMORPHONE HCL 2 MG TABLET JT PRN (22:45)
[2021-11-27 23:07] LABS: EOSINOPHILS % (MANUAL) 25 % (0-4); LYMPHOCYTES % (MANUAL) 11 % (16-48); MONOCYTES % (MANUAL) 2 % (0-11.0); NEUTROPHILS % (MANUAL) 62 (42-76)
[2021-11-28] VITALS (7 sets, daily range): BP systolic 128–182; BP diastolic 42–88
[2021-11-28] MEDS: BLOOD SUGAR DIAGNOSTIC 1 EACH STRIP IN SCH ×4 (00:21→17:43)
[2021-11-28] MEDS: diphenhydrAMINE HCL ELIX 25 MG/10 ML UDC GT SCH ×4 (02:05→20:46)
[2021-11-28] MEDS: NEPRO 1,000 ML BOTTLE GT SCH (04:29)
--- NOTE | 2021-11-28 05:59 | NUR ---
STEM LEAD FORMER CLOSING NOTES: PATIENT SLEEP IN BED COMFORTABLY, BED IN LOW POSITION, CALL LIGHTS WITHIN REACH, NO COMPLAIN OF PAIN AN DISCOMFORT AT THIS TIME, PATIENT IS A/O X2 ON BED REST, WITH GTUBE FEEDING NEPHRO AT 50ML PER HOUR INFUSING WELL, WITH IV LINE AT JANET ML, SL, WITH RIGHT CHEST WALL HD CATH, PATINE TON MECHANICAL VENT NO SOB OR ANY RESP DISTRESS OBSERVED, PATIENT KEPT CLEAN AND DRY, ALL NEEDS MET ENDORSE TO INCOMING SHIFT.
--- NOTE | 2021-11-28 06:40 | NUR ---
RN NOTES: BS-100- NO INSULIN GIVEN OUT OF PARAMETER
--- NOTE | 2021-11-28 06:40 | NUR ---
RN NOTES: BS-100- NO INSULIN GIVEN OUT OF PARAMETER
--- NOTE | 2021-11-28 07:30 | NUR ---
CONTINUITY CLERK OPENING NOTES: RECEIVED PATIENT AWAKE IN BED, NO COMPLAINTS OF PAIN AND DISCOMFORT AT THIS TIME, S/SX OF ACUTE DISTRESS NOTED. O2 SATURATION AT 96% ON G TUBE FEEDING NEPHRO@55ML PER HOUR INFUSING WELL, WITH IV LINE AT JANET MIDLINE SL, PATIENT WITH RIGHT CHEST WALL PERMCATH, WITH SCHEDULED DIALYSIS TODAY, ON TLEE MONITORING SR-90'S. SAFETY PRECAUTIONS IN PLACE: BED ON LOWEST LOCKED POSITION, SIDE RAILS UP X 2, CALL LIGHT WITHIN EASY REACH. WILL CONTINUE TO MONITOR ACCORDINGLY.
[2021-11-28] MEDS: CHLORHEXIDINE GLUCONATE 15 ML UDC MM SCH ×2 (08:55→20:51)
[2021-11-28] MEDS: NYSTATIN (PYXIS) 500,000 UNIT/5 ML ORAL.SUSP PO SCH ×3 (08:55→16:30)
[2021-11-28] MEDS: PANTOPRAZOLE 40 MG/PACK PACK JT SCH (08:55)
[2021-11-28] MEDS: FLUCONAZOLE (100 MG) 100 MG TABLET PO SCH (08:56)
[2021-11-28] MEDS: LINEZOLID 600 MG TABLET PO SCH ×2 (08:56→20:47)
[2021-11-28] MEDS: hydrALAZINE HCL 25 MG TABLET GT SCH ×2 (08:58→20:47)
[2021-11-28 09:00] LABS: IRON, SERUM 35 ug/dl (50-175); TOTAL IRON BINDING CAPACITY 116 ug/dl (250-450)
[2021-11-28] MEDS: DAKINS QUARTER STRENGTH (0.125%) 480 ML BOTTLE TOP SCH (09:03)
[2021-11-28] MEDS: HYDROMORPHONE HCL 2 MG TABLET JT PRN (09:40)
--- NOTE | 2021-11-28 11:30 | NUR ---
RN NOTES S/P HEMODIALYSIS, 1L OUT, PATIENT TOLERATED PROCEDURE WELL.
--- NOTE | 2021-11-28 11:30 | NUR ---
RN NOTES S/P HEMODIALYSIS, 1L OUT, PATIENT TOLERATED PROCEDURE WELL.
[2021-11-28] MEDS: CEFTAZIDIME 1 G in IV D5W 50 ML IV SCH (12:24)
--- NOTE | 2021-11-28 18:34 | NUR ---
MOBILE WEB APPLICATION DEVELOPER OPENING NOTES: PATIENT AWAKE IN BED, NO COMPLAINTS OF PAIN AND DISCOMFORT AT THIS TIME, NO S/SX OF ACUTE DISTRESS NOTED. O2 SATURATION AT 96% ON G TUBE FEEDING NEPHRO@55ML PER HOUR TOLERATING WELL, NO RESIDUAL NOTED, WITH IV LINE AT JANET MIDLINE SL, PATIENT WITH RIGHT CHEST WALL PERMCATH,S/P DIALYSIS TODAY, ON TELE MONITORING SR-80'S. SAFETY PRECAUTIONS IN PLACE: BED ON LOWEST LOCKED POSITION, SIDE RAILS UP X 2, CALL LIGHT WITHIN EASY REACH. ALL NEEDS ATTENDED AND MET, DUE MEDS GIVEN ORDERED. WILL ENDORSED TO ONCOMING SHIFT FOR YECENIA. Addendum: 11/29/21 at 1244 by JUDITH WHITE RN CORRECTION: ABOVE NOTES IS CLOSING NOTES FOR 11/28/2021.
[2021-11-28] MEDS: HYDROMORPHONE 1 MG/1 ML DISP.SYRIN IV PRN (20:03)
[2021-11-29] VITALS (7 sets, daily range): BP systolic 128–197; BP diastolic 49–89
[2021-11-29] MEDS: BLOOD SUGAR DIAGNOSTIC 1 EACH STRIP IN SCH ×4 (00:01→16:47)
[2021-11-29] MEDS: diphenhydrAMINE HCL ELIX 25 MG/10 ML UDC GT SCH ×4 (02:08→20:21)
[2021-11-29] MEDS: NEPRO 1,000 ML BOTTLE GT SCH (03:58)
[2021-11-29] MEDS: HYDROMORPHONE 1 MG/1 ML DISP.SYRIN IV PRN ×3 (04:41→22:32)
--- NOTE | 2021-11-29 06:50 | NUR ---
TELE/RN NOTES PT AWAKE IN BED, AWAKE/ALERT, MAKES NEEDS KNOWN BY MOUTHING WORDS AND GESTURES. ON VENT/TRACH AND EDWARDO.SETTINGS WELL. IV ACCESS ON JANET MIDLINE INTACT/PATENT/FLUSHES WELL. HD ACCESS ON RCW INTACT WITH DRESSING C/D/I. TELE MONITOR READING SR, HR 82. PT IN NO ACUTE DISTRESS. SAFETY MEASURES MAINTAINED.
[2021-11-29 06:51] LABS: BASOPHILS # (AUTO) 0.1 K/uL (0.0-0.2); BASOPHILS % (AUTO) 0.8 % (0.0-2.0); EOSINOPHILS % (AUTO) 21.9 % (0.0-6.0); HEMATOCRIT 22 % (33-45); HEMOGLOBIN 7.2 g/dL (11.5-14.8); LYMPHOCYTES # (AUTO) 1.8 K/uL (0.8-4.8); LYMPHOCYTES % (AUTO) 10.7 % (20.0-44.0); MEAN CORPUSCULAR HGB CONC 33 g/dl (31.0-36.0); MEAN CORPUSCULAR VOLUME 94 fL (82-100); MONOCYTES # (AUTO) 1.1 K/uL (0.1-1.30); MONOCYTES % (AUTO) 6.7 % (2.0-12.0); NEUTROPHILS # (AUTO) 10.2 K/uL (1.8-8.9); NEUTROPHILS % (AUTO) 59.9 % (43.0-81.0); PLATELET COUNT (AUTO) 397 K/uL (150-450); RED BLOOD CELL COUNT(AUTO) 2.36 MIL/uL (4.0-5.2)
[2021-11-29 07:26] LABS: CALCIUM, SERUM 9.1 mg/dL (8.5-10.1); CREATININE 2.1 mg/dL (0.6-1.3); POTASSIUM 3.8 mmol/L (3.5-5.1)
--- NOTE | 2021-11-29 07:30 | NUR ---
CANE STRIPPER OPENING NOTES: RECEIVED PATIENT AWAKE IN BED, NO COMPLAINTS OF PAIN AND DISCOMFORT AT THIS TIME, S/SX OF ACUTE DISTRESS NOTED. O2 SATURATION AT 96% ON G TUBE FEEDING NEPHRO@55ML PER HOUR INFUSING WELL, WITH IV LINE AT JANET MIDLINE SL, PATIENT WITH RIGHT CHEST WALL PERMCATH, ON TELE SHOWING SR HR AT 85. SAFETY PRECAUTIONS IN PLACE: BED ON LOWEST LOCKED POSITION, SIDE RAILS UP X 2, CALL LIGHT WITHIN EASY REACH. WILL CONTINUE TO MONITOR ACCORDINGLY.
[2021-11-29] MEDS: CHLORHEXIDINE GLUCONATE 15 ML UDC MM SCH ×2 (08:13→20:26)
[2021-11-29] MEDS: PANTOPRAZOLE 40 MG/PACK PACK JT SCH (08:13)
[2021-11-29] MEDS: hydrALAZINE HCL 25 MG TABLET GT SCH ×2 (08:13→20:22)
[2021-11-29] MEDS: FLUCONAZOLE (100 MG) 100 MG TABLET PO SCH (08:13)
[2021-11-29] MEDS: LINEZOLID 600 MG TABLET PO SCH ×2 (08:13→21:27)
[2021-11-29] MEDS: DAKINS QUARTER STRENGTH (0.125%) 480 ML BOTTLE TOP SCH (08:14)
--- NOTE | 2021-11-29 11:22 | NUR ---
RAJNI NOTES PATIENT HAS C/O LEFT HIP PAIN WITH PAIN SCALE OF 9/10. DUE MORPHINE GIVEN ORDERED. Addendum: 11/29/21 at 1218 by JUDITH WHITE RN CORRECTION PATIENT COMPLAINED OF SACRAL PAIN WITH PAIN SCALE OF 9/10. DUE DILAUDID GIVEN ORDERED.
[2021-11-29] MEDS: CEFTAZIDIME 1 G in IV D5W 50 ML IV SCH (12:07)
[2021-11-29 14:04] LABS: EOSINOPHILS % (MANUAL) 24 % (0-4); LYMPHOCYTES % (MANUAL) 12 % (16-48); MONOCYTES % (MANUAL) 6 % (0-11.0); NEUTROPHILS % (MANUAL) 58 (42-76)
[2021-11-29] MEDS: hydrALAZINE HCL IV 20 MG VIAL IV PRN (16:09)
--- NOTE | 2021-11-29 18:27 | NUR ---
DATABASE MANAGEMENT SYSTEM SPECIALIST CLOSING NOTES: PATIENT AWAKE IN BED, NO COMPLAINTS OF PAIN AND DISCOMFORT AT THIS TIME, NO S/SX OF ACUTE DISTRESS NOTED. O2 SATURATION AT 96% ON G TUBE FEEDING NEPHRO@55ML PER HOUR TOLERATING WELL, NO RESIDUAL NOTED, WITH IV LINE AT JANET MIDLINE SL, PATIENT WITH RIGHT CHEST WALL PERMCATH, ON TELE MONITORING SR-80'S. SAFETY PRECAUTIONS IN PLACE: BED ON LOWEST LOCKED POSITION, SIDE RAILS UP X 2, CALL LIGHT WITHIN EASY REACH. ALL NEEDS ATTENDED AND MET, DUE MEDS GIVEN ORDERED. WILL ENDORSED TO ONCOMING SHIFT FOR YECENIA.
--- NOTE | 2021-11-29 19:30 | NUR ---
ASSEMBLER MOLDED FRAMES OPENING NOTES RECEIVED PATIENT AWAKE IN BED, NO COMPLAINTS OF PAIN OR DISCOMFORT AT THIS TIME. PT ON VENT AND TOLERATING WELL, NO S/S OF DISTRESS OR SOB NOTED, BREATHING EVEN AND UNLABORED, SPO2: 100%. PT ON EXTERNAL HEALTH RECORDS TECHNOLOGY TEACHER READING SINUS RHYTHM, HR: 85. PT ON GTUBE FEEDING, NO RESIDUAL NOTED, NEPRO RUNNING @ 55 ML/HR. JANET MIDLINE INTACT AND FLUSHING WELL. RIGHT CHEST WALL HD CATH NOTED. SAFETY MEASURES IN PLACE: CALL LIGHT WITHIN REACH, SIDE RAILS UP X 3, BED LOCKED IN LOW POSITION, HOB ELEVATED TO 30 DEGREES, BED ALARM ON. WILL CONTINUE TO MONITOR PATIENT
--- NOTE | 2021-11-29 19:30 | NUR ---
SHIP'S SURVEYOR OPENING NOTES RECEIVED PATIENT AWAKE IN BED, NO COMPLAINTS OF PAIN OR DISCOMFORT AT THIS TIME. PT ON VENT AND TOLERATING WELL, NO S/S OF DISTRESS OR SOB NOTED, BREATHING EVEN AND UNLABORED, SPO2: 100%. PT ON EXTERNAL LABORATORY APPARATUS GLASS GRINDER READING SINUS RHYTHM, HR: 85. PT ON GTUBE FEEDING, NO RESIDUAL NOTED, NEPRO RUNNING @ 55 ML/HR. JANET MIDLINE INTACT AND FLUSHING WELL. RIGHT CHEST WALL HD CATH NOTED. SAFETY MEASURES IN PLACE: CALL LIGHT WITHIN REACH, SIDE RAILS UP X 3, BED LOCKED IN LOW POSITION, HOB ELEVATED TO 30 DEGREES, BED ALARM ON. WILL CONTINUE TO MONITOR PATIENT
--- NOTE | 2021-11-29 22:35 | NUR ---
WASHER MACHINE NOTE PATIENT COMPLAINING OF SACRAL PAIN, DILAUDID 0.5 MG IV GIVEN ORDERED. WILL CONTINUE TO MONITOR PATIENT
--- NOTE | 2021-11-29 22:35 | NUR ---
CRUISE AGENT NOTE PATIENT COMPLAINING OF SACRAL PAIN, DILAUDID 0.5 MG IV GIVEN ORDERED. WILL CONTINUE TO MONITOR PATIENT
[2021-11-30] VITALS: BP 159/71
[2021-11-30] MEDS: BLOOD SUGAR DIAGNOSTIC 1 EACH STRIP IN SCH ×4 (00:30→17:26)
[2021-11-30] MEDS: diphenhydrAMINE HCL ELIX 25 MG/10 ML UDC GT SCH ×4 (02:25→20:00)
[2021-11-30 04:00] VITALS: BP 169/78
[2021-11-30] MEDS: hydrALAZINE HCL IV 20 MG VIAL IV PRN ×2 (04:04→22:40)
[2021-11-30] MEDS: HYDROMORPHONE 1 MG/1 ML DISP.SYRIN IV PRN ×2 (06:13→19:45)
--- NOTE | 2021-11-30 06:15 | NUR ---
SHEEP HERDER NOTE PATIENT COMPLAINING OF SACRAL PAIN, DILAUDID 0.5 MG IV GIVEN ORDERED. WILL CONTINUE TO MONITOR PATIENT
--- NOTE | 2021-11-30 06:15 | NUR ---
SHOVEL LOG LOADER OPERATOR NOTE PATIENT COMPLAINING OF SACRAL PAIN, DILAUDID 0.5 MG IV GIVEN ORDERED. WILL CONTINUE TO MONITOR PATIENT
[2021-11-30 07:23] LABS: BASOPHILS # (AUTO) 0.1 K/uL (0.0-0.2); BASOPHILS % (AUTO) 0.8 % (0.0-2.0); EOSINOPHILS % (AUTO) 19.1 % (0.0-6.0); HEMATOCRIT 22 % (33-45); HEMOGLOBIN 7.2 g/dL (11.5-14.8); LYMPHOCYTES % (AUTO) 11.5 % (20.0-44.0); MEAN CORPUSCULAR HGB CONC 32 g/dl (31.0-36.0); MEAN CORPUSCULAR VOLUME 94 fL (82-100); MONOCYTES # (AUTO) 1.2 K/uL (0.1-1.30); MONOCYTES % (AUTO) 7.2 % (2.0-12.0); NEUTROPHILS # (AUTO) 10.6 K/uL (1.8-8.9); NEUTROPHILS % (AUTO) 61.4 % (43.0-81.0); PLATELET COUNT (AUTO) 431 K/uL (150-450); RED BLOOD CELL COUNT(AUTO) 2.36 MIL/uL (4.0-5.2); WHITE BLOOD COUNT (AUTO) 17.3 K/uL (4.3-11.0)
[2021-11-30 07:36] LABS: CALCIUM, SERUM 9.3 mg/dL (8.5-10.1); CREATININE 2.6 mg/dL (0.6-1.3); POTASSIUM 4.1 mmol/L (3.5-5.1)
[2021-11-30 08:00] VITALS: BP 125/51
--- NOTE | 2021-11-30 08:01 | NUR ---
RN OPENING NOTES PATIENT AWAKE IN BED RESTING, AWAKE. A/O X2. NO S/S OF PAIN NOTED AT THIS TIME. ON VENT TOLERATING WELL, NO DISTRESS OR SHORTNESS OF BREATH NOTED. IV JANET MIDLINE, INTACT AND PATENT. PATIENT ON EXTERNAL SLUBBER OPERATOR WITH CURRENT READING OF S.R. WITH HR OF 80. FALL AND SAFETY MEASURES IN PLACE, BED ALARM ON, BED IN LOW AND LOCK POSITION, CALL LIGHT AND TABLE WITHIN EASY REACH, SIDE RAILS UP X2. WILL CONTINUE TO MONITOR.
--- NOTE | 2021-11-30 08:01 | NUR ---
RN OPENING NOTES PATIENT AWAKE IN BED RESTING, AWAKE. A/O X2. NO S/S OF PAIN NOTED AT THIS TIME. ON VENT TOLERATING WELL, NO DISTRESS OR SHORTNESS OF BREATH NOTED. IV JANET MIDLINE, INTACT AND PATENT. PATIENT ON EXTERNAL PATIENT SAFETY SITTER WITH CURRENT READING OF S.R. WITH HR OF 80. FALL AND SAFETY MEASURES IN PLACE, BED ALARM ON, BED IN LOW AND LOCK POSITION, CALL LIGHT AND TABLE WITHIN EASY REACH, SIDE RAILS UP X2. WILL CONTINUE TO MONITOR.
[2021-11-30] MEDS: CHLORHEXIDINE GLUCONATE 15 ML UDC MM SCH ×2 (09:30→21:00)
[2021-11-30] MEDS: PANTOPRAZOLE 40 MG/PACK PACK JT SCH (09:31)
[2021-11-30] MEDS: LINEZOLID 600 MG TABLET PO SCH (09:31)
[2021-11-30] MEDS: FLUCONAZOLE (100 MG) 100 MG TABLET PO SCH (09:31)
[2021-11-30] MEDS: NEPRO 1,000 ML BOTTLE GT SCH (09:33)
[2021-11-30] MEDS: DAKINS QUARTER STRENGTH (0.125%) 480 ML BOTTLE TOP SCH (09:37)
[2021-11-30] MEDS: hydrALAZINE HCL 25 MG TABLET GT SCH ×2 (10:35→22:35)
[2021-11-30 12:00] VITALS: BP 143/77
[2021-11-30] MEDS: CEFTAZIDIME 1 G in IV D5W 50 ML IV SCH (12:19)
[2021-11-30] MEDS: HYDROMORPHONE HCL 2 MG TABLET JT PRN (12:19)
[2021-11-30 16:00] VITALS: BP 159/56
--- NOTE | 2021-11-30 19:00 | NUR ---
RN CLOSING NOTES PATIENT AWAKE IN BED RESTING, AWAKE. A/O X2. NO S/S OF PAIN NOTED AT THIS TIME. ON VENT TOLERATING WELL, NO DISTRESS OR SHORTNESS OF BREATH NOTED. IV JANET MIDLINE, INTACT AND PATENT. PATIENT ON EXTERNAL SANDBLASTER GLASS WITH CURRENT READING OF S.R. WITH HR OF 80. FALL AND SAFETY MEASURES IN PLACE, BED ALARM ON, BED IN LOW AND LOCK POSITION, CALL LIGHT AND TABLE WITHIN EASY REACH, SIDE RAILS UP X2. WILL ENDORSE TO UTILITY WORKER ROLLER SHOP.
--- NOTE | 2021-11-30 19:00 | NUR ---
RN CLOSING NOTES PATIENT AWAKE IN BED RESTING, AWAKE. A/O X2. NO S/S OF PAIN NOTED AT THIS TIME. ON VENT TOLERATING WELL, NO DISTRESS OR SHORTNESS OF BREATH NOTED. IV JANET MIDLINE, INTACT AND PATENT. PATIENT ON EXTERNAL FOOD PRODUCTS SALES REPRESENTATIVE WITH CURRENT READING OF S.R. WITH HR OF 80. FALL AND SAFETY MEASURES IN PLACE, BED ALARM ON, BED IN LOW AND LOCK POSITION, CALL LIGHT AND TABLE WITHIN EASY REACH, SIDE RAILS UP X2. WILL ENDORSE TO GERIATRIC PHYSICIAN.
--- NOTE | 2021-11-30 19:35 | NUR ---
BILLING COLLECTIONS SPECIALIST OPENING NOTES PATIENT AWAKE IN BED RESTING, AWAKE. A/O X2. NO S/S OF PAIN NOTED AT THIS TIME. ON VENT TOLERATING WELL, NO DISTRESS OR SHORTNESS OF BREATH NOTED. IV JANET MIDLINE, INTACT AND PATENT. PATIENT ON EXTERNAL FLUORESCENT LAMP REPLACER WITH CURRENT READING OF S.R. WITH HR OF 85. FALL AND SAFETY MEASURES IN PLACE, BED ALARM ON, BED IN LOW AND LOCK POSITION, CALL LIGHT AND TABLE WITHIN EASY REACH, SIDE RAILS UP X2. WILL CONTINUE TO MONITOR.
--- NOTE | 2021-11-30 19:35 | NUR ---
OLD TESTAMENT PROFESSOR OPENING NOTES PATIENT AWAKE IN BED RESTING, AWAKE. A/O X2. NO S/S OF PAIN NOTED AT THIS TIME. ON VENT TOLERATING WELL, NO DISTRESS OR SHORTNESS OF BREATH NOTED. IV JANET MIDLINE, INTACT AND PATENT. PATIENT ON EXTERNAL HYDRAULIC PLUMBER WITH CURRENT READING OF S.R. WITH HR OF 85. FALL AND SAFETY MEASURES IN PLACE, BED ALARM ON, BED IN LOW AND LOCK POSITION, CALL LIGHT AND TABLE WITHIN EASY REACH, SIDE RAILS UP X2. WILL CONTINUE TO MONITOR.
[2021-11-30] MEDS: ONDANSETRON HCL/PF 4 MG/2 ML VIAL IVP PRN (19:45)
[2021-11-30 20:00] VITALS: BP 169/79
[2021-12-01] VITALS: BP 170/75
[2021-12-01] MEDS: LINEZOLID 600 MG TABLET PO SCH ×3 (00:19→21:00)
[2021-12-01] MEDS: diphenhydrAMINE HCL ELIX 25 MG/10 ML UDC GT SCH ×5 (00:19→20:00)
[2021-12-01] MEDS: HYDROMORPHONE 1 MG/1 ML DISP.SYRIN IV PRN ×3 (00:30→22:45)
[2021-12-01] MEDS: BLOOD SUGAR DIAGNOSTIC 1 EACH STRIP IN SCH ×4 (00:56→18:41)
[2021-12-01 04:00] VITALS: BP_SYST 134; BP_SYST 160; BP_DIAS 63; BP_DIAS 90
[2021-12-01] MEDS: ONDANSETRON HCL/PF 4 MG/2 ML VIAL IVP PRN ×2 (04:10→17:03)
[2021-12-01] MEDS: DEXTROSE 50%-WATER 50 ML DISP.SYRIN IV PRN (06:50)
--- NOTE | 2021-12-01 07:45 | NUR ---
RN OPENING NOTES PATIENT AWAKE IN BED RESTING, AWAKE. A/O X2. NO S/S OF PAIN NOTED AT THIS TIME. ON VENT TOLERATING WELL, NO DISTRESS OR SHORTNESS OF BREATH NOTED. IV JANET MIDLINE, INTACT AND PATENT. PATIENT ON EXTERNAL CLOTHES DESIGNER WITH CURRENT READING OF S.R. WITH HR OF 89. FALL AND SAFETY MEASURES IN PLACE, BED ALARM ON, BED IN LOW AND LOCK POSITION, CALL LIGHT AND TABLE WITHIN EASY REACH, SIDE RAILS UP X2. WILL CONTINUE TO MONITOR.
--- NOTE | 2021-12-01 07:45 | NUR ---
RN OPENING NOTES PATIENT AWAKE IN BED RESTING, AWAKE. A/O X2. NO S/S OF PAIN NOTED AT THIS TIME. ON VENT TOLERATING WELL, NO DISTRESS OR SHORTNESS OF BREATH NOTED. IV JANET MIDLINE, INTACT AND PATENT. PATIENT ON EXTERNAL ORDERLIES TEACHER WITH CURRENT READING OF S.R. WITH HR OF 89. FALL AND SAFETY MEASURES IN PLACE, BED ALARM ON, BED IN LOW AND LOCK POSITION, CALL LIGHT AND TABLE WITHIN EASY REACH, SIDE RAILS UP X2. WILL CONTINUE TO MONITOR.
--- NOTE | 2021-12-01 07:55 | NUR ---
CONTINUOUS MINING MACHINE COAL MINER CLOSING NOTES PATIENT AWAKE IN BED RESTING, AWAKE. A/O X2. NO S/S OF PAIN NOTED AT THIS TIME. ON VENT TOLERATING WELL, NO DISTRESS OR SHORTNESS OF BREATH NOTED. IV JANET MIDLINE, INTACT AND PATENT. PATIENT ON EXTERNAL APPLIANCE PAINTER AND REFINISHER WITH CURRENT READING OF S.R. WITH HR OF 85. FALL AND SAFETY MEASURES IN PLACE, BED ALARM ON, BED IN LOW AND LOCK POSITION, CALL LIGHT AND TABLE WITHIN EASY REACH, SIDE RAILS UP X2. WILL CONTINUE TO MONITOR.
--- NOTE | 2021-12-01 07:55 | NUR ---
COSMETIC ASSEMBLER CLOSING NOTES PATIENT AWAKE IN BED RESTING, AWAKE. A/O X2. NO S/S OF PAIN NOTED AT THIS TIME. ON VENT TOLERATING WELL, NO DISTRESS OR SHORTNESS OF BREATH NOTED. IV JANET MIDLINE, INTACT AND PATENT. PATIENT ON EXTERNAL CEO AND FOUNDER WITH CURRENT READING OF S.R. WITH HR OF 85. FALL AND SAFETY MEASURES IN PLACE, BED ALARM ON, BED IN LOW AND LOCK POSITION, CALL LIGHT AND TABLE WITHIN EASY REACH, SIDE RAILS UP X2. WILL CONTINUE TO MONITOR.
[2021-12-01 08:00] VITALS: BP 181/83
[2021-12-01] MEDS: PANTOPRAZOLE 40 MG/PACK PACK JT SCH (08:41)
[2021-12-01] MEDS: CHLORHEXIDINE GLUCONATE 15 ML UDC MM SCH ×2 (08:41→21:00)
[2021-12-01] MEDS: FLUCONAZOLE (100 MG) 100 MG TABLET PO SCH (08:43)
[2021-12-01] MEDS: HYDROMORPHONE HCL 2 MG TABLET JT PRN (08:43)
[2021-12-01] MEDS: hydrALAZINE HCL 25 MG TABLET GT SCH ×2 (08:43→21:00)
[2021-12-01 09:13] LABS: BASOPHILS # (AUTO) 0.1 K/uL (0.0-0.2); BASOPHILS % (AUTO) 0.5 % (0.0-2.0); EOSINOPHILS % (AUTO) 3.4 % (0.0-6.0); HEMATOCRIT 25 % (33-45); LYMPHOCYTES # (AUTO) 1.1 K/uL (0.8-4.8); LYMPHOCYTES % (AUTO) 6.1 % (20.0-44.0); MEAN CORPUSCULAR HGB CONC 33 g/dl (31.0-36.0); MEAN CORPUSCULAR VOLUME 93 fL (82-100); MONOCYTES % (AUTO) 5.4 % (2.0-12.0); NEUTROPHILS # (AUTO) 15.8 K/uL (1.8-8.9); NEUTROPHILS % (AUTO) 84.6 % (43.0-81.0); PLATELET COUNT (AUTO) 441 K/uL (150-450); RED BLOOD CELL COUNT(AUTO) 2.64 MIL/uL (4.0-5.2); WHITE BLOOD COUNT (AUTO) 18.6 K/uL (4.3-11.0)
[2021-12-01] MEDS: DAKINS QUARTER STRENGTH (0.125%) 480 ML BOTTLE TOP SCH (09:15)
[2021-12-01 09:30] LABS: CALCIUM, SERUM 8.7 mg/dL (8.5-10.1); POTASSIUM 3.5 mmol/L (3.5-5.1)
--- NOTE | 2021-12-01 11:00 | NUR ---
RN NOTES PATIENT VOMITED SEVERAL TIMES DURING THE METHODS SPECIALIST PER METHODS SPECIALIST NURSE. LAST EMESIS WAS AT 7:30AM, COLOR GREEN. FEEDING WAS STOP DURING THE NIGHT DUE TO THE VOMITING. DOCTOR WAS NOTIFIED AND DOCTOR SAID TO START FEEDING AT 2OML/HR AND IF TOLERATED AFTER 4HRS INCREASED TO PREVIOUS RATE, 50ML/HR. WILL CONTINUE TO MONITOR.
--- NOTE | 2021-12-01 11:00 | NUR ---
RN NOTES PATIENT VOMITED SEVERAL TIMES DURING THE LEACHER PER LEACHER NURSE. LAST EMESIS WAS AT 7:30AM, COLOR GREEN. FEEDING WAS STOP DURING THE NIGHT DUE TO THE VOMITING. DOCTOR WAS NOTIFIED AND DOCTOR SAID TO START FEEDING AT 2OML/HR AND IF TOLERATED AFTER 4HRS INCREASED TO PREVIOUS RATE, 50ML/HR. WILL CONTINUE TO MONITOR.
[2021-12-01] MEDS: CEFTAZIDIME 1 G in IV D5W 50 ML IV SCH (13:27)
[2021-12-01 16:00] VITALS: BP 160/51
--- NOTE | 2021-12-01 18:56 | NUR ---
pt vomited x1, feeding stopped and Los DNP informed, new order for stat ct abdomen wo contrast received.
--- NOTE | 2021-12-01 18:56 | NUR ---
pt vomited x1, feeding stopped and Los DNP informed, new order for stat ct abdomen wo contrast received.
--- NOTE | 2021-12-01 19:02 | NUR ---
nurse at the bedside cleaning the pt, ct informed about stat order.
--- NOTE | 2021-12-01 19:02 | NUR ---
nurse at the bedside cleaning the pt, ct informed about stat order.
--- NOTE | 2021-12-01 19:39 | NUR ---
RN CLOSING NOTES PATIENT AWAKE IN BED RESTING, AWAKE. A/O X2. NO S/S OF PAIN NOTED AT THIS TIME. ON VENT TOLERATING WELL, NO DISTRESS OR SHORTNESS OF BREATH NOTED. IV JANET MIDLINE, INTACT AND PATENT. PATIENT ON EXTERNAL FITTER TYPE BAR AND SEGMENT WITH CURRENT READING OF S.R. WITH HR OF 87. FALL AND SAFETY MEASURES IN PLACE, BED ALARM ON, BED IN LOW AND LOCK POSITION, CALL LIGHT AND TABLE WITHIN EASY REACH, SIDE RAILS UP X2. WILL CONTINUE TO MONITOR. Addendum: 12/01/21 at 1940 by Sunshine Mccurdy RN WILL ENDORSE TO TALKBACK HOST.
--- NOTE | 2021-12-01 19:39 | NUR ---
RN CLOSING NOTES PATIENT AWAKE IN BED RESTING, AWAKE. A/O X2. NO S/S OF PAIN NOTED AT THIS TIME. ON VENT TOLERATING WELL, NO DISTRESS OR SHORTNESS OF BREATH NOTED. IV JANET MIDLINE, INTACT AND PATENT. PATIENT ON EXTERNAL DENTAL INSURANCE BILLER WITH CURRENT READING OF S.R. WITH HR OF 87. FALL AND SAFETY MEASURES IN PLACE, BED ALARM ON, BED IN LOW AND LOCK POSITION, CALL LIGHT AND TABLE WITHIN EASY REACH, SIDE RAILS UP X2. WILL CONTINUE TO MONITOR. Addendum: 12/01/21 at 1940 by Sunshine Mccurdy RN WILL ENDORSE TO CARDIO TECH.
--- NOTE | 2021-12-01 20:02 | NUR ---
TELE OPENING NOTE PATIENT RECEIVED AWAKE IN BED. A/OX2. NO S/S OF DISTRESS, BREATHING SYMMETRICAL. SALON DESIGNER REPORTS SR 81. PATIENT HAS RECENTLY BEEN VOMITING AND WAS GIVEN ZOFRAN BY PREVIOUS NURSE. TUBE FEEDING STOPPED PER PREVIOUS NURSE AND KEPT NPO. CT /S COB WILL BE ADMINISTERED AROUND 2200 TONIGHT. SAFETY MEASURES IN PLACE: BED AT LOWEST POSITION, RAILS UP X2, CALL ALLEN WITHIN REACH. WILL CONTINUE TO MONITOR.
--- NOTE | 2021-12-01 20:02 | NUR ---
TELE OPENING NOTE PATIENT RECEIVED AWAKE IN BED. A/OX2. NO S/S OF DISTRESS, BREATHING SYMMETRICAL. SPORTS ANCHOR REPORTS SR 81. PATIENT HAS RECENTLY BEEN VOMITING AND WAS GIVEN ZOFRAN BY PREVIOUS NURSE. TUBE FEEDING STOPPED PER PREVIOUS NURSE AND KEPT NPO. CT /S COB WILL BE ADMINISTERED AROUND 2200 TONIGHT. SAFETY MEASURES IN PLACE: BED AT LOWEST POSITION, RAILS UP X2, CALL ALLEN WITHIN REACH. WILL CONTINUE TO MONITOR.
[2021-12-01 20:30] VITALS: BP 173/70
[2021-12-02 00:09] VITALS: BP 182/79
[2021-12-02] MEDS: DEXTROSE 50%-WATER 50 ML DISP.SYRIN IV PRN ×5 (00:13→23:43)
[2021-12-02] MEDS: BLOOD SUGAR DIAGNOSTIC 1 EACH STRIP IN SCH ×5 (00:13→23:43)
[2021-12-02] MEDS: diphenhydrAMINE HCL ELIX 25 MG/10 ML UDC GT SCH ×4 (02:00→20:00)
[2021-12-02] MEDS: ONDANSETRON HCL/PF 4 MG/2 ML VIAL IVP PRN ×2 (03:28→20:56)
[2021-12-02] MEDS: HYDROMORPHONE 1 MG/1 ML DISP.SYRIN IV PRN ×4 (03:29→21:36)
[2021-12-02 04:34] VITALS: BP 178/75
--- NOTE | 2021-12-02 05:47 | NUR ---
PROCESS SAFETY ENGINEER NOTE PATIENT HAS AN ORDER FOR NGT INSERTION. PATIENT WAS NOTIFIED IN MONGOLIAN, AND TWO STAFF IN ESTONIAN. PATIENT REFUSED EACH TIME. PATIENT HAS BEEN REFUSING SUCTIONING BOTH IN SHAKING HER HEAD NO AND SWATTING HANDS AWAY IN ATTEMPTS TO SUCTION HER. SHE HAS ALSO REFUSED TUBE MOUNTER's AND RN'S ATTEMPTS AT REPOSITIONING HER. PATIENT HAS BEEN VOMITING BILE POSSIBLY D/T SBO. PATIENT HAS BEEN INSTRUCTED IN MONGOLIAN AND ESTONIAN TO KEEP THE HOB UPRIGHT TO AVOID ASPIRATION. PATIENT IS RAISED UP, AND UPON STAFF LEAVING ROOM PATIENT MOVES BED BACK DOWN. HOB IS RAISED UP AND LOCKED IN PLACE FOR PATIENT'S SAFETY. Addendum: 12/02/21 at 0557 by ARISTEO JONES RN CHARGE NURSE AND INCIDENT RESPONSE CONSULTANT NOTIFIED
--- NOTE | 2021-12-02 05:47 | NUR ---
ACCOUNTS PAYABLE PROCESSOR NOTE PATIENT HAS AN ORDER FOR NGT INSERTION. PATIENT WAS NOTIFIED IN MONEGASQUE, AND TWO STAFF IN THAI. PATIENT REFUSED EACH TIME. PATIENT HAS BEEN REFUSING SUCTIONING BOTH IN SHAKING HER HEAD NO AND SWATTING HANDS AWAY IN ATTEMPTS TO SUCTION HER. SHE HAS ALSO REFUSED PLANT ATTENDANT's AND RN'S ATTEMPTS AT REPOSITIONING HER. PATIENT HAS BEEN VOMITING BILE POSSIBLY D/T SBO. PATIENT HAS BEEN INSTRUCTED IN MONEGASQUE AND THAI TO KEEP THE HOB UPRIGHT TO AVOID ASPIRATION. PATIENT IS RAISED UP, AND UPON STAFF LEAVING ROOM PATIENT MOVES BED BACK DOWN. HOB IS RAISED UP AND LOCKED IN PLACE FOR PATIENT'S SAFETY. Addendum: 12/02/21 at 0557 by ARISTEO JONES RN CHARGE NURSE AND FINAL COAT SPRAYER NOTIFIED
[2021-12-02] MEDS: INSULIN REGULAR, HUMAN 100 UNIT/ML 3 ML VIAL SQ PRN (06:10)
[2021-12-02 06:24] LABS: BASOPHILS # (AUTO) 0.1 K/uL (0.0-0.2); BASOPHILS % (AUTO) 0.8 % (0.0-2.0); EOSINOPHILS % (AUTO) 5.8 % (0.0-6.0); HEMATOCRIT 24 % (33-45); HEMOGLOBIN 7.8 g/dL (11.5-14.8); LYMPHOCYTES # (AUTO) 1.7 K/uL (0.8-4.8); LYMPHOCYTES % (AUTO) 9.7 % (20.0-44.0); MEAN CORPUSCULAR HGB CONC 33 g/dl (31.0-36.0); MEAN CORPUSCULAR VOLUME 93 fL (82-100); MONOCYTES # (AUTO) 1.3 K/uL (0.1-1.30); MONOCYTES % (AUTO) 7.3 % (2.0-12.0); NEUTROPHILS # (AUTO) 13.1 K/uL (1.8-8.9); NEUTROPHILS % (AUTO) 76.4 % (43.0-81.0); PLATELET COUNT (AUTO) 456 K/uL (150-450); RED BLOOD CELL COUNT(AUTO) 2.54 MIL/uL (4.0-5.2); WHITE BLOOD COUNT (AUTO) 17.2 K/uL (4.3-11.0)
--- NOTE | 2021-12-02 06:33 | NUR ---
CELL EFFICIENCY SUPERVISOR CLOSING NOTE PATIENT AWAKE IN BED. A/OX2. NO S/S OF DISTRESS, BREATHING VIA VENT. MANAGER UTILIZATION REVIEW REPORTS SR85. JANET MIDLINE SL PATENT. SAFETY MEASURES IN PLACE: BED AT LOWEST LEVEL, RAILS UP X2, CALL ALLEN WITHIN REACH. WILL ENDORSE TO NEXT SHIFT FOR YECENIA.
--- NOTE | 2021-12-02 06:33 | NUR ---
PROCESS PROJECT ENGINEER CLOSING NOTE PATIENT AWAKE IN BED. A/OX2. NO S/S OF DISTRESS, BREATHING VIA VENT. ENHANCED ENVIRONMENTAL OPERATOR REPORTS SR85. JANET MIDLINE SL PATENT. SAFETY MEASURES IN PLACE: BED AT LOWEST LEVEL, RAILS UP X2, CALL ALLEN WITHIN REACH. WILL ENDORSE TO NEXT SHIFT FOR YECENIA.
[2021-12-02 06:58] LABS: CALCIUM, SERUM 9.2 mg/dL (8.5-10.1); CREATININE 2.4 mg/dL (0.6-1.3); POTASSIUM 3.3 mmol/L (3.5-5.1)
--- NOTE | 2021-12-02 07:47 | NUR ---
FINANCIAL RISK MANAGER OPENING NOTES RECEIVED Pt AWAKE IN BED. A/OX2. NO S/S OF DISTRESS NOTES AT THIS TIME, BREATHING IS EVEN AND UNLABORED ON VENT. TUBE FEEDING STOPPED PER PREVIOUS NURSE AND KEPT NPO. SAFETY MEASURES IN PLACE: BED IS LOCKED AND IN LOWEST POSITION, SIDE RAILS UP X2, CALL LIGHT AND BEDSIDE TABLE ARE WITHIN REACH. WILL CONTINUE TO MONITOR THROUGHOUT THE SHIFT.
--- NOTE | 2021-12-02 07:47 | NUR ---
SCHOOL TRAFFIC GUARD OPENING NOTES RECEIVED Pt AWAKE IN BED. A/OX2. NO S/S OF DISTRESS NOTES AT THIS TIME, BREATHING IS EVEN AND UNLABORED ON VENT. TUBE FEEDING STOPPED PER PREVIOUS NURSE AND KEPT NPO. SAFETY MEASURES IN PLACE: BED IS LOCKED AND IN LOWEST POSITION, SIDE RAILS UP X2, CALL LIGHT AND BEDSIDE TABLE ARE WITHIN REACH. WILL CONTINUE TO MONITOR THROUGHOUT THE SHIFT.
[2021-12-02] MEDS: DAKINS QUARTER STRENGTH (0.125%) 480 ML BOTTLE TOP SCH (09:00)
[2021-12-02] MEDS: LINEZOLID 600 MG TABLET PO SCH (09:00)
[2021-12-02] MEDS: FLUCONAZOLE (100 MG) 100 MG TABLET PO SCH (09:00)
[2021-12-02] MEDS: PANTOPRAZOLE 40 MG/PACK PACK JT SCH (09:00)
[2021-12-02] MEDS: CHLORHEXIDINE GLUCONATE 15 ML UDC MM SCH ×2 (09:00→21:00)
[2021-12-02] MEDS: hydrALAZINE HCL 25 MG TABLET GT SCH ×2 (09:00→20:57)
[2021-12-02 09:18] VITALS: BP 163/64
--- NOTE | 2021-12-02 10:24 | NUR ---
RAJNI NOTES: MEDICATIONS NO MEDS ADMINISTERED THIS AM DUE TO Pt'S DIAGNOSIS. NO MEDS AND TUBE FEEDING STOPPED FOR NOW. Addendum: 12/02/21 at 1505 by OSIRIS HODGES RN Pt NOT RECEIVING ANY PO OR IG TUBE MEDS AT THIS TIME.
[2021-12-02 12:00] VITALS: BP 107/94
--- NOTE | 2021-12-02 12:22 | NUR ---
RN NOTES: BLOOD SUGAR Pt'S BLOOD SUGAR WAS 49. 50% DEXTROSE ADMINISTERED, WILL CONTINUE TO MONITOR
--- NOTE | 2021-12-02 12:22 | NUR ---
RN NOTES: BLOOD SUGAR Pt'S BLOOD SUGAR WAS 49. 50% DEXTROSE ADMINISTERED, WILL CONTINUE TO MONITOR
[2021-12-02] MEDS ORDERED: POTASSIUM CHLORIDE 20 MEQ TAB.PRT.SR PO ONE (13:00)
[2021-12-02] MEDS: CEFTAZIDIME 1 G in IV D5W 50 ML IV SCH (13:01)
--- NOTE | 2021-12-02 13:37 | NUR ---
RN NOTES: BS REASSESSMENT Pt'S BLOOD SUGAR WAS 49, D50 WAS GIVEN AND WAS REASSESSED. BLOOD SUGAR IS NOW 120. WILL CONTINUE TO MONITOR.
--- NOTE | 2021-12-02 13:37 | NUR ---
RN NOTES: BS REASSESSMENT Pt'S BLOOD SUGAR WAS 49, D50 WAS GIVEN AND WAS REASSESSED. BLOOD SUGAR IS NOW 120. WILL CONTINUE TO MONITOR.
[2021-12-02] MEDS ORDERED: POTASSIUM CL. PREMIX PERIPHER. 50 ML IV SCH (15:00)
[2021-12-02 15:58] VITALS: BP 110/56
--- NOTE | 2021-12-02 18:10 | NUR ---
RN NOTES: BS Pt'S BS WAS 61, D50 WAS GIVEN. WILL CONTINUE TO MONITOR FOR HYPOGLYCEMIC EFFECTS.
--- NOTE | 2021-12-02 18:10 | NUR ---
RN NOTES: BS Pt'S BS WAS 61, D50 WAS GIVEN. WILL CONTINUE TO MONITOR FOR HYPOGLYCEMIC EFFECTS.
--- NOTE | 2021-12-02 18:57 | NUR ---
PROFESSOR OF SPANISH CLOSING NOTE Pt IS RESTING IN BED. A/OX2. NO S/S OF DISTRESS AT THIS TIME, BREATHING IS EVEN AND UNLABORED VIA VENT. JANET MIDLINE SL PATENT AND INTACT. ALL NEEDS WERE MET. SAFETY MEASURES IN PLACE: BED IS LOCKED AND IN LOWEST POSITION. SIDE RAILS UP X2, CALL LIGHT AND BEDSIDE TABLE ARE WITHIN REACH. WILL ENDORSE TO ONCOMING SHIFT
--- NOTE | 2021-12-02 19:29 | NUR ---
PT REFUSED TO CONTINUE WITH SMALL BOWEL FOLLOW THRU @ 1650. RADIOLOGIST DR[address] GUERRIER WAS MADE AWARE. PER HIS SUGGESTION WE MODIFIED THE EXAM AND INSTEAD ATTEMPTED A 3 HOUR FILM @ 1905. AFTER THE 3 HOUR IMAGE THE PATIENT INDICATED THAT SHE DOES NOT WANT IMAGING TO BE CONTINUED. NURSE IS AWARE.
--- NOTE | 2021-12-02 19:42 | NUR ---
ACADEMIC COACH OPENING NOTES RECEIVED PT IN BED, AWAKE. AOx2, UPPER SORBIAN SPEAKING. ON VENT AND TOLERATING WELL. NO SOB NOTED. NO S/SX OF RESPIRATORY DISTRESS NOTED. IV ACCESS IN JANET MIDLINE. IV IS INTACT, PATENT, AND FLUSHING WELL. TELE MONITOR DETECTS SINUS RHYTHM WITH RATE OF 80s. SAFETY PRECAUTIONS IN PLACE: BED IN LOWEST, LOCKED POSITION, SIDERAILS UPx2, AND BRAKES ON. TABLE AND CALL LIGHT WITHIN REACH. WILL CONTINUE TO MONITOR.
--- NOTE | 2021-12-02 19:42 | NUR ---
CORPORATE CONSULTANT OPENING NOTES RECEIVED PT IN BED, AWAKE. AOx2, LUXEMBOURGISH SPEAKING. ON VENT AND TOLERATING WELL. NO SOB NOTED. NO S/SX OF RESPIRATORY DISTRESS NOTED. IV ACCESS IN JANET MIDLINE. IV IS INTACT, PATENT, AND FLUSHING WELL. TELE MONITOR DETECTS SINUS RHYTHM WITH RATE OF 80s. SAFETY PRECAUTIONS IN PLACE: BED IN LOWEST, LOCKED POSITION, SIDERAILS UPx2, AND BRAKES ON. TABLE AND CALL LIGHT WITHIN REACH. WILL CONTINUE TO MONITOR.
[2021-12-02 20:43] VITALS: BP 115/47
[2021-12-02] MEDS ORDERED: FLUCONAZOLE IN NS 100 MG in PREMIX 1 EA IV SCH (21:00)
[2021-12-02] MEDS ORDERED: COLISTIMETHATE SODIUM 100 MG in IV NS 0.9% 50 ML IV SCH (21:00)
[2021-12-02] MEDS: METRONIDAZOLE 500MG/ NS 100ML 500 MG in PREMIX 1 EA IV SCH (23:29)
[2021-12-02] MEDS: hydrALAZINE HCL IV 20 MG VIAL IV PRN (23:30)
--- NOTE | 2021-12-02 23:49 | NUR ---
ADMINISTERED D50 FOR BS OF 68 MG/DL. WILL CONTINUE TO MONITOR.
--- NOTE | 2021-12-02 23:49 | NUR ---
ADMINISTERED D50 FOR BS OF 68 MG/DL. WILL CONTINUE TO MONITOR.
[2021-12-03] VITALS (10 sets, daily range): BP systolic 101–164; BP diastolic 43–108
[2021-12-03] MEDS: LINEZOLID RTU BAG 600 MG in PREMIX 1 EA IV SCH ×3 (01:02→21:49)
--- NOTE | 2021-12-03 01:30 | NUR ---
BS IS 107 MG/DL. ALSO ADMINISTERED HYDRALAZINE FOR BP OF 189/90. WILL CONTINUE TO MONITOR. Addendum: 12/03/21 at 130 by MARGOT ANNA RN BLOOD PRESSURE WAS 158/108. WILL CONTINUE TO MONITOR. Addendum: 12/03/21 at 131 by MARGOT ANNA RN WHEN REASSESSED BLOOD PRESSURE WAS 158/108. WILL CONTINUE TO MONITOR.
--- NOTE | 2021-12-03 01:31 | NUR ---
DIALYSIS ENDED AT 2330. 1 LITER OUT PER DIALYSIS NURSE. STATED BP WAS HIGH 189/90. ADMINISTERED HYDRALAZINE.
--- NOTE | 2021-12-03 01:31 | NUR ---
DIALYSIS ENDED AT 2330. 1 LITER OUT PER DIALYSIS NURSE. STATED BP WAS HIGH 189/90. ADMINISTERED HYDRALAZINE.
--- NOTE | 2021-12-03 01:47 | NUR ---
ADVISED DR. HUANG OF HIGH BP AND NAUSEA. ORDERED PEG TO GO ONTO LIS. WILL CONTINUE TO MONITOR.
--- NOTE | 2021-12-03 01:47 | NUR ---
ADVISED DR. HUANG OF HIGH BP AND NAUSEA. ORDERED PEG TO GO ONTO LIS. WILL CONTINUE TO MONITOR.
--- NOTE | 2021-12-03 01:58 | NUR ---
DID NOT ADMINISTER DIPHENHYDRAMINE BECAUSE OF NAUSEA. DID NOT ADMINISTER BP MEDICATIONS PER DIALYSIS NURSE REQUEST. ADMINISTERED LATE ANTIBIOTICS BECAUSE OF DIALYSIS. OTHER ANTIBIOTICS NOT PRESENT ON FLOOR. ADMINISTERED DILAUDID @ 2136 FOR PAIN. VS WNL. WILL CONTINUE TO MONITOR.
[2021-12-03] MEDS: diphenhydrAMINE HCL ELIX 25 MG/10 ML UDC GT SCH ×4 (02:00→20:00)
[2021-12-03] MEDS: HYDROMORPHONE 1 MG/1 ML DISP.SYRIN IV PRN (02:36)
--- NOTE | 2021-12-03 02:37 | NUR ---
ADMINISTERED DILAUDID PER MD ORDER. VS WNL. WILL CONTINUE TO MONITOR.
--- NOTE | 2021-12-03 02:37 | NUR ---
ADMINISTERED DILAUDID PER MD ORDER. VS WNL. WILL CONTINUE TO MONITOR.
[2021-12-03] MEDS: DEXTROSE 50%-WATER 50 ML DISP.SYRIN IV PRN ×3 (04:47→17:09)
--- NOTE | 2021-12-03 04:52 | NUR ---
BS IS 16 MG/DL. ADMINISTERED D50. WILL CONTINUE TO MONITOR.
--- NOTE | 2021-12-03 04:52 | NUR ---
BS IS 16 MG/DL. ADMINISTERED D50. WILL CONTINUE TO MONITOR.
[2021-12-03] MEDS: METRONIDAZOLE 500MG/ NS 100ML 500 MG in PREMIX 1 EA IV SCH ×3 (05:01→20:34)
[2021-12-03] MEDS: BLOOD SUGAR DIAGNOSTIC 1 EACH STRIP IN SCH ×4 (05:30→23:41)
[2021-12-03 06:32] LABS: BASOPHILS # (AUTO) 0.2 K/uL (0.0-0.2); BASOPHILS % (AUTO) 0.5 % (0.0-2.0); EOSINOPHILS % (AUTO) 1.3 % (0.0-6.0); HEMATOCRIT 23 % (33-45); HEMOGLOBIN 7.7 g/dL (11.5-14.8); LYMPHOCYTES # (AUTO) 0.5 K/uL (0.8-4.8); LYMPHOCYTES % (AUTO) 1.3 % (20.0-44.0); MEAN CORPUSCULAR HGB CONC 33 g/dl (31.0-36.0); MEAN CORPUSCULAR VOLUME 94 fL (82-100); MONOCYTES # (AUTO) 0.8 K/uL (0.1-1.30); MONOCYTES % (AUTO) 2.3 % (2.0-12.0); NEUTROPHILS # (AUTO) 33.9 K/uL (1.8-8.9); NEUTROPHILS % (AUTO) 94.6 % (43.0-81.0); PLATELET COUNT (AUTO) 403 K/uL (150-450); RED BLOOD CELL COUNT(AUTO) 2.51 MIL/uL (4.0-5.2)
--- NOTE | 2021-12-03 06:40 | NUR ---
ACCOUNTS RECEIVABLE ASSISTANT CLOSING NOTES PT IN BED, ASLEEP, AWAKENS TO VERBAL STIMULI. AOx2, UZBEK SPEAKING. ON VENT AND TOLERATING WELL. NO SOB NOTED. NO S/SX OF RESPIRATORY DISTRESS NOTED. IV ACCESS IN JANET MIDLINE. IV IS INTACT, PATENT, AND FLUSHING WELL. TELE MONITOR DETECTS SINUS RHYTHM WITH RATE OF 80s. ALL NEEDS MET. PT KEPT CLEAN AND DRY. SAFETY PRECAUTIONS IN PLACE: BED IN LOWEST, LOCKED POSITION, SIDERAILS UPx2, AND BRAKES ON. TABLE AND CALL LIGHT WITHIN REACH. WILL ENDORSE TO ONCOMING SHIFT FOR YECENIA.
--- NOTE | 2021-12-03 06:40 | NUR ---
BUTTON RECLAIMER CLOSING NOTES PT IN BED, ASLEEP, AWAKENS TO VERBAL STIMULI. AOx2, SERBIAN SPEAKING. ON VENT AND TOLERATING WELL. NO SOB NOTED. NO S/SX OF RESPIRATORY DISTRESS NOTED. IV ACCESS IN JANET MIDLINE. IV IS INTACT, PATENT, AND FLUSHING WELL. TELE MONITOR DETECTS SINUS RHYTHM WITH RATE OF 80s. ALL NEEDS MET. PT KEPT CLEAN AND DRY. SAFETY PRECAUTIONS IN PLACE: BED IN LOWEST, LOCKED POSITION, SIDERAILS UPx2, AND BRAKES ON. TABLE AND CALL LIGHT WITHIN REACH. WILL ENDORSE TO ONCOMING SHIFT FOR YECENIA.
--- NOTE | 2021-12-03 06:57 | NUR ---
KAVYA HERNANDEZ WITH RAJNI LEUNG.
--- NOTE | 2021-12-03 06:57 | NUR ---
KAVYA HERNANDEZ WITH RAJNI LEUNG.
[2021-12-03 06:59] LABS: CALCIUM, SERUM 8.6 mg/dL (8.5-10.1); POTASSIUM 3.1 mmol/L (3.5-5.1)
--- NOTE | 2021-12-03 07:30 | NUR ---
Patient noticed CH WBC level 35.8, left message to MD. Patient in on Abx currently.
--- NOTE | 2021-12-03 07:30 | NUR ---
Patient noticed CH WBC level 35.8, left message to MD. Patient in on Abx currently.
[2021-12-03 07:33] LABS: WHITE BLOOD COUNT (AUTO) 35.8 K/uL (4.3-11.0)
--- NOTE | 2021-12-03 08:00 | NUR ---
RN Note Patient received in bed AO x 2-3, able to responds all stimuli. Respiratory even and unlabored with ventilator, no SOB observed. Skin is warm to touch, keep clean/dry. Patient does no appears pain or discomfort this morning. No nausea/vomit observed, also no residual via g tube. Call light within reach, kept elevated HOB for ensure airway and aspiration precaution. Will continue to monitor.
[2021-12-03] MEDS: PANTOPRAZOLE 40 MG/PACK PACK JT SCH (08:11)
[2021-12-03] MEDS: CHLORHEXIDINE GLUCONATE 15 ML UDC MM SCH ×2 (08:11→20:34)
[2021-12-03] MEDS: hydrALAZINE HCL 25 MG TABLET GT SCH ×2 (08:12→20:33)
[2021-12-03] MEDS: DAKINS QUARTER STRENGTH (0.125%) 480 ML BOTTLE TOP SCH (09:26)
[2021-12-03] MEDS: FLUCONAZOLE IN NS 100 MG in PREMIX 1 EA IV SCH (09:26)
[2021-12-03] MEDS: COLISTIMETHATE SODIUM 100 MG in IV NS 0.9% 50 ML IV SCH (10:06)
[2021-12-03] MEDS: POTASSIUM CL. PREMIX PERIPHER. 50 ML IV SCH ×3 (10:34→12:52)
[2021-12-03 11:26] LABS: BAND % (MANUAL) 3 % (0.0-5.0); EOSINOPHILS % (MANUAL) 2 % (0-4); LYMPHOCYTES % (MANUAL) 2 % (16-48); MONOCYTES % (MANUAL) 3 % (0-11.0); NEUTROPHILS % (MANUAL) 90 (42-76)
[2021-12-03] MEDS ORDERED: ANESTHESIA TRAY IN PYXIS 1 EA TRAY MC ONE (11:30)
[2021-12-03] MEDS ORDERED: BUPIVACAINE 0.5 % PF 150 MG/30 ML VIAL ONE (11:31)
--- NOTE | 2021-12-03 11:50 | NUR ---
Patient received order for Lap possible with bowel resection and HD catheter remove, telephone consent obtained by Sister/Alpacaitlyn Stewart.
--- NOTE | 2021-12-03 11:50 | NUR ---
Patient received order for Lap possible with bowel resection and HD catheter remove, telephone consent obtained by Sister/Alpacaitlyn Stewart.
--- NOTE | 2021-12-03 12:17 | NUR ---
Patient noticed BS 49 mg/dl at lunch time AC, received order IVF D51/2 NS at 45ml. Noted and carried out. Given Dextrose, will recheck BS in 15min.
[2021-12-03] MEDS: IV D5/0.45 NACL 1,000 ML IV PRN (12:53)
--- NOTE | 2021-12-03 12:58 | NUR ---
Rechecked BS: 113 mg/dl.
--- NOTE | 2021-12-03 12:58 | NUR ---
Rechecked BS: 113 mg/dl.
[2021-12-03] MEDS ORDERED: HYDROMORPHONE INJ 2 MG/ML DISP.SYRIN ONE (14:01)
[2021-12-03] MEDS ORDERED: ROCURONIUM BROMIDE 50 MG/5 ML ONE ×2 (14:01→14:29)
[2021-12-03] MEDS ORDERED: MIDAZOLAM HCL 2 MG/2ML VIAL ONE ×2 (14:01→14:30)
--- NOTE | 2021-12-03 14:13 | NUR ---
Patient left to the surgery in stable condition.
--- NOTE | 2021-12-03 14:13 | NUR ---
Patient left to the surgery in stable condition.
--- NOTE | 2021-12-03 15:19 | NUR ---
Patient back from procedure in stable condition. Clarified with Dr. Navarrete that continues g tube sanction. Faxed over to medication list and carried out all new order. V/S documented in intervention.
[2021-12-03] MEDS ORDERED: METOCLOPRAMIDE HCL 10 MG/2 ML VIAL IV SCH (17:00)
--- NOTE | 2021-12-03 17:39 | NUR ---
BS was 43 mg/dl, given Dextrose and rechecked BS 112 mg/dl, will continue to monitor. Patient is on D5 1/2NS at 45ml/hr.
--- NOTE | 2021-12-03 17:39 | NUR ---
BS was 43 mg/dl, given Dextrose and rechecked BS 112 mg/dl, will continue to monitor. Patient is on D5 1/2NS at 45ml/hr.
--- NOTE | 2021-12-03 17:56 | NUR ---
RN Closing Note Patient in bed, having HD by bed side. Remains AO x 2-3. S/P exploratory laparotomy lysis adhesion. No active bleeding observed from the site, also no farther vomited. Respiratory even and unlabored with ventilator. Does no appears pain or discomfort. Skin is warm to touch, keep clean/dry, intact midline on right upper arm. Kept elevated HOB for ensure airway and lower position of the bed for safety. Call light within reach, all needs met. will endorse warehouse worker 2nd shift.
--- NOTE | 2021-12-03 19:33 | NUR ---
RN OPENING NOTE PATIENT IN BED, EYES CLOSED. EASILY AWAKENED. PATIENT IS S/O LAPAROTOMY LYSIS OF ADHESION THIS AM. PATIENT'S TELE MONITOR READS 87 BPM SR. PATIENT IS NPO AT THIS TIME, KUB IN AM. PER SHAUN URBAN, PERMACATH WILL ALSO BE REMOVED PER DR. PRADHAN. PATIENT IS ON VENT AND INTERMITTENT GI SUCTION. NOT IN ANY APPARENT DISTRESS. SAFETY MEASURES IN PLACE: BED LOCKED AND IN LOWEST POSITION, CALL LIGHT WITHIN REACH, SIDE RAILS UP. WILL MONITOR PATIENT CLOSELY.[id number]
[2021-12-04] VITALS: BP 154/70
--- NOTE | 2021-12-04 | NUR ---
RN NOTE BS 150 MG/DL, WILL MONITOR FOR HYPOGLYCEMIA, NO COVERAGE GIVEN, PATIENT NPO
--- NOTE | 2021-12-04 | NUR ---
RN NOTE BS 150 MG/DL, WILL MONITOR FOR HYPOGLYCEMIA, NO COVERAGE GIVEN, PATIENT NPO
[2021-12-04] MEDS: diphenhydrAMINE HCL ELIX 25 MG/10 ML UDC GT SCH ×4 (02:00→20:27)
[2021-12-04 04:00] VITALS: BP 153/76
[2021-12-04] MEDS: METRONIDAZOLE 500MG/ NS 100ML 500 MG in PREMIX 1 EA IV SCH ×3 (04:41→20:27)
[2021-12-04] MEDS: BLOOD SUGAR DIAGNOSTIC 1 EACH STRIP IN SCH ×3 (05:21→17:10)
[2021-12-04 06:55] LABS: BASOPHILS # (AUTO) 0.1 K/uL (0.0-0.2); BASOPHILS % (AUTO) 0.2 % (0.0-2.0); HEMATOCRIT 21 % (33-45); LYMPHOCYTES # (AUTO) 0.9 K/uL (0.8-4.8); LYMPHOCYTES % (AUTO) 3.3 % (20.0-44.0); MEAN CORPUSCULAR HGB CONC 33 g/dl (31.0-36.0); MEAN CORPUSCULAR VOLUME 94 fL (82-100); MONOCYTES # (AUTO) 0.8 K/uL (0.1-1.30); MONOCYTES % (AUTO) 2.9 % (2.0-12.0); NEUTROPHILS # (AUTO) 25.1 K/uL (1.8-8.9); NEUTROPHILS % (AUTO) 93.6 % (43.0-81.0); PLATELET COUNT (AUTO) 361 K/uL (150-450); RED BLOOD CELL COUNT(AUTO) 2.27 MIL/uL (4.0-5.2); WHITE BLOOD COUNT (AUTO) 26.8 K/uL (4.3-11.0)
[2021-12-04 07:22] LABS: CALCIUM, SERUM 8.6 mg/dL (8.5-10.1); CREATININE 1.5 mg/dL (0.6-1.3); MAGNESIUM 2.1 mg/dL (1.8-2.4); PHOSPHORUS 3.1 mg/dL (2.5-4.9); POTASSIUM 3.5 mmol/L (3.5-5.1)
--- NOTE | 2021-12-04 07:27 | NUR ---
RN CLOSING NOTE PATIENT AWAKE IN BED. TOLERATING CURRENT VENT SETTINGS. NOT IN ANY APPARENT DISTRESS. PATIENT S/P LAPAROTOMY LYSIS OF ADHESION WITH DR. JONES YESTERDAY. DRESSING C/D/I. PATIENT STILL HAS INTERMITTENT GI SUCTION ON VIA JTUBE. WOUND TX RENDERED. BS 130 MG/DL NO COVERAGE, PATIENT NPO. IV ACCESS PATENT AND INTACT WITH IVF RUNNING. SAFETY MEASURES IMPLEMENTED. ALL NEEDS MET AND ATTENDED, ALL ORDERS CARRIED OUT. ENDORSED TO DAY SHIFT NURSE FOR YECENIA.
--- NOTE | 2021-12-04 07:50 | NUR ---
RN OPENING NOTES PATIENT AWAKE IN BED RESTING, AWAKE. A/O X2. NO S/S OF PAIN NOTED AT THIS TIME. ON VENT TOLERATING WELL, NO DISTRESS OR SHORTNESS OF BREATH NOTED. IV JANET MIDLINE, INTACT AND PATENT. PATIENT ON EXTERNAL PROTOTYPE SPECIAL BUILD WITH CURRENT READING OF S.R. WITH HR OF 86. FALL AND SAFETY MEASURES IN PLACE, BED ALARM ON, BED IN LOW AND LOCK POSITION, CALL LIGHT AND TABLE WITHIN EASY REACH, SIDE RAILS UP X2. WILL CONTINUE TO MONITOR
--- NOTE | 2021-12-04 07:50 | NUR ---
RN OPENING NOTES PATIENT AWAKE IN BED RESTING, AWAKE. A/O X2. NO S/S OF PAIN NOTED AT THIS TIME. ON VENT TOLERATING WELL, NO DISTRESS OR SHORTNESS OF BREATH NOTED. IV JANET MIDLINE, INTACT AND PATENT. 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 WITH HR OF 86. FALL AND SAFETY MEASURES IN PLACE, BED ALARM ON, BED IN LOW AND LOCK POSITION, CALL LIGHT AND TABLE WITHIN EASY REACH, SIDE RAILS UP X2. WILL CONTINUE TO MONITOR
[2021-12-04] MEDS ORDERED: LIDOCAINE HCL/PF 1% 30 ML VIAL MC ONE (08:00)
[2021-12-04] MEDS: LINEZOLID RTU BAG 600 MG in PREMIX 1 EA IV SCH ×2 (08:15→21:32)
[2021-12-04] MEDS: CHLORHEXIDINE GLUCONATE 15 ML UDC MM SCH ×2 (08:15→20:27)
[2021-12-04] MEDS: PANTOPRAZOLE 40 MG/PACK PACK JT SCH (08:15)
[2021-12-04] MEDS: hydrALAZINE HCL 25 MG TABLET GT SCH ×2 (08:16→21:18)
[2021-12-04] MEDS: HYDROMORPHONE HCL 2 MG TABLET JT PRN ×2 (08:16→18:07)
[2021-12-04 08:17] VITALS: BP 186/86
--- NOTE | 2021-12-04 08:51 | NUR ---
BARREL LATHE OPERATOR INSIDE NOTES ASSISTED DR. PRADHAN WITH HEMODIALYSIS CATHETER REMOVAL AT BEDSIDE, PT TOLERATED PROCEDURE WELL, NO BLEEDING NOTED TO SITE, PRIMARY RN KAREN INFORMED.
--- NOTE | 2021-12-04 08:51 | NUR ---
ARMATURE WINDER REPAIR NOTES ASSISTED DR. PRADHAN WITH HEMODIALYSIS CATHETER REMOVAL AT BEDSIDE, PT TOLERATED PROCEDURE WELL, NO BLEEDING NOTED TO SITE, PRIMARY RN KAREN INFORMED.
[2021-12-04] MEDS: COLISTIMETHATE SODIUM 100 MG in IV NS 0.9% 50 ML IV SCH (09:40)
[2021-12-04] MEDS: DAKINS QUARTER STRENGTH (0.125%) 480 ML BOTTLE TOP SCH (09:53)
[2021-12-04 09:58] LABS: LYMPHOCYTES % (MANUAL) 2 % (16-48); MONOCYTES % (MANUAL) 2 % (0-11.0); NEUTROPHILS % (MANUAL) 96 (42-76)
--- NOTE | 2021-12-04 10:26 | NUR ---
LIDOCAINE HCI 1% USE THIS MORNING FOR PROCEDURE, PERMCATH REMOVAL.
--- NOTE | 2021-12-04 10:26 | NUR ---
LIDOCAINE HCI 1% USE THIS MORNING FOR PROCEDURE, PERMCATH REMOVAL.
[2021-12-04] MEDS ORDERED: NEPRO 1,000 ML BOTTLE GT SCH (11:55)
[2021-12-04 12:16] VITALS: BP 168/83
[2021-12-04] MEDS: FLUCONAZOLE IN NS 100 MG in PREMIX 1 EA IV SCH (13:03)
--- NOTE | 2021-12-04 14:39 | NUR ---
RN NOTES PATIENT G TUBE SUCTION WAS STOP AND STARTED G TUBE FEEDING 20ML/HR. DOCTOR (MICAELA JONES) WAS NOTIFIED. WILL CONTINUE TO MONITOR PATIENT.
--- NOTE | 2021-12-04 14:39 | NUR ---
RN NOTES PATIENT G TUBE SUCTION WAS STOP AND STARTED G TUBE FEEDING 20ML/HR. DOCTOR (MICAELA JONES) WAS NOTIFIED. WILL CONTINUE TO MONITOR PATIENT.
[2021-12-04 16:10] VITALS: BP 170/93
--- NOTE | 2021-12-04 19:05 | NUR ---
RN CLOSING NOTES PATIENT AWAKE IN BED RESTING, AWAKE. A/O X2. NO S/S OF PAIN NOTED AT THIS TIME. ON VENT TOLERATING WELL, NO DISTRESS OR SHORTNESS OF BREATH NOTED. IV JANET MIDLINE, INTACT AND PATENT. PATIENT ON EXTERNAL SERVICE SUPERVISOR WITH CURRENT READING OF S.R. WITH HR OF 88. ALL SCHEDULED MEDS ADMINISTERED. FALL AND SAFETY MEASURES IN PLACE, BED ALARM ON, BED IN LOW AND LOCK POSITION, CALL LIGHT AND TABLE WITHIN EASY REACH, SIDE RAILS UP X2. WILL ENDORSE TO LADIES SUIT OPERATOR.
--- NOTE | 2021-12-04 19:05 | NUR ---
RN CLOSING NOTES PATIENT AWAKE IN BED RESTING, AWAKE. A/O X2. NO S/S OF PAIN NOTED AT THIS TIME. ON VENT TOLERATING WELL, NO DISTRESS OR SHORTNESS OF BREATH NOTED. IV JANET MIDLINE, INTACT AND PATENT. PATIENT ON EXTERNAL COMPOUNDING ASSISTANT WITH CURRENT READING OF S.R. WITH HR OF 88. ALL SCHEDULED MEDS ADMINISTERED. FALL AND SAFETY MEASURES IN PLACE, BED ALARM ON, BED IN LOW AND LOCK POSITION, CALL LIGHT AND TABLE WITHIN EASY REACH, SIDE RAILS UP X2. WILL ENDORSE TO MATERIAL CLERK.
--- NOTE | 2021-12-04 19:30 | NUR ---
RN CLOSING NOTE PATIENT IN BED AWAKE, ON THE PHONE. PATIENT IS ABLE TO MAKE NEEDS KNOWN A/O X 3. PATIENT S/P HD CATH REMOVAL THIS AM. PATIENT ON MECH VENT, TOLERATING CURRENT VENT SETTINGS. PATIENT IS ON TF NEPRO AT 20 ML/HR, RESIDUAL 10 ML, FLUSHED BACK. NO N/V AT THIS TIME, PAIN MED GIVEN RECENTLY. PATIENT'S SX DRESSING C/D/I. NOT IN ANY APPARENT DISTRESS. SAFETY MEASURES IN PLACE: BED LOCKED AND IN LOWEST POSITION, CALL LIGHT WITHIN REACH, SIDE RAILS UP. HOB ELEVATED. WILL MONITOR PATIENT CLOSELY. Addendum: 12/04/21 at 2315 by JAKI MEJIA RN OPENING NOTE
[2021-12-04] MEDS: IV D5/0.45 NACL 1,000 ML IV PRN (19:37)
[2021-12-04 20:00] VITALS: BP 124/83
--- NOTE | 2021-12-05 | NUR ---
BS 124, NO COVERAGE GIVEN, WILL MONITOR PATIENT FOR HYPOGLYCEMIA
--- NOTE | 2021-12-05 | NUR ---
BS 124, NO COVERAGE GIVEN, WILL MONITOR PATIENT FOR HYPOGLYCEMIA
[2021-12-05] MEDS: BLOOD SUGAR DIAGNOSTIC 1 EACH STRIP IN SCH ×4 (00:07→18:40)
[2021-12-05] MEDS: ONDANSETRON HCL/PF 4 MG/2 ML VIAL IVP PRN (00:54)
--- NOTE | 2021-12-05 01:03 | NUR ---
RN NOTE GAVE ESTELAFRAN D/T N/V, TF ON PAUSE AT THIS TIME.
--- NOTE | 2021-12-05 01:03 | NUR ---
RN NOTE GAVE ESTELAFRAN D/T N/V, TF ON PAUSE AT THIS TIME.
[2021-12-05] MEDS: diphenhydrAMINE HCL ELIX 25 MG/10 ML UDC GT SCH ×4 (02:00→20:17)
--- NOTE | 2021-12-05 02:58 | NUR ---
GIOVANNI GT HELD D/T VOMITTING
--- NOTE | 2021-12-05 02:58 | NUR ---
GIOVANNI GT HELD D/T VOMITTING
--- NOTE | 2021-12-05 03:20 | NUR ---
JANET INFILTRATED. MULTIPLE PIV ATTEMPTS FAILED. ICU NURSE AND ER CALLED TO TRY. PER CHARGE NURSE, PATIENT TO BE ASSESSED FOR PICC LINE/MIDLINE.
--- NOTE | 2021-12-05 03:20 | NUR ---
JANET INFILTRATED. MULTIPLE PIV ATTEMPTS FAILED. ICU NURSE AND ER CALLED TO TRY. PER CHARGE NURSE, PATIENT TO BE ASSESSED FOR PICC LINE/MIDLINE.
[2021-12-05] MEDS: METRONIDAZOLE 500MG/ NS 100ML 500 MG in PREMIX 1 EA IV SCH ×3 (05:00→20:17)
--- NOTE | 2021-12-05 05:12 | NUR ---
FLAGYL NOT GIVEN. NO IV ACCESS AT THIS TIME.
--- NOTE | 2021-12-05 05:12 | NUR ---
FLAGYL NOT GIVEN. NO IV ACCESS AT THIS TIME.
--- NOTE | 2021-12-05 05:15 | NUR ---
BP 205/53 RECHECKED IT WAS 173/80. PATIENT NO IV ACCESS. INFORMED DOCTOR. ORDERED CLONIDINE PATCH.
--- NOTE | 2021-12-05 05:15 | NUR ---
BP 205/53 RECHECKED IT WAS 173/80. PATIENT NO IV ACCESS. INFORMED DOCTOR. ORDERED CLONIDINE PATCH.
[2021-12-05] MEDS ORDERED: METOCLOPRAMIDE HCL 10 MG/2 ML VIAL IV PRN (05:30)
[2021-12-05] MEDS ORDERED: CLONIDINE HCL 0.1MG/24H PTWK 1 EA PATCH TD SCH ×2 (05:30→08:00)
--- NOTE | 2021-12-05 05:53 | NUR ---
BS 50 MG/DL, BRENNA WORK STUDY STUDENT GAVE AN OK TO GIVE JUICE THROUGH J TUBE. GAVE OJ WITH SUGAR JT, WILL REASSESS IN 30 MIN.
--- NOTE | 2021-12-05 05:53 | NUR ---
BS 50 MG/DL, BRENNA EXCAVATING CONTRACTOR GAVE AN OK TO GIVE JUICE THROUGH J TUBE. GAVE OJ WITH SUGAR JT, WILL REASSESS IN 30 MIN.
--- NOTE | 2021-12-05 06:34 | NUR ---
BS 63 AFTER OJ, GAVE 30 MORE CC OF OJ THROUGH J TUBE.
--- NOTE | 2021-12-05 06:34 | NUR ---
BS 63 AFTER OJ, GAVE 30 MORE CC OF OJ THROUGH J TUBE.
[2021-12-05 06:36] LABS: BASOPHILS # (AUTO) 0.1 K/uL (0.0-0.2); BASOPHILS % (AUTO) 0.3 % (0.0-2.0); EOSINOPHILS % (AUTO) 0.4 % (0.0-6.0); HEMATOCRIT 22 % (33-45); HEMOGLOBIN 7.3 g/dL (11.5-14.8); LYMPHOCYTES # (AUTO) 1.8 K/uL (0.8-4.8); LYMPHOCYTES % (AUTO) 8.5 % (20.0-44.0); MEAN CORPUSCULAR HGB CONC 33 g/dl (31.0-36.0); MEAN CORPUSCULAR VOLUME 95 fL (82-100); MONOCYTES % (AUTO) 4.9 % (2.0-12.0); NEUTROPHILS # (AUTO) 17.8 K/uL (1.8-8.9); NEUTROPHILS % (AUTO) 85.9 % (43.0-81.0); PLATELET COUNT (AUTO) 364 K/uL (150-450); RED BLOOD CELL COUNT(AUTO) 2.35 MIL/uL (4.0-5.2); WHITE BLOOD COUNT (AUTO) 20.7 K/uL (4.3-11.0)
[2021-12-05 06:48] LABS: CREATININE 2.1 mg/dL (0.6-1.3); PHOSPHORUS 3.3 mg/dL (2.5-4.9); POTASSIUM 3.6 mmol/L (3.5-5.1)
--- NOTE | 2021-12-05 07:15 | NUR ---
RN CLOSING NOTE PATIENT BS 59 MG/DL. PATIENT STILL NO IV ACCESS FOR D5 ADMINISTRATION. GIVEN 30 MORE CC OF JUICE. DAY SHIFT RN AWARE. DR. JONES INFORMED REGARDING N/V. WAITING FOR RESPONSE. TOLERATING CURRENT VENT SETTING. BP 198/78, PHARMACY CALLED FOR CLONIDIDN 0.1 MG. WILL PUT IN CASSETTE AND RESCHEDULED. ENDORSED TO DAY SHIFT NURSE. Addendum: 12/05/21 at 0737 by JAKI MEJIA RN TF STILL OFF AT THIS TIME.
--- NOTE | 2021-12-05 08:11 | NUR ---
RN OPENING NOTES PATIENT AWAKE IN BED RESTING, AWAKE. A/O X2. NO S/S OF PAIN NOTED AT THIS TIME. ON VENT TOLERATING WELL, NO DISTRESS OR SHORTNESS OF BREATH NOTED. NO IV ACCESS. PATIENT ON EXTERNAL LIFE CYCLE ASSESSMENT ANALYST WITH CURRENT READING OF S.R. WITH HR OF 90. FALL AND SAFETY MEASURES IN PLACE, BED ALARM ON, BED IN LOW AND LOCK POSITION, CALL LIGHT AND TABLE WITHIN EASY REACH, SIDE RAILS UP X2. WILL CONTINUE TO MONITOR
--- NOTE | 2021-12-05 08:11 | NUR ---
RN OPENING NOTES PATIENT AWAKE IN BED RESTING, AWAKE. A/O X2. NO S/S OF PAIN NOTED AT THIS TIME. ON VENT TOLERATING WELL, NO DISTRESS OR SHORTNESS OF BREATH NOTED. NO IV ACCESS. PATIENT ON EXTERNAL AUDIT PRACTICE INTERN WITH CURRENT READING OF S.R. WITH HR OF 90. FALL AND SAFETY MEASURES IN PLACE, BED ALARM ON, BED IN LOW AND LOCK POSITION, CALL LIGHT AND TABLE WITHIN EASY REACH, SIDE RAILS UP X2. WILL CONTINUE TO MONITOR
[2021-12-05] MEDS: COLISTIMETHATE SODIUM 150 MG in IV NS 0.9% 50 ML IV SCH (09:56)
[2021-12-05] MEDS: hydrALAZINE HCL 25 MG TABLET GT SCH ×2 (10:15→20:18)
[2021-12-05] MEDS: PANTOPRAZOLE 40 MG/PACK PACK JT SCH (10:15)
[2021-12-05] MEDS: DAKINS QUARTER STRENGTH (0.125%) 480 ML BOTTLE TOP SCH (10:16)
[2021-12-05] MEDS: CHLORHEXIDINE GLUCONATE 15 ML UDC MM SCH ×2 (10:16→20:17)
[2021-12-05] MEDS: FLUCONAZOLE IN NS 100 MG in PREMIX 1 EA IV SCH (11:45)
[2021-12-05] MEDS: HYDROMORPHONE HCL 2 MG TABLET JT PRN (11:46)
--- NOTE | 2021-12-05 12:00 | NUR ---
RN NOTE PATIENT BLOOD GLUCOSE LEVEL WAS 12. DOCTOR WAS NOTIFIED AND SAID TO ADMINISTER 2 50% DEXTROSE AND CHANGE IV FLUIDS TO D10 NS. AFTER RECHECKING PATIENT BLOOD GLUCOSE WAS 156.
[2021-12-05] MEDS: DEXTROSE 50%-WATER 50 ML DISP.SYRIN IV PRN ×3 (12:20→18:08)
[2021-12-05] MEDS: Sodium Chloride 154 MEQ in IV 10% DEXTROSE 1,000 ML IV PRN (15:27)
[2021-12-05] MEDS: LINEZOLID RTU BAG 600 MG in PREMIX 1 EA IV SCH ×2 (15:28→21:52)
--- NOTE | 2021-12-05 17:00 | NUR ---
RN NOTE PATIENT BLOOD GLUCOSE IS LOW AGAIN, PATIENT BLOOD GLUCOSE IS 49. 50% DEXTROSE WAS GIVEN AND AFTER RECHECKING BLOOD GLUCOSE WAS 112. DOCTOR AND CHARGE NURSE NOTIFIED.
--- NOTE | 2021-12-05 19:35 | NUR ---
RN NOTES RECEIVED PATIENT ON VENT DEPENDENT , G-TUBE CONNEC TATIANNA TO LOW INTERMITTENT SUCTION, SR ON TELE MONITOR HR-78, NOT IN DISTRESS, NO PAIN NOTED, SIDERAILSUPX2, WILL COBNTINUE TO MONITOR
--- NOTE | 2021-12-05 19:59 | NUR ---
RN CLOSING NOTES PATIENT AWAKE IN BED RESTING, AWAKE. A/O X2. NO S/S OF PAIN NOTED AT THIS TIME. ON VENT TOLERATING WELL, NO DISTRESS OR SHORTNESS OF BREATH NOTED. NO IV ACCESS. PATIENT ON EXTERNAL ALARM INSTALLER WITH CURRENT READING OF S.R. WITH HR OF 87. FALL AND SAFETY MEASURES IN PLACE, BED ALARM ON, BED IN LOW AND LOCK POSITION, CALL LIGHT AND TABLE WITHIN EASY REACH, SIDE RAILS UP X2. PATIENT BLOOD GLUCOSE KEEP GOING DOWN, DOCTOR WAS NOTIFIED. WILL ENDORSE TO RADIO DIRECTOR.
--- NOTE | 2021-12-05 19:59 | NUR ---
RN CLOSING NOTES PATIENT AWAKE IN BED RESTING, AWAKE. A/O X2. NO S/S OF PAIN NOTED AT THIS TIME. ON VENT TOLERATING WELL, NO DISTRESS OR SHORTNESS OF BREATH NOTED. NO IV ACCESS. PATIENT ON EXTERNAL MATERIAL ASSEMBLER WITH CURRENT READING OF S.R. WITH HR OF 87. FALL AND SAFETY MEASURES IN PLACE, BED ALARM ON, BED IN LOW AND LOCK POSITION, CALL LIGHT AND TABLE WITHIN EASY REACH, SIDE RAILS UP X2. PATIENT BLOOD GLUCOSE KEEP GOING DOWN, DOCTOR WAS NOTIFIED. WILL ENDORSE TO MINING HELPER.
[2021-12-05 20:00] VITALS: BP 144/65
[2021-12-05] MEDS ORDERED: EPOETIN ALFA-EPBX 4,000 UNIT/ML VIAL IV PRN (21:30)
[2021-12-06] VITALS (7 sets, daily range): BP systolic 90–167; BP diastolic 52–84
[2021-12-06] MEDS: BLOOD SUGAR DIAGNOSTIC 1 EACH STRIP IN SCH ×5 (00:03→23:46)
[2021-12-06] MEDS: diphenhydrAMINE HCL ELIX 25 MG/10 ML UDC GT SCH ×4 (02:00→20:31)
[2021-12-06] MEDS: METRONIDAZOLE 500MG/ NS 100ML 500 MG in PREMIX 1 EA IV SCH ×3 (04:55→20:33)
[2021-12-06] MEDS: DEXTROSE 50%-WATER 50 ML DISP.SYRIN IV PRN ×3 (05:21→12:27)
--- NOTE | 2021-12-06 05:29 | NUR ---
RN NOTES BLOOD SUGAR-51, D50 IV GIVEN, WILL MONITOR
--- NOTE | 2021-12-06 05:29 | NUR ---
RN NOTES BLOOD SUGAR-51, D50 IV GIVEN, WILL MONITOR
[2021-12-06 06:36] LABS: BASOPHILS # (AUTO) 0.1 K/uL (0.0-0.2); BASOPHILS % (AUTO) 0.6 % (0.0-2.0); EOSINOPHILS % (AUTO) 6.4 % (0.0-6.0); LYMPHOCYTES # (AUTO) 1.9 K/uL (0.8-4.8); LYMPHOCYTES % (AUTO) 13.1 % (20.0-44.0); MEAN CORPUSCULAR HGB CONC 33 g/dl (31.0-36.0); MEAN CORPUSCULAR VOLUME 96 fL (82-100); MONOCYTES % (AUTO) 6.7 % (2.0-12.0); NEUTROPHILS # (AUTO) 10.9 K/uL (1.8-8.9); NEUTROPHILS % (AUTO) 73.2 % (43.0-81.0); PLATELET COUNT (AUTO) 271 K/uL (150-450); WHITE BLOOD COUNT (AUTO) 14.9 K/uL (4.3-11.0)
--- NOTE | 2021-12-06 06:44 | NUR ---
RN NOTES AFTER GIVING D50 BLOOD SUGAR WENT UP TO 97, NOT IN DISTRESS, NO PAIN NOTED, PT. NEEDS ATTENDED
--- NOTE | 2021-12-06 06:44 | NUR ---
RN NOTES AFTER GIVING D50 BLOOD SUGAR WENT UP TO 97, NOT IN DISTRESS, NO PAIN NOTED, PT. NEEDS ATTENDED
[2021-12-06 06:56] LABS: RED BLOOD CELL COUNT(AUTO) 1.98 MIL/uL (4.0-5.2)
[2021-12-06 07:01] LABS: HEMATOCRIT 19 % (33-45); HEMOGLOBIN 6.2 g/dL (11.5-14.8)
--- NOTE | 2021-12-06 07:05 | NUR ---
RN NOTES LAB CALLED AND INFORMED NME REGARDING PATIENT H&H 6.01/18. ENDORSED TO DAYSHIFT NURSE TO GET AN ORDER FROM THE MD, PRODUCE TEAM LEAD DOCTOR FINISH AT 0700. CHARGE NURSE IS AWARE
--- NOTE | 2021-12-06 07:05 | NUR ---
RN NOTES LAB CALLED AND INFORMED NME REGARDING PATIENT H&H 6.01/18. ENDORSED TO DAYSHIFT NURSE TO GET AN ORDER FROM THE MD, GOLF CART REPAIRER DOCTOR FINISH AT 0700. CHARGE NURSE IS AWARE
[2021-12-06 07:29] LABS: CALCIUM, SERUM 7.9 mg/dL (8.5-10.1); CREATININE 2.6 mg/dL (0.6-1.3); PHOSPHORUS 3.7 mg/dL (2.5-4.9); POTASSIUM 3.3 mmol/L (3.5-5.1)
--- NOTE | 2021-12-06 07:38 | NUR ---
RN OPENING NOTES RECEIVED Pt ASLEEP IN BED, EASILY AROUSABLE, A/O X2. NO S/S OF PAIN NOTED AT THIS TIME. ON VENT TOLERATING WELL, NO DISTRESS OR SHORTNESS OF BREATH NOTED. FALL AND SAFETY MEASURES IN PLACE, BED ALARM ON, BED IS LOCKED AND IN LOWEST POSITION, CALL LIGHT AND BEDSIDE TABLE WITHIN EASY REACH, SIDE RAILS UP X2. WILL CONTINUE TO MONITOR THROUGHOUT THE SHIFT
--- NOTE | 2021-12-06 08:32 | NUR ---
RN NOTES-MEDICATIONS NO PO OR GT MEDS GIVEN BEING HELD DUE TO Pt'S DIAGNOSIS.
--- NOTE | 2021-12-06 08:32 | NUR ---
RN NOTES-MEDICATIONS NO PO OR GT MEDS GIVEN BEING HELD DUE TO Pt'S DIAGNOSIS.
[2021-12-06] MEDS: DAKINS QUARTER STRENGTH (0.125%) 480 ML BOTTLE TOP SCH (09:00)
[2021-12-06] MEDS: PANTOPRAZOLE 40 MG/PACK PACK JT SCH (09:51)
[2021-12-06] MEDS: hydrALAZINE HCL 25 MG TABLET GT SCH ×2 (09:51→20:32)
[2021-12-06] MEDS: CHLORHEXIDINE GLUCONATE 15 ML UDC MM SCH ×2 (09:51→20:31)
[2021-12-06] MEDS: COLISTIMETHATE SODIUM 150 MG in IV NS 0.9% 50 ML IV SCH (09:51)
[2021-12-06] MEDS: HYDROMORPHONE 1 MG/1 ML DISP.SYRIN IV PRN ×2 (10:37→15:11)
[2021-12-06] MEDS: FLUCONAZOLE IN NS 100 MG in PREMIX 1 EA IV SCH (11:10)
[2021-12-06 12:17] LABS: BAND % (MANUAL) 1 % (0.0-5.0); EOSINOPHILS % (MANUAL) 11 % (0-4); LYMPHOCYTES % (MANUAL) 9 % (16-48); MONOCYTES % (MANUAL) 5 % (0-11.0); NEUTROPHILS % (MANUAL) 74 (42-76)
[2021-12-06] MEDS: LINEZOLID RTU BAG 600 MG in PREMIX 1 EA IV SCH ×2 (12:20→21:46)
--- NOTE | 2021-12-06 19:25 | NUR ---
MONEY LAUNDERING INVESTIGATOR CLOSING NOTES Pt IS RESTING IN BED AND EASILY AROUSABLE. Pt IS ON VENT AND TOLERATING WELL. NO SIGNS OF DISCOMFORT OR SIGNS OF PAIN NOTICED. Pt IS ON G TUBE FEEDING 20cc/HR AND TOLERATING WELL AT THIS TIME. Pt HAS A R UA MIDLINE SALINE LOCK THAT IS PATENT AND INTACT. SAFETY MEASURES ARE IN PLACE: BED IS LOCKED AND IN LOWEST POSITION, SIDE RAILS UP x3, BED SIDE TABLE AND CALL LIGHT ARE WITHIN REACH. ALL NEEDS MET. WILL ENDORSE TO ONCOMING SHIFT.
--- NOTE | 2021-12-06 19:35 | NUR ---
RN opening notes Received Pt from morning nurse. Pt is laying in bed comfortably and awake. Pt is alert and orientedX2. Pt speaks Bengali and able to make needs known. Pt is on mec. vent with saturation 100%. No SOB. No S/S of distress noted. Tele monitor showed SR hr at 70. JANET midline is clean, intact and infuising well 10% dextrose in sodium chloride @ 50 ml/hr. Gtube is intact and running nephro @ 30ml/hr. Safety precautions is maintained. bed at low position, brakes locked, side rails upX3, hob elevated and call light is within reach. Will continue to monitor.
[2021-12-06] MEDS: HYDROMORPHONE HCL 2 MG TABLET JT PRN (22:33)
--- NOTE | 2021-12-06 22:33 | NUR ---
RN notes Pt is complaining of pain on generalized pain and requesting pain med. administered dilaudid tab/2mg/1tab/gtube as ordered for pain. safety precautions is maintained. Will continue to monitor.
[2021-12-06] MEDS: INSULIN REGULAR, HUMAN 100 UNIT/ML 3 ML VIAL SQ PRN (23:46)
[2021-12-07] VITALS (16 sets, daily range): BP systolic 131–169; BP diastolic 62–97
--- NOTE | 2021-12-07 00:12 | NUR ---
RN notes Spoke with rivas Beard regarding blood and when to oyster picker the blood. Chirag mentioned that they are short staff and there's no CLS staff right now that can release the blood. Chirag also mentioned that he will call his supervisor process testing and will call the primary nurse. Charge nurse is aware and informed. dining service supervisor informed and notified. Will inform domestic housekeeper again. awaiting for Chirag calls.
--- NOTE | 2021-12-07 00:12 | NUR ---
RN notes Spoke with rivas Beard regarding blood and when to quill picking machine operator the blood. Chirag mentioned that they are short staff and there's no CLS staff right now that can release the blood. Chirag also mentioned that he will call his circuit breaker supervisor and will call the primary nurse. Charge nurse is aware and informed. supervisor trust accounts informed and notified. Will inform house mover again. awaiting for Chirag calls.
[2021-12-07] MEDS: Sodium Chloride 154 MEQ in IV 10% DEXTROSE 1,000 ML IV PRN (00:45)
--- NOTE | 2021-12-07 01:12 | NUR ---
RN notes Called and spoke with rivas Beard. Chirag informed that he left a message to his airport operations supervisor and awaiting for answer and will let primary nurse knows. Charge nurse and warehouse associate driver is informed and aware. Will continue to monitor.
--- NOTE | 2021-12-07 01:12 | NUR ---
RN notes Called and spoke with rivas Beard. Chirag informed that he left a message to his supervisor stone and awaiting for answer and will let primary nurse knows. Charge nurse and head housekeeper is informed and aware. Will continue to monitor.
[2021-12-07] MEDS: diphenhydrAMINE HCL ELIX 25 MG/10 ML UDC GT SCH ×4 (01:49→20:00)
[2021-12-07] MEDS: METRONIDAZOLE 500MG/ NS 100ML 500 MG in PREMIX 1 EA IV SCH ×4 (04:19→21:16)
--- NOTE | 2021-12-07 05:25 | NUR ---
RN notes Called and spoke with Chirag hathaway to check on blood. Chirag stated "One of them will be here at 6'oclock and will give you a call." Charge nurse is aware and informed.
[2021-12-07] MEDS: BLOOD SUGAR DIAGNOSTIC 1 EACH STRIP IN SCH ×3 (05:37→17:26)
[2021-12-07] MEDS: INSULIN REGULAR, HUMAN 100 UNIT/ML 3 ML VIAL SQ PRN (05:40)
--- NOTE | 2021-12-07 06:40 | NUR ---
RN closing notes Pt is resting in bed comfortably. Pt is alert and orientedX2. Pt speaks Bolivian and able to make needs known. Pt is on mec. vent with saturation 100%. No SOB. No S/S of distress noted. Tele monitor showed SR hr at 75. JANET midline is clean, intact and infuising well 10% dextrose in sodium chloride @ 50 ml/hr. Gtube is intact and running nephro @ 20ml/hr. Routine meds were given as ordered. Kept Pt clean, dry and comfortable. Safety precautions is maintained. bed at low position, brakes locked, side rails upX3, hob elevated and call light is within reach. Will endorse to am nurse for YECENIA.
--- NOTE | 2021-12-07 07:39 | NUR ---
ENTERPRISE SALES EXECUTIVE OPENING NOTES RECEIVED Pt ASLEEP IN BED, EASILY AROUSABLE, A/O X2. NO S/S OF PAIN NOTED AT THIS TIME. Pt IS ON VENT TOLERATING WELL, NO DISTRESS OR SHORTNESS OF BREATH NOTED. R UA MIDLINE IS PATENT AND INTACT. Pt HAD G TUBE FEEDING RUNNING AT 20mL/hr AND TOLERATING WELL. FALL AND SAFETY MEASURES IN PLACE, BED ALARM ON, BED IS LOCKED AND IN LOWEST POSITION, CALL LIGHT AND BEDSIDE TABLE WITHIN EASY REACH, SIDE RAILS UP X3. WILL CONTINUE TO MONITOR THROUGHOUT THE SHIFT
[2021-12-07 08:10] LABS: BASOPHILS # (AUTO) 0.1 K/uL (0.0-0.2); BASOPHILS % (AUTO) 0.5 % (0.0-2.0); EOSINOPHILS % (AUTO) 17.3 % (0.0-6.0); LYMPHOCYTES # (AUTO) 1.5 K/uL (0.8-4.8); LYMPHOCYTES % (AUTO) 9.5 % (20.0-44.0); MEAN CORPUSCULAR HGB CONC 33 g/dl (31.0-36.0); MEAN CORPUSCULAR VOLUME 93 fL (82-100); MONOCYTES # (AUTO) 0.8 K/uL (0.1-1.30); MONOCYTES % (AUTO) 4.9 % (2.0-12.0); NEUTROPHILS # (AUTO) 10.9 K/uL (1.8-8.9); NEUTROPHILS % (AUTO) 67.8 % (43.0-81.0); PLATELET COUNT (AUTO) 270 K/uL (150-450); RED BLOOD CELL COUNT(AUTO) 2.07 MIL/uL (4.0-5.2)
[2021-12-07 08:44] LABS: CALCIUM, SERUM 7.6 mg/dL (8.5-10.1); CREATININE 2.9 mg/dL (0.6-1.3); MAGNESIUM 1.7 mg/dL (1.8-2.4); PHOSPHORUS 4.4 mg/dL (2.5-4.9); POTASSIUM 3.2 mmol/L (3.5-5.1)
[2021-12-07] MEDS: LINEZOLID RTU BAG 600 MG in PREMIX 1 EA IV SCH ×2 (09:00→18:46)
[2021-12-07] MEDS: COLISTIMETHATE SODIUM 150 MG in IV NS 0.9% 50 ML IV SCH ×2 (09:00→16:27)
[2021-12-07] MEDS: CHLORHEXIDINE GLUCONATE 15 ML UDC MM SCH ×2 (09:13→22:22)
[2021-12-07] MEDS: hydrALAZINE HCL 25 MG TABLET GT SCH ×2 (09:14→20:56)
[2021-12-07] MEDS: PANTOPRAZOLE 40 MG/PACK PACK JT SCH (09:14)
[2021-12-07] MEDS: DAKINS QUARTER STRENGTH (0.125%) 480 ML BOTTLE TOP SCH (09:15)
[2021-12-07] MEDS: FLUCONAZOLE IN NS 100 MG in PREMIX 1 EA IV SCH (09:20)
[2021-12-07 09:48] LABS: HEMOGLOBIN 6.3 g/dL (11.5-14.8)
[2021-12-07 09:49] LABS: HEMATOCRIT 19 % (33-45)
[2021-12-07] MEDS: HYDROMORPHONE 1 MG/1 ML DISP.SYRIN IV PRN ×2 (11:10→17:37)
--- NOTE | 2021-12-07 11:54 | NUR ---
LIFE SKILLS WORKER NOTES- LABS NOTIFIED ABOUT AM LABS: K+ 3.2, NA 126, AND Mg 1.7. ONLY Mg TO BE REPLACED. WILL CONTINUE TO MONITOR.
--- NOTE | 2021-12-07 11:54 | NUR ---
CENTRAL STERILE TECHNICIAN NOTES- LABS NOTIFIED ABOUT AM LABS: K+ 3.2, NA 126, AND Mg 1.7. ONLY Mg TO BE REPLACED. WILL CONTINUE TO MONITOR.
[2021-12-07] MEDS ORDERED: Magnesium 1 GM/2 ML VIAL IV ONE ×2 (12:00→13:00)
--- NOTE | 2021-12-07 12:31 | NUR ---
TRAVELER CHANGER NOTES- IV MEDS Pt ANTIBIOTICS AND Mg IV HELD DUE TO BLOOD TRANSFUSION. WILL ADMINISTER ONCE TRANSFUSION IS FINISHED.
--- NOTE | 2021-12-07 12:31 | NUR ---
GENERAL INTERNIST NOTES- IV MEDS Pt ANTIBIOTICS AND Mg IV HELD DUE TO BLOOD TRANSFUSION. WILL ADMINISTER ONCE TRANSFUSION IS FINISHED.
[2021-12-07] MEDS: DEXTROSE 50%-WATER 50 ML DISP.SYRIN IV PRN ×2 (12:46→17:26)
--- NOTE | 2021-12-07 12:46 | NUR ---
SKEIN WINDING OPERATOR NOTES Pt's BLOOD SUGAR CHECK WAS 44. D50 ADMINISTER. WILL CONTINUE TO MONITOR.
--- NOTE | 2021-12-07 12:46 | NUR ---
ORTHO NURSE NOTES Pt's BLOOD SUGAR CHECK WAS 44. D50 ADMINISTER. WILL CONTINUE TO MONITOR.
[2021-12-07] MEDS ORDERED: diphenhydrAMINE HCL ELIX 25 MG/10 ML UDC ONE (13:31)
--- NOTE | 2021-12-07 14:26 | NUR ---
ARMHOLE PRESSER NOTES DIPHENHYDRAMINE 25MG NOT GIVEN Pt WAS ALREADY GIVEN 50MG AT 1335. WILL CONTINUE TO MONITOR.
--- NOTE | 2021-12-07 14:26 | NUR ---
ACUTE CARE CERTIFIED NURSING ASSISTANT NOTES DIPHENHYDRAMINE 25MG NOT GIVEN Pt WAS ALREADY GIVEN 50MG AT 1335. WILL CONTINUE TO MONITOR.
--- NOTE | 2021-12-07 14:39 | NUR ---
DOCK COORDINATOR NOTES: TRANSFUSION FINISHED BLOOD TRANSFUSION FINISHED, Pt TOLERATED WELL. VITAL SIGNS ARE STABLE. NO ADVERSE REACTIONS. WILL CONTINUE TO MONITOR.
--- NOTE | 2021-12-07 14:39 | NUR ---
FOOD PRODUCTION MACHINE OPERATOR NOTES: TRANSFUSION FINISHED BLOOD TRANSFUSION FINISHED, Pt TOLERATED WELL. VITAL SIGNS ARE STABLE. NO ADVERSE REACTIONS. WILL CONTINUE TO MONITOR.
[2021-12-07 16:41] LABS: EOSINOPHILS % (MANUAL) 14 % (0-4); LYMPHOCYTES % (MANUAL) 5 % (16-48); MONOCYTES % (MANUAL) 3 % (0-11.0); NEUTROPHILS % (MANUAL) 78 (42-76)
--- NOTE | 2021-12-07 17:00 | NUR ---
HOME WORKER NOTES AM IV MEDS BEING ADMINISTERED NOW. WILL CONTINUE TO MONITOR Pt.
--- NOTE | 2021-12-07 17:00 | NUR ---
ASSOCIATE ACCOUNT DIRECTOR NOTES AM IV MEDS BEING ADMINISTERED NOW. WILL CONTINUE TO MONITOR Pt.
--- NOTE | 2021-12-07 18:41 | NUR ---
BOAT DIESEL MOTOR MECHANIC CLOSING NOTES Pt IS RESTING IN BED ASLEEP AND EASILY AROUSABLE. A/Ox2-, Pt IS ON VENT AND TOLERATING WELL. Pt IS ABLE TO MAKE NEEDS KNOWN. NO SIGNS OF DISCOMFORT OR SIGNS OF PAIN NOTICED AT THI TIME. Pt IS ON G TUBE FEEDING WITH NEPRO 20cc/HR AND TOLERATING WELL AT THIS TIME. Pt HAS A R UA MIDLINE THAT IS INFUSING 10% DEXTROSE @ 50mL/hr. IV IS PATENT AND INTACT. SAFETY MEASURES ARE IN PLACE: BED IS LOCKED AND IN LOWEST POSITION, SIDE RAILS UP x3, BED SIDE TABLE AND CALL LIGHT ARE WITHIN REACH. ALL NEEDS MET. WILL ENDORSE TO ONCOMING SHIFT. Addendum: 12/07/21 at 1847 by OSIRIS HODGES RN Pt RECEIVED ALL IV ANTIBIOTICS FOR TODAY. Pt RECEIVED BLOOD TRANSFUSION AND TOLERATED WELL.
--- NOTE | 2021-12-07 19:30 | NUR ---
STAIN SPRAYER NOTES RECEIVED ON BED SLEEPING AROUSABLE TO VERBAL STIMULI,BREATHING NON LABORED ON TRACH TO VENT,SETTING TOLERATED WELL,GT FEEDING PROGRESS AR 20ML/HR RATE,INCONTINENT OF B/B,WITH RIGHT UPPER MIDLINE FOR MED,IV ZYVOX INFUSING,PRESENT IVF 10% DEXTROSE.WILL CONTINUE TO MONITOR STATUS.
--- NOTE | 2021-12-07 19:30 | NUR ---
HEEL BRUSHER NOTES RECEIVED ON BED SLEEPING AROUSABLE TO VERBAL STIMULI,BREATHING NON LABORED ON TRACH TO VENT,SETTING TOLERATED WELL,GT FEEDING PROGRESS AR 20ML/HR RATE,INCONTINENT OF B/B,WITH RIGHT UPPER MIDLINE FOR MED,IV ZYVOX INFUSING,PRESENT IVF 10% DEXTROSE.WILL CONTINUE TO MONITOR STATUS.
--- NOTE | 2021-12-07 21:00 | NUR ---
BALING MACHINE TENDER NOTES DUE CARMEN WINN
--- NOTE | 2021-12-07 21:00 | NUR ---
CULLED FRUIT PACKER NOTES DUE CARMEN WINN
--- NOTE | 2021-12-07 22:00 | NUR ---
DIRECTOR LEARNING SERVICES NOTES NEW SALINE LOCK PLACE ON LEFT HAND #22.
--- NOTE | 2021-12-07 22:00 | NUR ---
RESEARCH LABORATORY MANAGER NOTES NEW SALINE LOCK PLACE ON LEFT HAND #22.
--- NOTE | 2021-12-07 22:30 | NUR ---
TRAIN DRIVER NOTES HOSPITALIST BRENNA MADE AWARE THAT MAGNESIUM WAS 1.7,MAGNESIUM 2 GM IV WAS ORDERED BUT IT WASNT GIVEN BY DAY NURSE BECAUSE PT WAS HAVING BLOOD TRANSFUSION AND WITH THREE IV ANTIBIOTICS TO BE HUNG.
--- NOTE | 2021-12-07 22:30 | NUR ---
BARREL STAVE INSPECTOR NOTES HOSPITALIST BRENNA MADE AWARE THAT MAGNESIUM WAS 1.7,MAGNESIUM 2 GM IV WAS ORDERED BUT IT WASNT GIVEN BY DAY NURSE BECAUSE PT WAS HAVING BLOOD TRANSFUSION AND WITH THREE IV ANTIBIOTICS TO BE HUNG.
--- NOTE | 2021-12-07 22:45 | NUR ---
LUBRICATING MACHINE TENDER NOTES HOSPITALIST LAURA TO RE ORDER IT AND INFUSE,NOTED AND CARRIED OUT.
--- NOTE | 2021-12-07 22:45 | NUR ---
TUBE DRAWING SUPERVISOR NOTES HOSPITALIST LAURA TO RE ORDER IT AND INFUSE,NOTED AND CARRIED OUT.
[2021-12-07] MEDS ORDERED: Magnesium 1GM/D5W 100ML PREMIX PIGGYBACK IV ONE (23:00)
--- NOTE | 2021-12-07 23:00 | NUR ---
WELDING MACHINE OPERATOR THERMIT NOTES MAGNESIUM 1 GM IV HUNG,INFUSING AT 100ML/HR RATE OVER 1 HOUR VIA IV PUMP.
--- NOTE | 2021-12-07 23:00 | NUR ---
VENDING MACHINE COIN COLLECTOR NOTES MAGNESIUM 1 GM IV HUNG,INFUSING AT 100ML/HR RATE OVER 1 HOUR VIA IV PUMP.
[2021-12-07] MEDS: Magnesium 1GM/D5W 100ML PREMIX 100 ML IV SCH (23:04)
[2021-12-08] VITALS (42 sets, daily range): BP systolic 72–153; BP diastolic 18–85
--- NOTE | 2021-12-08 | NUR ---
GRADUATE STUDIES DEAN NOTES SECOND IV MAGNESIUM HUNG.
--- NOTE | 2021-12-08 | NUR ---
REFLEXOLOGIST NOTES SECOND IV MAGNESIUM HUNG.
[2021-12-08] MEDS: Magnesium 1GM/D5W 100ML PREMIX 100 ML IV SCH (00:01)
[2021-12-08] MEDS: BLOOD SUGAR DIAGNOSTIC 1 EACH STRIP IN SCH ×5 (00:02→23:19)
--- NOTE | 2021-12-08 00:10 | NUR ---
RESOURCE PROGRAM TEACHER NOTES ACCU-CHECK BLOOD SUGAR CHECK 58 ON LEFT HAND FINGER,REPEATED ON RIGHT HAND THUMB AND IT WAS 53,CHARGE NURSE MADE AWARE.
--- NOTE | 2021-12-08 00:10 | NUR ---
HARVEST MANAGER NOTES ACCU-CHECK BLOOD SUGAR CHECK 58 ON LEFT HAND FINGER,REPEATED ON RIGHT HAND THUMB AND IT WAS 53,CHARGE NURSE MADE AWARE.
[2021-12-08] MEDS: DEXTROSE 50%-WATER 50 ML DISP.SYRIN IV PRN ×5 (00:18→18:50)
--- NOTE | 2021-12-08 00:18 | NUR ---
HYDROMETER FINISHER NOTES D50 1 AMPULE GIVEN IV PUSH PER PROTOCOL,WILL RE CHECK BLOOD SUGAR IN AN HOUR.
--- NOTE | 2021-12-08 00:18 | NUR ---
ROLL PLUGGER MACHINE OPERATOR NOTES D50 1 AMPULE GIVEN IV PUSH PER PROTOCOL,WILL RE CHECK BLOOD SUGAR IN AN HOUR.
--- NOTE | 2021-12-08 00:48 | NUR ---
FOOD PACKER NOTES ACCU-CHECK BLOOD SUGAR RE CHECK 141 POST D50 1 AMP GIVEN
--- NOTE | 2021-12-08 00:48 | NUR ---
CHANNEL MARKETING COORDINATOR NOTES ACCU-CHECK BLOOD SUGAR RE CHECK 141 POST D50 1 AMP GIVEN
[2021-12-08] MEDS: diphenhydrAMINE HCL ELIX 25 MG/10 ML UDC GT SCH ×2 (01:40→09:46)
[2021-12-08] MEDS: HYDROMORPHONE 1 MG/1 ML DISP.SYRIN IV PRN (04:18)
--- NOTE | 2021-12-08 04:18 | NUR ---
TUBER MACHINE CUTTER NOTES PAIN MANAGEMENT C/O RIGHT AKA PAIN 8/10 ON PAIN SCALE,DILAUDID 0.5MG IV GIVEN ORDERED FOR STRONG PAIN
--- NOTE | 2021-12-08 04:18 | NUR ---
BATCH TRUCKER NOTES PAIN MANAGEMENT C/O RIGHT AKA PAIN 8/10 ON PAIN SCALE,DILAUDID 0.5MG IV GIVEN ORDERED FOR STRONG PAIN
--- NOTE | 2021-12-08 04:30 | NUR ---
FOX FARMER NOTES MORNING CARE RENDERED.DRESSING CHANGED WITH DAKINS SOLUTION TO SACRAL AREA DONE
--- NOTE | 2021-12-08 04:30 | NUR ---
PIT MANAGER NOTES MORNING CARE RENDERED.DRESSING CHANGED WITH DAKINS SOLUTION TO SACRAL AREA DONE
[2021-12-08] MEDS: METRONIDAZOLE 500MG/ NS 100ML 500 MG in PREMIX 1 EA IV SCH ×3 (04:37→20:43)
[2021-12-08] MEDS: LINEZOLID RTU BAG 600 MG in PREMIX 1 EA IV SCH ×2 (05:27→18:09)
--- NOTE | 2021-12-08 06:00 | NUR ---
CASTING MACHINE SET UP OPERATOR NOTES ACCU-CHECK BLOOD SUGAR CHECK 52, AWAKE,ALERT,D50 1 AMPULE GIVEN,CHARGE NURSE CARLIN BETANCOURT.
--- NOTE | 2021-12-08 06:00 | NUR ---
SCHOOL BUS DRIVER/MECHANIC NOTES ACCU-CHECK BLOOD SUGAR CHECK 52, AWAKE,ALERT,D50 1 AMPULE GIVEN,CHARGE NURSE CARLIN BETANCOURT.
--- NOTE | 2021-12-08 06:49 | NUR ---
TARIFF SUPERVISOR NOTES ACCU-CHECK BLOOD SUGAR RE ASSESSMENT 159,SLEEPING,AROUSABLE TO VERBAL STIMULI.
--- NOTE | 2021-12-08 06:49 | NUR ---
SUPERVISOR PROP MAKING NOTES ACCU-CHECK BLOOD SUGAR RE ASSESSMENT 159,SLEEPING,AROUSABLE TO VERBAL STIMULI.
--- NOTE | 2021-12-08 06:50 | NUR ---
BUSINESS COMPUTERS TEACHER NOTES CALM THRU OUT SHIFT,PREFERRED TO TURN ON RIGHT SIDE,HOB ELEVATED FOR ASPIRATION PRECAUTION,GT FEEDING IN PROGRESS,IN NO ACUTE DISTRESS.
--- NOTE | 2021-12-08 06:50 | NUR ---
PANEL MONITOR NOTES CALM THRU OUT SHIFT,PREFERRED TO TURN ON RIGHT SIDE,HOB ELEVATED FOR ASPIRATION PRECAUTION,GT FEEDING IN PROGRESS,IN NO ACUTE DISTRESS.
--- NOTE | 2021-12-08 07:50 | NUR ---
TELE/RN OPENING NOTES RECEIVED PATIENT IN BED, ON VENT. ALERT, ABLE TO ACKNOWLEDGE PRESENCE OF PEOPLE. PRESENCE OF GTUBE, FEEDING ON HOLD. SAFETY PRECAUTIONS ON PLACED: BED LOCKED ON LOWEST POSITION, SIDE RAILS UPX3, CALL LIGHT WITHIN REACH. WILL CONTINUE TO MONITOR PATIENT.
[2021-12-08 07:58] LABS: BASOPHILS # (AUTO) 0.1 K/uL (0.0-0.2); BASOPHILS % (AUTO) 0.5 % (0.0-2.0); EOSINOPHILS % (AUTO) 18.6 % (0.0-6.0); HEMATOCRIT 24 % (33-45); LYMPHOCYTES # (AUTO) 1.6 K/uL (0.8-4.8); LYMPHOCYTES % (AUTO) 10.6 % (20.0-44.0); MEAN CORPUSCULAR HGB CONC 33 g/dl (31.0-36.0); MEAN CORPUSCULAR VOLUME 93 fL (82-100); MONOCYTES # (AUTO) 0.7 K/uL (0.1-1.30); NEUTROPHILS # (AUTO) 9.5 K/uL (1.8-8.9); NEUTROPHILS % (AUTO) 65.3 % (43.0-81.0); PLATELET COUNT (AUTO) 245 K/uL (150-450); WHITE BLOOD COUNT (AUTO) 14.6 K/uL (4.3-11.0)
[2021-12-08 08:45] LABS: CALCIUM, SERUM 8.4 mg/dL (8.5-10.1); CREATININE 3.4 mg/dL (0.6-1.3); MAGNESIUM 2.4 mg/dL (1.8-2.4); PHOSPHORUS 4.7 mg/dL (2.5-4.9); POTASSIUM 3.3 mmol/L (3.5-5.1)
[2021-12-08] MEDS: PANTOPRAZOLE 40 MG/PACK PACK JT SCH (09:46)
[2021-12-08] MEDS: hydrALAZINE HCL 25 MG TABLET GT SCH ×2 (09:47→20:39)
[2021-12-08] MEDS: DAKINS QUARTER STRENGTH (0.125%) 480 ML BOTTLE TOP SCH (09:48)
[2021-12-08] MEDS: COLISTIMETHATE SODIUM 150 MG in IV NS 0.9% 50 ML IV SCH (09:50)
[2021-12-08] MEDS: FLUCONAZOLE IN NS 100 MG in PREMIX 1 EA IV SCH (09:50)
[2021-12-08] MEDS: CHLORHEXIDINE GLUCONATE 15 ML UDC MM SCH ×2 (11:17→20:43)
--- NOTE | 2021-12-08 11:24 | NUR ---
TELE/RN NOTES- POTASSIUM RESULT NOTIFIED DR MCNEIL REGARDING POTASSIUM 3.3 RESULT, PER MD, NO REPLACEMENT NEEDED DUE TO PATIENT BEING AN ESRD PATIENT.
--- NOTE | 2021-12-08 11:24 | NUR ---
TELE/RN NOTES- POTASSIUM RESULT NOTIFIED DR MCNEIL REGARDING POTASSIUM 3.3 RESULT, PER MD, NO REPLACEMENT NEEDED DUE TO PATIENT BEING AN ESRD PATIENT.
[2021-12-08] MEDS ORDERED: diphenhydrAMINE HCL ELIX 25 MG/10 ML UDC GT PRN (13:00)
[2021-12-08] MEDS: PANTOPRAZOLE 40 MG VIAL IV SCH (13:13)
[2021-12-08 14:19] LABS: ABG BASE EXCESS -7.4 mmol/L; ABG OXYGEN SATURATION 84.6 % (92.0-98.5); ABG PCO2 70.6 mmHg (35.0-45.0); ABG PH 7.115 (7.350-7.450); ABG PO2 62.4 mmHg (75.0-100.0); COHb 0.8 % (0.5-1.5); MetHb 0.6 % (0.0-1.5); O2Hb 83.4 % (94.0-97.0); SITE, ABG Left Radial; VENT MODE, BG ac 18 300 100% +5
--- NOTE | 2021-12-08 14:50 | NUR ---
TELE/RN NOTES PATIENT IS DESATURATING TO 80'S, LETHARGIC. DR. MCNEIL SEEN PATIENT AT BEDSIDE AND ORDERED PATIENT TO BE TRANSFERRED TO ICU FOR A HIGHER LEVEL OF CARE.
--- NOTE | 2021-12-08 15:00 | NUR ---
PATIENT TRANSFERRED TO ICU.
--- NOTE | 2021-12-08 15:00 | NUR ---
RECEIVED PT FROM 3W VERY LETHARGIC, ON TRACH/VENT, PT ACCOMPANIED BY RT AND RNS, S/P ASPIRATION OF GASTRIC RESIDUAL, HOOKED TO MONITOR WITH SPO2 87% SUCTIONING DONE WITH GREENISH SECRETION NOTED, HOOKED TO MONITOR WITH READING SINUS RHYTHM 70'S V/S CHECKED WITH BP 72/[address] MCNEIL WITH ORDER FOR LEVOPHED TO TITRATE PER PROTOCOL BLOOD SUGAR CHECKED 34, PRN D50 ADMINISTERED, GTUBE HOOKED TO LOW INTERMITTENT SUCTION PER MD ORDER WITH GREENISH SECRETION NOTED, PER DR HAIR INSTRUCTION VENT SETTING CHANGE RATE TO 24 AND TV 400 AND ABG AFTER 2 HOURS NOTED AND CARRIED OUT
--- NOTE | 2021-12-08 15:00 | NUR ---
PATIENT TRANSFERRED TO ICU.
[2021-12-08] MEDS: NOREPINEPHRINE 32 MG in IV NS 0.9% 218 ML IV PRN (15:07)
[2021-12-08 17:25] LABS: ABG BASE EXCESS -9.2 mmol/L; ABG OXYGEN SATURATION 92.8 % (92.0-98.5); ABG PCO2 64.6 mmHg (35.0-45.0); ABG PH 7.116 (7.350-7.450); ABG PO2 81.4 mmHg (75.0-100.0); COHb 0.3 % (0.5-1.5); MetHb 0.6 % (0.0-1.5); SITE, ABG Left Radial; VENT MODE, BG ac 24 400 100% +5
--- NOTE | 2021-12-08 19:19 | NUR ---
RN NOTE PATIENT IN BED WITH HEAD OF BED ELEVATED. LETHARGIC AT THIS TIME, RESPONSIVE TO STIMULI. ON TRACH TO VENT, TOLERATING VENT SETTINGS WELL. SECRETIONS NOTED GREEN AND THICK. HOOKED TO MONITOR, HR 100'S. NO S/S OF DISCOMFORT. IV ACCESS ON JANET PICC INFUSING D10NS @ 50ML/HR AND LEVO 0.1MCG/KG/MIN. NO S/S OF INFILTRATION. BED LOCKED AND IN LOWEST POSITION. CALL LIGHT WITHIN REACH. ALL NEEDS ANTICIPATED.
--- NOTE | 2021-12-08 19:44 | NUR ---
PT ON BED STILL LETHARGIC ON TRACH/VENT SETTING PER MD FIO2 100% SPO2 98% STILL ON LEVOPHED @ 0.1MCG/KG/MIN INFUSING VIA JANET PICC ALSO WITH D10 NS @ 50ML/HR INFUSING WELL, PT HAVE GTUBE CONNECTED TO LIS WITH GREENISH OUTPUT BED ON LOWEST POSITION AND LOCKED SIDE RAILS UP ENDORSED TO AM SHIFT NURSE
[2021-12-08] MEDS: INSULIN REGULAR, HUMAN 100 UNIT/ML 3 ML VIAL SQ PRN (23:20)
[2021-12-09] VITALS (87 sets, daily range): BP systolic 87–144; BP diastolic 16–74
--- NOTE | 2021-12-09 | NUR ---
RN NOTE PATIENT'S TEMP 93.8. SAL MADE AWARE WITH NEW ORDERS NOTED AND CARRIED OUT.
--- NOTE | 2021-12-09 | NUR ---
RN NOTE PATIENT'S TEMP 93.8. SAL MADE AWARE WITH NEW ORDERS NOTED AND CARRIED OUT.
[2021-12-09] MEDS: DEXTROSE 50%-WATER 50 ML DISP.SYRIN IV PRN ×3 (00:14→11:43)
--- NOTE | 2021-12-09 00:14 | NUR ---
RN NOTE RECHECHED PATIENT'S BLOOD SUGAR, NOTED 60. ADMINISTERED DEXTROSE PRN ORDERED. WILL CONTINUE TO MONITOR.
--- NOTE | 2021-12-09 00:14 | NUR ---
RN NOTE RECHECHED PATIENT'S BLOOD SUGAR, NOTED 60. ADMINISTERED DEXTROSE PRN ORDERED. WILL CONTINUE TO MONITOR.
[2021-12-09] MEDS: Sodium Chloride 154 MEQ in IV 10% DEXTROSE 1,000 ML IV PRN (02:08)
[2021-12-09] MEDS: HYDROMORPHONE 1 MG/1 ML DISP.SYRIN IV PRN (02:25)
[2021-12-09 02:44] LABS: ABG BASE EXCESS -11.5 mmol/L; ABG OXYGEN SATURATION 83.2 % (92.0-98.5); ABG PCO2 53.8 mmHg (35.0-45.0); ABG PH 7.128 (7.350-7.450); ABG PO2 53.3 mmHg (75.0-100.0); AaDO2 605.9 mmHg; COHb 0.3 % (0.5-1.5); MetHb 0.7 % (0.0-1.5); O2Hb 82.4 % (94.0-97.0); SITE, ABG Right Radial; VENT MODE, BG AC 30 430 100%
--- NOTE | 2021-12-09 02:59 | NUR ---
RN NOTE RELAYED ABG TO AMANDA HUANG, ALSO INFORMED PATIENTS RECTAL TEMP 94.2. SAL WILL PLACE NEW ORDERS.
--- NOTE | 2021-12-09 02:59 | NUR ---
RN NOTE RELAYED ABG TO AMANDA HUANG, ALSO INFORMED PATIENTS RECTAL TEMP 94.2. SAL WILL PLACE NEW ORDERS.
[2021-12-09] MEDS ORDERED: SODIUM BICARBONATE SYR 50 MEQ/50 ML DISP.SYRIN IV ONE (03:00)
[2021-12-09] MEDS ORDERED: Sodium Bicarbonate 100 MEQ in IV D5/ 0.9% NACL 1,000 ML IV PRN (03:00)
[2021-12-09] MEDS ORDERED: SODIUM BICARBONATE SYR 50 MEQ/50 ML DISP.SYRIN ONE (03:26)
[2021-12-09 03:37] LABS: BASOPHILS # (AUTO) 0.1 K/uL (0.0-0.2); BASOPHILS % (AUTO) 0.3 % (0.0-2.0); EOSINOPHILS % (AUTO) 10.1 % (0.0-6.0); HEMATOCRIT 26 % (33-45); HEMOGLOBIN 8.5 g/dL (11.5-14.8); LYMPHOCYTES % (AUTO) 4.6 % (20.0-44.0); MEAN CORPUSCULAR HGB CONC 32 g/dl (31.0-36.0); MEAN CORPUSCULAR VOLUME 94 fL (82-100); MONOCYTES # (AUTO) 0.9 K/uL (0.1-1.30); MONOCYTES % (AUTO) 4.3 % (2.0-12.0); NEUTROPHILS # (AUTO) 17.2 K/uL (1.8-8.9); NEUTROPHILS % (AUTO) 80.7 % (43.0-81.0); PLATELET COUNT (AUTO) 247 K/uL (150-450); RED BLOOD CELL COUNT(AUTO) 2.81 MIL/uL (4.0-5.2); WHITE BLOOD COUNT (AUTO) 21.3 K/uL (4.3-11.0)
[2021-12-09 03:44] LABS: ALKALINE PHOSPHATASE 230 U/L (46-116); BILIRUBIN,DIRECT 0.8 mg/dL (0.0-0.2); BILIRUBIN,TOTAL 1.1 mg/dL (0.2-1.0); CALCIUM, SERUM 7.5 mg/dL (8.5-10.1); CARBON DIOXIDE 19 mmol/L (21-32); CREATININE 3.7 mg/dL (0.6-1.3); GLUCOSE 105 mg/dL (74-106); MAGNESIUM 2.1 mg/dL (1.8-2.4); PHOSPHORUS 4.4 mg/dL (2.5-4.9); TOTAL PROTEIN, SERUM 5.8 g/dL (6.4-8.2); UREA NITROGEN, BLOOD 28 mg/dL (7-18)
[2021-12-09 03:55] LABS: ALANINE AMINOTRANSFERASE < 6 U/L (12-78)
[2021-12-09 04:12] LABS: ASPARTATE AMINOTRANSFERASE 27 U/L (15-37)
[2021-12-09 04:25] LABS: CHLORIDE 91 mmol/L (98-107); SODIUM SERUM 124 mmol/L (136-145)
[2021-12-09 04:36] LABS: ALBUMIN 1.4 g/dL (3.4-5.0); POTASSIUM 2.7 mmol/L (3.5-5.1)
[2021-12-09] MEDS: METRONIDAZOLE 500MG/ NS 100ML 500 MG in PREMIX 1 EA IV SCH ×3 (04:42→21:00)
[2021-12-09] MEDS: LINEZOLID RTU BAG 600 MG in PREMIX 1 EA IV SCH ×2 (05:59→16:58)
[2021-12-09] MEDS ORDERED: POTASSIUM CHLORIDE 10 MEQ/50 ML PREMIXED IVPB FOR PERIPHERAL LINE IV ONE (06:00)
[2021-12-09] MEDS: BLOOD SUGAR DIAGNOSTIC 1 EACH STRIP IN SCH ×4 (06:13→23:34)
--- NOTE | 2021-12-09 07:05 | NUR ---
RN NOTE RECEIVED PT ON BED, ALERT / DOES NOT FOLLOW COMMAND, VENT/ TRACH DEPENDENT, TOLERATING CURRENT VENT SETTING WELL, O2 SAT WNL, PATIENT HEAD OF BED ELEVATED. SECRETIONS NOTED GREEN. IV ACCESS ON JANET PICC INFUSING LEVO 0.2 MCG/KG/MIN, AND BICARB @ 100MLS/HR. NO S/S OF INFILTRATION NOTED, G -TUBE CONNECTED TO LIS , SR UP x3, CALL LIGHT WITHIN EASY REACH BED LOCKED AND LOWEST POSITION, CONTINUE TO MONITOR
--- NOTE | 2021-12-09 07:24 | NUR ---
RN NOTE PATIENT IN BED WITH HEAD OF BED ELEVATED. MORE AWAKE AT THIS TIME. ON TRACH TO VENT, TOLERATING VENT SETTINGS WELL. SECRETIONS NOTED GREEN. IV ACCESS ON JANET PICC INFUSING LEVO 0.2MCG/KG/MIN, AND BICARB @ 100MLS/HR. NO S/S OF INFILTRATION. BLOOD SUGAR THIS AM 54. ADMINISTERED DEXTROSE PRN ORDERED. RECHECKED BLOOD SUGAR 154. RELAYED CRITICAL LAB TO BRENNA HUANG WITH NEW ORDERS NOTED AND CARRIED OUT. J-TUBE CONTINUES ON LIS, 400CC GREENISH SECRETIONS NOTED. HAD X1 SMALL BM, ALSO NOTED GREEN AND LOOSE. KEPT CLEAN AND COMFORTABLE. BED LOCKED AND IN LOWEST POSITION. CALL LIGHT WITHIN REACH. ENDORSED TO AM SHIFT.
[2021-12-09] MEDS: hydrALAZINE HCL 25 MG TABLET GT SCH ×2 (08:22→21:00)
[2021-12-09] MEDS: DAKINS QUARTER STRENGTH (0.125%) 480 ML BOTTLE TOP SCH (08:23)
[2021-12-09] MEDS: CHLORHEXIDINE GLUCONATE 15 ML UDC MM SCH ×2 (08:23→21:00)
[2021-12-09] MEDS: COLISTIMETHATE SODIUM 150 MG in IV NS 0.9% 50 ML IV SCH (08:25)
[2021-12-09] MEDS ORDERED: SODIUM BICARBONATE IV PRN (08:30)
[2021-12-09] MEDS ORDERED: DEXTROSE IV PRN (08:30)
[2021-12-09] MEDS: FLUCONAZOLE IN NS 100 MG in PREMIX 1 EA IV SCH (09:26)
[2021-12-09 09:32] LABS: ABG BASE EXCESS -10.4 mmol/L; ABG OXYGEN SATURATION 94.7 % (92.0-98.5); ABG PCO2 41.8 mmHg (35.0-45.0); ABG PH 7.219 (7.350-7.450); ABG PO2 75.4 mmHg (75.0-100.0); AaDO2 595.8 mmHg; COHb 0.3 % (0.5-1.5); MetHb 0.8 % (0.0-1.5); O2Hb 93.7 % (94.0-97.0); PEEP,BG 0 cm H2O; SITE, ABG Left Brachial; VT, ABG 430 mL
[2021-12-09] MEDS: PANTOPRAZOLE 40 MG VIAL IV SCH (12:04)
--- NOTE | 2021-12-09 14:00 | NUR ---
RN NOTES, NO THORACENTESIS TODAY PER RADIOLOGIST DUE TO HIGH INR , DR HAIR NOTIFIED.
--- NOTE | 2021-12-09 14:00 | NUR ---
RN NOTES DR MCNEIL NOTIFIED REGARDING LA 5.5, NO NEW ORDER GIVEN , CONTINUE TO MONITOR .
--- NOTE | 2021-12-09 14:00 | NUR ---
RN NOTES DR MCNEIL NOTIFIED REGARDING LA 5.5, NO NEW ORDER GIVEN , CONTINUE TO MONITOR .
--- NOTE | 2021-12-09 14:00 | NUR ---
RN NOTES, NO THORACENTESIS TODAY PER RADIOLOGIST DUE TO HIGH INR , DR HAIR NOTIFIED.
--- NOTE | 2021-12-09 14:38 | NUR ---
PER RADIOLOGIST THORACENTESIS ON HOLD DUE TO ELEVATED INR. RN BRYSON BETANCOURT
--- NOTE | 2021-12-09 14:38 | NUR ---
PER RADIOLOGIST THORACENTESIS ON HOLD DUE TO ELEVATED INR. RN BRYSON BETANCOURT
[2021-12-09] MEDS: Sodium Bicarbonate 150 MEQ in IV 10% DEXTROSE 1,000 ML IV SCH (15:07)
[2021-12-09] MEDS: NOREPINEPHRINE 32 MG in IV NS 0.9% 218 ML IV PRN (16:59)
--- NOTE | 2021-12-09 18:00 | NUR ---
RN NOTE PT REMAINS ON LEVO AT .4 MCG/KG/MIN, TRACH CARE AND SUCTIONING DONE NEEDED , TOLERAING CURRENT VENT SETTING , O2 SAT WNL, GT ATTACHED TO LIS WITH DARK GREENISH GASTRIC DRAINAGE, WOUND CARE DONE , BICARB DRIP AT 100CC/HR RUNNING , R UPPER ARM PICC LINE SITE CLEAN, DRY AND INTACT, SR UP x3, CALL LIGHT WITHIN EASY REACH, BED LOCKED AND IN LOWEST POSITION, WILL ENDORSE TO CARDROOM SUPERVISOR NURSE FOR CONTINUITY OF CARE.
--- NOTE | 2021-12-09 18:00 | NUR ---
RN NOTE PT REMAINS ON LEVO AT .4 MCG/KG/MIN, TRACH CARE AND SUCTIONING DONE NEEDED , TOLERAING CURRENT VENT SETTING , O2 SAT WNL, GT ATTACHED TO LIS WITH DARK GREENISH GASTRIC DRAINAGE, WOUND CARE DONE , BICARB DRIP AT 100CC/HR RUNNING , R UPPER ARM PICC LINE SITE CLEAN, DRY AND INTACT, SR UP x3, CALL LIGHT WITHIN EASY REACH, BED LOCKED AND IN LOWEST POSITION, WILL ENDORSE TO TOPLINE BEADING MACHINE TENDER NURSE FOR CONTINUITY OF CARE.
--- NOTE | 2021-12-09 19:30 | NUR ---
RN/ICU-RECEIVED PT,AWAKE,ALERT, MOUTHS WORDS TO COMMUNICATE.ON THE VENT PER TRACH, ON AC MODE, FIO2-100%. EKG ST HR 113, BP-107/46, ON LEVOPHED DRIP AT 0.4 MCG/KG/MIN. WILL TITRATE TO KEEP SBP>90. ON D10WIL + 3 AMPS. OF SODIUM BICARB AT 100ML/HR.PT. IS ON A LINE HOLIDAY FOR HD.W/ PEG IN PLACE HOOKED UP TO LOW INTERMITTENT SUCTION,W/ MINIMAL AMOUNT OF GREENISH GI CONTENTS.AFEBRILE T-97.3/F, PT. W/ SKIN PROBLEMS. REFER TO SKIN PROBLEM ASSESSMENT AND WOUND PHOTO FOR DETAILS.
[2021-12-09 19:41] LABS: BAND % (MANUAL) 16 % (0.0-5.0); EOSINOPHILS % (MANUAL) 12 % (0-4); LYMPHOCYTES % (MANUAL) 3 % (16-48); MONOCYTES % (MANUAL) 2 % (0-11.0); NEUTROPHILS % (MANUAL) 67 (42-76)
--- NOTE | 2021-12-09 21:01 | NUR ---
RN/ICU-APRESOLINE NOT GIVEN ,BP-101/46, 0N LEVOPHED DRIP.
--- NOTE | 2021-12-09 21:01 | NUR ---
RN/ICU-APRESOLINE NOT GIVEN ,BP-101/46, 0N LEVOPHED DRIP.
[2021-12-10] VITALS (36 sets, daily range): BP systolic 64–129; BP diastolic 26–59
[2021-12-10] MEDS: Sodium Bicarbonate 150 MEQ in IV 10% DEXTROSE 1,000 ML IV SCH (02:16)
[2021-12-10] MEDS: METRONIDAZOLE 500MG/ NS 100ML 500 MG in PREMIX 1 EA IV SCH ×2 (04:46→13:13)
[2021-12-10] MEDS: DEXTROSE 50%-WATER 50 ML DISP.SYRIN IV PRN ×2 (05:37→14:19)
[2021-12-10] MEDS: BLOOD SUGAR DIAGNOSTIC 1 EACH STRIP IN SCH ×2 (05:37→05:52)
--- NOTE | 2021-12-10 05:37 | NUR ---
RN/ICU- [facility], D50W 1 AMP. SIVP GIVEN, PROTOCOL FOLLOWED
--- NOTE | 2021-12-10 05:37 | NUR ---
RN/ICU- [facility], D50W 1 AMP. SIVP GIVEN, PROTOCOL FOLLOWED
[2021-12-10] MEDS: LINEZOLID RTU BAG 600 MG in PREMIX 1 EA IV SCH (05:43)
[2021-12-10 06:15] LABS: BASOPHILS % (AUTO) 0.1 % (0.0-2.0); EOSINOPHILS % (AUTO) 4.8 % (0.0-6.0); HEMATOCRIT 26 % (33-45); HEMOGLOBIN 8.4 g/dL (11.5-14.8); LYMPHOCYTES # (AUTO) 1.2 K/uL (0.8-4.8); LYMPHOCYTES % (AUTO) 3.9 % (20.0-44.0); MEAN CORPUSCULAR HGB CONC 33 g/dl (31.0-36.0); MEAN CORPUSCULAR VOLUME 94 fL (82-100); MONOCYTES # (AUTO) 0.9 K/uL (0.1-1.30); NEUTROPHILS # (AUTO) 28.1 K/uL (1.8-8.9); NEUTROPHILS % (AUTO) 88.2 % (43.0-81.0); PLATELET COUNT (AUTO) 178 K/uL (150-450); RED BLOOD CELL COUNT(AUTO) 2.75 MIL/uL (4.0-5.2)
[2021-12-10 07:07] LABS: CALCIUM, SERUM 7.6 mg/dL (8.5-10.1); CREATININE 3.7 mg/dL (0.6-1.3); MAGNESIUM 1.8 mg/dL (1.8-2.4); PHOSPHORUS 4.9 mg/dL (2.5-4.9)
--- NOTE | 2021-12-10 07:30 | NUR ---
TIRE BUFFER OPENING NOTES Patient received on vent settings of tv 450 fi02 of 100 and peep of 0 with 02 sat of 96%. Patient is alert and responsive to stimuli. J tube connected to low intermittent suction with green drainage. Patient is running levo to right upper arm at 4.35 mcg/kg/min and fluids. Patient noted with low sbp and typewriters functional tester increased levo and will monitor. Call light with in reach. Bed is in lowest and locked position.
--- NOTE | 2021-12-10 07:30 | NUR ---
AUTOMOTIVE PAINTER OPENING NOTES Patient received on vent settings of tv 450 fi02 of 100 and peep of 0 with 02 sat of 96%. Patient is alert and responsive to stimuli. J tube connected to low intermittent suction with green drainage. Patient is running levo to right upper arm at 4.35 mcg/kg/min and fluids. Patient noted with low sbp and ticket writer increased levo and will monitor. Call light with in reach. Bed is in lowest and locked position.
[2021-12-10] MEDS: hydrALAZINE HCL 25 MG TABLET GT SCH (08:13)
[2021-12-10] MEDS: CHLORHEXIDINE GLUCONATE 15 ML UDC MM SCH (08:39)
[2021-12-10] MEDS: DAKINS QUARTER STRENGTH (0.125%) 480 ML BOTTLE TOP SCH (08:40)
[2021-12-10 08:44] LABS: ABG BASE EXCESS -12.8 mmol/L; ABG OXYGEN SATURATION 92.1 % (92.0-98.5); ABG PCO2 42.4 mmHg (35.0-45.0); ABG PH 7.168 (7.350-7.450); ABG PO2 69.8 mmHg (75.0-100.0); AaDO2 600.8 mmHg; COHb 0.3 % (0.5-1.5); MetHb 0.8 % (0.0-1.5); O2Hb 91.1 % (94.0-97.0); SITE, ABG Left Radial
--- NOTE | 2021-12-10 08:50 | NUR ---
Vent settings changed to 450 tidal volume at 8:45 am by RT based on ABG and MD Peleg orders.
--- NOTE | 2021-12-10 08:50 | NUR ---
Vent settings changed to 450 tidal volume at 8:45 am by RT based on ABG and MD Peleg orders.
[2021-12-10] MEDS: COLISTIMETHATE SODIUM 150 MG in IV NS 0.9% 50 ML IV SCH (09:05)
[2021-12-10 09:13] LABS: WHITE BLOOD COUNT (AUTO) 31.8 K/uL (4.3-11.0)
[2021-12-10] MEDS: FLUCONAZOLE IN NS 100 MG in PREMIX 1 EA IV SCH (10:05)
[2021-12-10 10:22] LABS: BILIRUBIN,DIRECT 0.8 mg/dL (0.0-0.2); BILIRUBIN,TOTAL 1.1 mg/dL (0.2-1.0)
[2021-12-10 11:49] LABS: ALBUMIN 1.2 g/dL (3.4-5.0)
--- NOTE | 2021-12-10 12:00 | NUR ---
Received call from Radiology that they are unable to do thoracentesis due to high inr. MD Chester made aware and Dr Broderick made aware. Called blood bank to follow up on Plasma orders, unable to get a hold.
[2021-12-10] MEDS: NOREPINEPHRINE 32 MG in IV NS 0.9% 218 ML IV PRN (12:12)
[2021-12-10 12:31] LABS: BAND % (MANUAL) 12 % (0.0-5.0); EOSINOPHILS % (MANUAL) 3 % (0-4); LYMPHOCYTES % (MANUAL) 3 % (16-48); MONOCYTES % (MANUAL) 4 % (0-11.0); NEUTROPHILS % (MANUAL) 78 (42-76)
--- NOTE | 2021-12-10 12:50 | NUR ---
Patient taken to CT scan and in stable condition.
--- NOTE | 2021-12-10 12:50 | NUR ---
Patient taken to CT scan and in stable condition.
[2021-12-10] MEDS: PANTOPRAZOLE 40 MG VIAL IV SCH (13:13)
[2021-12-10] MEDS ORDERED: PHENYLEPHRINE HCL IN 0.9% NACL 50 MG in PREMIX 1 EA IV PRN (13:30)
--- NOTE | 2021-12-10 13:40 | NUR ---
CT results relayed to surgeon Dr Navarrete and per MD she is not a candidate for surgery.
--- NOTE | 2021-12-10 13:40 | NUR ---
CT results relayed to surgeon Dr Navarrete and per MD she is not a candidate for surgery.
--- NOTE | 2021-12-10 13:43 | NUR ---
Received call from Dr Newton and per md patient CT is abnormal and nursing to relay to MD Navarrete. New order for Potassium 40 meq iv.
--- NOTE | 2021-12-10 13:43 | NUR ---
Received call from Dr Newton and per md patient CT is abnormal and nursing to relay to MD Navarrete. New order for Potassium 40 meq iv.
--- NOTE | 2021-12-10 13:50 | NUR ---
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 Stat ekg ordered.
--- NOTE | 2021-12-10 13:50 | NUR ---
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 Stat ekg ordered.
[2021-12-10] MEDS ORDERED: PHENYLEPHRINE 50 MG in IV NS 0.9% 245 ML IV PRN (14:00)
[2021-12-10] MEDS ORDERED: SODIUM BICARBONATE SYR 50 MEQ/50 ML DISP.SYRIN IV ONE (14:37)
[2021-12-10] MEDS ORDERED: EPINEPHRINE (1:10,000) SYRINGE 1 MG/10 ML DISP.SYRIN IVP ONE (14:37)
--- NOTE | 2021-12-10 14:40 | NUR ---
RT PATIENT CODED. CPR INITIATED. PATIENT DECLARED .
--- NOTE | 2021-12-10 14:40 | NUR ---
RT PATIENT CODED. CPR INITIATED. PATIENT DECLARED .
--- NOTE | 2021-12-10 14:50 | NUR ---
Patient's ekg results showed afib.Blood sugar checked and noted with results of 32 mg/dl, Dextorse provided via iv line and rechecked and noted with 209 mg/dl. While RT at bedside, patient rhythm pulseless at 1421. Code Blue iniitiated, CPR provided since patient is full code. Details in code blue sheet listed for medications. Patient was pronounced by Dr Broderick.Family member gunnar called by Dr Broderick and made aware. [facility] called and body released. Post mortum care provided. Md Chester made aware.
== END 2021-12-10 18:54 | DRG 711 ==
LOC: ER 16:43 → TELE1 19:52 → TELE-TD 20:19 → TELE1 11-21 17:01 → TELE 11-27 02:04 → ICU 12-08 14:44
PROVIDERS: ADMIT Registered Nurse; ATTEND Nurse Practitioner Acute Care
PROC: 5A1955Z Respiratory Ventilation, Greater than 96 Consecutive Hours (ICD-10-PCS; principal; 2021-11-20)
PROC: 0W993ZX Drainage of Right Pleural Cavity, Percutaneous Approach, Diagnostic (ICD-10-PCS; 2021-11-21)
PROC: 05HB33Z Insertion of Infusion Device into Right Basilic Vein, Percutaneous Approach (ICD-10-PCS; 2021-11-21)
PROC: 0D20XUZ Change Feeding Device in Upper Intestinal Tract, External Approach (ICD-10-PCS; 2021-11-21)
PROC: 0KBN0ZZ Excision of Right Hip Muscle, Open Approach (ICD-10-PCS; 2021-11-27)
PROC: 0KBP0ZZ Excision of Left Hip Muscle, Open Approach (ICD-10-PCS; 2021-11-27)
PROC: 0DN80ZZ Release Small Intestine, Open Approach (ICD-10-PCS; 2021-12-03)
PROC: 0JPT3XZ Removal of Tunneled Vascular Access Device from Trunk Subcutaneous Tissue and Fascia, Percutaneous Approach (ICD-10-PCS; 2021-12-04)
PROC: 30233N1 Transfusion of Nonautologous Red Blood Cells into Peripheral Vein, Percutaneous Approach (ICD-10-PCS; 2021-12-06)
PROC: 02HV33Z Insertion of Infusion Device into Superior Vena Cava, Percutaneous Approach (ICD-10-PCS; 2021-12-08)
PROC: B548ZZA Ultrasonography of Superior Vena Cava, Guidance (ICD-10-PCS; 2021-12-08)
DX: T80.211A Bloodstream infection due to central venous catheter, initial encounter (principal); A41.50 Gram-negative sepsis, unspecified; J96.21 Acute and chronic respiratory failure with hypoxia; R65.21 Severe sepsis with septic shock; J69.0 Pneumonitis due to inhalation of food and vomit; K56.50 Intestinal adhesions [bands], unspecified as to partial versus complete obstruction; E46 Unspecified protein-calorie malnutrition; L89.154 Pressure ulcer of sacral region, stage 4; B37.0 Candidal stomatitis; E11.649 Type 2 diabetes mellitus with hypoglycemia without coma; E11.43 Type 2 diabetes mellitus with diabetic autonomic (poly)neuropathy; G90.9 Disorder of the autonomic nervous system, unspecified; D63.8 Anemia in other chronic diseases classified elsewhere; E11.319 Type 2 diabetes mellitus with unspecified diabetic retinopathy without macular edema; I12.0 Hypertensive chronic kidney disease with stage 5 chronic kidney disease or end stage renal disease; N18.6 End stage renal disease; E11.22 Type 2 diabetes mellitus with diabetic chronic kidney disease; E87.1 Hypo-osmolality and hyponatremia; Z99.11 Dependence on respirator [ventilator] status; Z99.2 Dependence on renal dialysis; E11.51 Type 2 diabetes mellitus with diabetic peripheral angiopathy without gangrene; Z20.822 Contact with and (suspected) exposure to COVID-19; K31.84 Gastroparesis; Z91.048 Other nonmedicinal substance allergy status; Z79.4 Long term (current) use of insulin; Z79.51 Long term (current) use of inhaled steroids; Z79.899 Other long term (current) drug therapy; J90 Pleural effusion, not elsewhere classified; J98.11 Atelectasis; Z93.0 Tracheostomy status; Z93.1 Gastrostomy status; R13.10 Dysphagia, unspecified; Z89.431 Acquired absence of right foot; H90.5 Unspecified sensorineural hearing loss; K80.20 Calculus of gallbladder without cholecystitis without obstruction; L03.114 Cellulitis of left upper limb; Y95 Nosocomial condition; Z89.612 Acquired absence of left leg above knee; H54.7 Unspecified visual loss; E87.6 Hypokalemia; R18.8 Other ascites; K56.7 Ileus, unspecified; D72.10 Eosinophilia, unspecified; D64.9 Anemia, unspecified; M89.8X9 Other specified disorders of bone, unspecified site; J15.6 Pneumonia due to other Gram-negative bacteria; J15.9 Unspecified bacterial pneumonia; Z66 Do not resuscitate
CPT/HCPCS: 31720; 36410; 36415; 36569; 36600; 71045-TC; 71250-TC; 74018; 74250-TC; 76604-TC; 80048-TC; 80076-TC; 80202-TC; 82803-TC; 82962-TC; 83540-TC; 83605-TC; 83735-TC; 84100-TC; 84443-TC; 84702-TC; 85025-TC; 85385-TC; 85610-TC; 85730-TC; 86850-TC; 87040-TC; 87070-TC; 87075-TC; 87081-TC; 87186-TC; 88108-TC; 88305-TC; 89051-TC; 90935-TC; 92950-TC; 94002-TC; 94003-TC; 94760-TC; 94762-TC; 94799-TC; 99082-TC; A4216; A6253; A6403; A7526; C9113; C9803; G0378; J0171; J0360; J0692; J0713; J0770; J0885; J1100; J1170; J1450; J1610; J1815; J2020; J2185; J2250; J2370; J2405; J2704; J2765; J3370; J3475; J3480; J3490; J7030; J7042; J7050; J7060; P9016; Q0163; Q9963; U0003